=== PATIENT | male | born 1930 | race Caucasian/White ===

== ENCOUNTER 2016-05-22 22:28 | Inpatient (IN) ==
[2016-05-22 23:23] LABS: Basophils # (Auto) 0.1 K/mcL (0.0-0.3); Basophils % (Auto) 0.9 % (0.0-2.0); Eosinophils # (Auto) 0 K/mcL (0.0-0.7); Eosinophils % (Auto) 0.6 % (0.0-7.0); Granulocytes % (Auto) 77.3 % (38.0-78.0); Lymphocytes # (Auto) 0.5 K/mcL (1.5-4.8); Lymphocytes % (Auto) 8.4 % (15.5-49.0); Mean Cell Volume 71.8 fL (80.0-100.0); Mean Corpuscular HGB Conc 31.1 g/dL (31.0-36.0); Mean Corpuscular Hemoglobin 22.4 pg (26.0-34.0); Monocytes # (Auto) 0.8 K/mcL (0.1-0.9); Monocytes % (Auto) 12.8 % (1.0-9.0); Platelet Count 126 K/mcL (140-440); RBC 4.55 M/mcL (4.50-5.90); Red Cell Distribution Width 31.6 % (11.5-14.5)
[2016-05-22 23:30] LABS: ALT/SGPT 25 U/l (0-40); Albumin 3.7 gm/dL (3.2-5.2); Albumin/Globulin Ratio 1.3 (1.0-2.3); Alkaline Phosphatase 40 U/L (39-117); Blood Urea Nitrogen 18 mg/dl (8-23)
[2016-05-23] MEDS ORDERED: DEXTROSE 50% 50 ML VIAL IV ONE (01:14)
[2016-05-23] MEDS ORDERED: DEXTROSE 50% 50 ML SYRINGE IV ONE (01:17)
--- NOTE | 2016-05-23 07:16 | Emergency Department Note ---
Fall HPI - General Chief Complaint: Fall Stated Complaint: fall Time Seen by Provider: 05/22/16 22:52 Source: EMS Mode of arrival: EMS - History of Present Illness HPI Narrative: This patient lives at [facility] and has taking several falls today hitting his head and left hip. It appears the etiology of the falls as hypoglycemia. His blood sugars in the 30s when EMS arrived, he is currently getting antibiotics for cellulitis. MD Complaint: fall - Related Data Home Medications Medication Instructions Recorded Confirmed Carvedilol [Coreg] 12.5 mg PO BIDCC 04/15/16 05/20/16 Digoxin [Lanoxin] 125 mcg PO DAILY 04/15/16 05/20/16 Donepezil [Aricept] 10 mg PO HS 04/15/16 05/20/16 Insulin Glargine, Human [Lantus] 37 unit SQ HS 04/15/16 05/20/16 Insulin Lispro [HumaLOG] 7 unit SQ DAILY 04/15/16 05/20/16 Levothyroxine [Synthroid] 75 mcg PO DAILY 04/15/16 05/20/16 Niacin [Niacor] 500 mg PO HS 04/15/16 05/20/16 Omeprazole [Prilosec] 20 mg PO DAILY 04/15/16 05/20/16 Oxybutynin Chloride [Oxybutynin 10 mg PO DAILY 04/15/16 05/20/16 Chloride ER] Pravastatin [Pravachol] 80 mg PO HS 04/15/16 05/20/16 sitaGLIPtin [Januvia] 50 mg PO DAILY 04/15/16 05/20/16 Albuterol Sulfate [Ventolin] 2.5 mg NEB DAILY 05/14/16 05/20/16 Cholecalciferol (Vitamin D3) 2,000 unit PO DAILY 05/14/16 05/20/16 [Vitamin D] Clobetasol Propionate/Emoll 15 gm TP DAILY 05/14/16 05/20/16 [Clobetasol Emollient 0.05% Crm] Docusate Sodium [Colace] 100 mg PO BID 05/14/16 05/20/16 HYDROmorphone HCL [Dilaudid] 2 mg PO Q4-6HP PRN 05/14/16 05/20/16 Lisinopril [Zestril] 40 mg PO DAILY 05/14/16 05/20/16 Polyethylene Glycol 3350 17 gm PO QDP PRN 05/14/16 05/20/16 Previous Rx's Medication Instructions Recorded Clindamycin [Cleocin] 300 mg PO TID #60 capsule 04/15/16 Furosemide [Lasix] 40 mg PO BID #30 tablet 04/15/16 Allergies Allergy/AdvReac Type Severity Reaction Status Date / Time morphine AdvReac Unknown Unknown Verified 05/14/16 07:15 Review of Systems Constitutional: Denies: fever Eyes: Denies: eye pain ENT ED: Denies: ear pain Cardiovascular: Denies: chest pain Respiratory: Denies: cough Gastrointestinal: Denies: abdominal pain, nausea Genitourinary: Denies: urgency Musculoskeletal: Denies: back pain Integumentary: Denies: rash Neurological: Reports: headache Psychiatric: Denies: anxiety Endocrine: Denies: fatigue Fall PMH - Past Medical History Medical history: Reports: arthritis, atrial fibrillation, CHF, COPD, CVA, dementia, diabetes, GERD, hyperlipidemia, hypertension, thyroid disease Surgical history ED: Reports: cataract, orthopedic, other Physical Exam - General Limitations: no limitations General appearance: alert - Head Head exam: atraumatic - Eye Eye exam: Present: normal appearance - ENT ENT exam: normal exam - Neck Neck exam: Present: normal inspection - Chest Chest inspection: Present: normal inspection - Respiratory Respiratory exam: Present: normal lung sounds bilaterally - Cardiovascular Cardiovascular exam: Present: regular rate, normal rhythm, normal heart sounds - Abdominal Exam Abdominal exam: Present: soft, distention. Absent: tenderness, guarding - Neurological Exam Neurological exam: Present: alert - Psychiatric Psychiatric exam: Present: normal affect - Skin Skin exam: Present: warm, dry Course Vital Signs Temperature 97.6 F 05/22/16 22:30 Pulse Rate 63 05/22/16 22:30 Respiratory Rate 19 05/22/16 22:30 Blood Pressure 145/63 05/22/16 22:30 Pulse Oximetry (%) 99 05/22/16 22:30 Temperature 97.6 F 05/22/16 22:30 Pulse Rate 54 L 05/23/16 06:33 Respiratory Rate 17 05/22/16 22:46 Blood Pressure 139/52 05/23/16 06:33 Pulse Oximetry (%) 95 02/18/17 06:33 Fall - [facility] Narrative Medical decision making narrative: We have no neurosurgeon coverage available in the [facility] and were unable to find a bed for this patient in [place], [facility], or [place]. Previous experience is that neurosurgeons will rescan this small subdural to see if there is any growth in it. With that in mind we kept the patient in emergency room through the night and will rescan him this morning. He has been doing very well with no neurologic change in his blood sugar has remained over [address] on the [address]. Repeat CT scan today is unchanged and the radiologist as not even convinced that it is a subdural. Patient's blood sugar has been up and down through the night. He is on the unassisted side at [facility] and family like to give him on the assisted side. We'll admit him over the weekend in order to adjust his insulin and arrange for transfer to assisted. - Lab Data Lab results reviewed: Yes I reviewed the patient's lab results. Result diagrams: 05/22/16 22:38 05/22/16 22:38 Lab Results 05/22/16 05/22/16 05/22/16 Range/Units 22:38 22:38 22:53 WBC 6.3 (4.5-11.0) K/mcL RBC 4.55 (4.50-5.90) M/mcL Hgb 10.2 L (13.5-16.5) g/dL Hct 32.7 L (41.0-55.0) % MCV 71.8 L (80.0-100.0) fL MCH 22.4 L (26.0-34.0) pg MCHC 31.1 (31.0-36.0) g/dL RDW 31.6 H (11.5-14.5) % Plt Count 126 L (140-440) K/mcL MPV 9.9 (7.4-10.4) fL Gran % 77.3 (38.0-78.0) % Lymph % (Auto) 8.4 L (15.5-49.0) % [place] % (Auto) 12.8 H (1.0-9.0) % Eos % (Auto) 0.6 (0.0-7.0) % Baso % (Auto) 0.9 (0.0-2.0) % Gran # 4.9 (1.8-8.0) K/mcL Lymph # 0.5 L (1.5-4.8) K/mcL [place] # 0.8 (0.1-0.9) K/mcL Eos # 0 (0.0-0.7) K/mcL Baso # 0.1 (0.0-0.3) K/mcL POC PT 14.7 sec POC INR 1.2 (0.9-1.2) Sodium 134 (133-145) mmol/L Potassium 4.1 (3.3-5.1) mmol/L Chloride 92 L (96-108) mmol/L Carbon Dioxide 27 (22-30) mmol/L Anion Gap 15.0 (8-16) BUN 18 (8-23) mg/dl Creatinine 1.8 H (0.7-1.2) mg/dl GFR Calculation 33 Glucose 148 H (70-105) mg/dL Calcium 9.6 (8.6-10.4) mg/dl Total Bilirubin 0.5 (0.0-1.0) mg/dL AST 38 H (0-37) U/l ALT 25 (0-40) U/l Alkaline Phosphatase 40 (39-117) U/L Total Protein 6.5 (5.9-8.4) gm/dL Albumin 3.7 (3.2-5.2) gm/dL Globulin 2.8 (2.2-3.7) gm/dL Albumin/Globulin Ratio 1.3 (1.0-2.3) - Radiology Data Radiology results reviewed: Yes I reviewed the patient's radiology results. (x- ray of right hip was negative.CT showed a 2 mm small subdural in the right frontal temporal region) Disposition Clinical Impression: Hypoglycemia, Falls frequently Disposition: Xfer As Outpt/Obs ([facility]) Condition: Good Referrals: Pina Vizcarra MD [Primary Care Provider] - Time of Disposition: 08:59
--- NOTE | 2016-05-23 08:55 | Cat Scan Report ---
History: Follow-up subdural hematoma after recent fall and head injury. Findings: The brain was imaged without contrast at 2.5 mm intervals. There is a small band of thickened dura lateral to the right temporal lobe near the sylvian fissure. Measures up to 2 mm thickness. It is nearly isodense with the adjacent cortex. This has not changed from the prior study done on 05/22/16. It was not seen on 04/15/16. This does not have the appearance of an acute subdural hematoma and could be a subacute hematoma. No other intracranial hemorrhage is present. There are evolving infarcts in the white matter involving the right smith radiata, lateral to the anterior body the right lateral ventricle. There are also evolving lacunar infarct along the posterior lateral border of the right putamen and the adjacent external capsule. These have enlarged since 04/15/16. Patient has diffuse white matter ischemic changes in the frontal and parietal lobes bilaterally. There is also mild generalized cerebral atrophy. Ventricles are mildly dilated. This is unchanged. Bone windows show no skull fracture. Impression: Stable thin band of dural thickening lateral to the right temporal lobe and sylvian fissure which may be a subacute subdural hematoma. Measures 2 mm in thickness. Evolving infarcts involving the right smith radiata and right basal ganglia Dr. Gill was called with results Interpreted and Authenticated by: Edwar Castañeda 05/23/16
--- NOTE | 2016-05-23 08:57 | Cat Scan Report ---
History: Fell and hit head Findings: The brain was imaged without contrast at 2.5 mm intervals. There is a thin band of dural thickening lateral to the right temporal lobe extending to the level of the sylvian fissure. Measures up to 2 mm in thickness. The attenuation is similar to that of the adjacent overlying cortex. There is no underlying skull fracture. This is a new finding since 04/15/16. There is a periventricular white matter infarct involving the right smith radiata and there are lacunar infarcts in the right putamen and external capsule. These infarcts have enlarged since 04/15/16. There is a smaller old lacunar infarct along the lateral border of the left putamen. There is generalized cerebral atrophy. Patient has diffuse white matter ischemia or degeneration in the frontal and parietal lobes bilaterally. The ventricles are mildly dilated. This is somewhat out of proportion to the degree of underlying cerebral atrophy. Bone windows show no skull fracture. Impression: Small band of dural thickening lateral to the right temporal lobe which could be a subacute subdural hematoma. It measures 2 mm in thickness. Evolving infarcts in the right smith radiata and right basal ganglia Interpreted and Authenticated by: Edwar Castañeda 05/23/16
--- NOTE | 2016-05-23 09:00 | XRay Report ---
HISTORY: Reason for Exam:Fall, left hip pain. FINDINGS: There is no fracture or dislocation. Patient has arthritis in both hips. 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 Small spurs along the margins of the acetabular roofs and the greater trochanters. Large spurs forming along the lateral borders of both iliac crests. There are densely calcified plaques in the iliac and femoral arteries. There is a clip overlying the symphysis pubis. There has been no significant change since 04/13/11. IMPRESSION: No fracture Interpreted and Authenticated by: Edwar Castañeda 05/23/16
[2016-05-23] MEDS ORDERED: NALOXONE HCL 0.4 MG/ML VIAL IV PRN (13:19)
[2016-05-23] MEDS ORDERED: BISACODYL 5 MG TABLET PO PRN (13:19)
[2016-05-23] MEDS ORDERED: HYDROmorphone 2 MG TABLET PO PRN (13:19)
[2016-05-23] MEDS ORDERED: DEXTROSE 50% 50 ML VIAL IV PRN (13:19)
[2016-05-23] MEDS ORDERED: ONDANSETRON 4 MG/2 ML VIAL IV PRN (13:19)
[2016-05-23] MEDS: IPRATROPIUM/ALBUTEROL 3 ML AMPUL.NEB NEB SCH ×2 (14:04→19:10)
[2016-05-23] MEDS: DAPTOmycin 500 MG VIAL IV SCH (15:10)
[2016-05-23] MEDS: DIGOXIN 125 MCG TABLET PO SCH (15:17)
[2016-05-23] MEDS: ACETAMINOPHEN 325 MG TABLET PO PRN (15:17)
[2016-05-23] MEDS: CLINDAMYCIN 150 MG CAPSULE PO SCH ×2 (15:20→22:08)
[2016-05-23] MEDS ORDERED: 0.9 % SODIUM CHLORIDE 10 ML SYRINGE IV PRN (15:35)
--- NOTE | 2016-05-23 15:42 | Internal Med History&Physical ---
Medical - H&P: HPI Patient information: Note initiated : 05/23/16 at 3:38 pm Service Date, if different from initiated Date: [] Patient: Ryan Nunes 86 y/o M admitted on 05/23/16 for fall. Chief Complaint: [] History of present illness: Mr. Nunes is a 86 year old male who was brought in for increased frequency of falls. The patient has h/o DM, on insulin lantus and sitaglipitin. The patient was noted to have low blood glucose values on examination 36 as per verbal report. The patient was given d50- with improvement in his numbers. The patient has been in the ER overnight and his blood glucose values have remained stable. He is tolerating po well. The patient during his fall also hit his head and hip, Head CT showed possible sub dural hematoma, no neuro bed was available in the night and a repeat CT done after 8-10 hrs showed likely sub acute sub dural hematoma. The patient CT also showed multiple evolving CVA, the patient clinically did not have any new focal deficit. The patient has h/o afib, but not on any anticoagulation. MRI of the head along with mra head was obtained, offical read pending but no acute findings noted. The patient has a left leg wound, which is being treated by the wound care clinic, patient is on daptomycin and clindamycin He has a picc in place. clinically no e/o systemic infection at this time. he admits to have missed a couple of meals, but does not give a reason why. The patient is otherwise a poor historian. - Constitutional Constitutional: Present: fatigue, frequent falls. Absent: chills - EENT Eyes: Absent: blind spots, blurry vision Nose, mouth and throat: Absent: abnormal hearing, bleeding gums - Cardiovascular Cardiovascular: Absent: chest pain, pedal edema, rapid heart rate - Respiratory Respiratory: Absent: cough, dyspnea on exertion, wheezing - Gastrointestinal Gastrointestinal: Absent: abdominal pain, nausea, vomiting - Genitourinary Genitourinary: Absent: nocturia, urinary frequency, urinary hesitancy - Musculoskeletal Additional comments: hip pain - Neurological Neurological: Present: weakness. Absent: disequilibrium, dizziness, focal weakness, vertigo - Psychiatric Psychiatric: Absent: anxiety, confusion - Endocrine Endocrine: Absent: polydipsia, polyphagia, polyuria - Hematologic/Lymphatic Hematologic/Lymphatic: Absent: easy bleeding, easy bruising - Allergic/Immunologic Allergic/Immunologic: Absent: uticaria, wheezing Medical - H&P: PMH Medical history: Medical History Falls frequently (Acute) Hypoglycemia (Acute) Cellulitis and abscess of foot (Acute) Hydrocephalus (Acute) Iron deficiency anemia (Acute) Lymphedema (Acute) afib DM Dementia, alzhimers hld anemia copd/ emphysema Surgical history: cholecystectomy Family history: reviewed and not pertinent Social history: lives in facility/ independent side. ex smoker no recreational drugs no etoh reported Medical - H&P: Meds Home Medications Medication Instructions Recorded Confirmed Type Carvedilol [Coreg] 12.5 mg PO BIDCC 04/15/16 05/23/16 History Digoxin [Lanoxin] 125 mcg PO DAILY 04/15/16 05/23/16 History Donepezil [Aricept] 10 mg PO HS 04/15/16 05/23/16 History Insulin Glargine, Human [Lantus] 37 unit SQ HS 04/15/16 05/23/16 History Insulin Lispro [HumaLOG] 7 unit SQ DAILY 04/15/16 05/23/16 History Levothyroxine [Synthroid] 75 mcg PO DAILY 04/15/16 05/23/16 History Niacin [Niacor] 500 mg PO HS 04/15/16 05/23/16 History Omeprazole [Prilosec] 20 mg PO DAILY 04/15/16 05/23/16 History Oxybutynin Chloride [Oxybutynin 10 mg PO DAILY 04/15/16 05/23/16 History Chloride ER] Pravastatin [Pravachol] 80 mg PO HS 04/15/16 05/23/16 History sitaGLIPtin [Januvia] 50 mg PO DAILY 04/15/16 05/23/16 History Albuterol Sulfate [Ventolin] 2.5 mg NEB DAILY 05/14/16 05/23/16 History Cholecalciferol (Vitamin D3) 2,000 unit PO DAILY 05/14/16 05/23/16 History [Vitamin D] Clobetasol Propionate/Emoll 15 gm TP DAILY 05/14/16 05/23/16 History [Clobetasol Emollient 0.05% Crm] Docusate Sodium [Colace] 100 mg PO BID 05/14/16 05/23/16 History HYDROmorphone HCL [Dilaudid] 2 mg PO Q4-6HP PRN 05/14/16 05/23/16 History Polyethylene Glycol 3350 17 gm PO QDP PRN 05/14/16 05/23/16 History Allergies Allergy/AdvReac Type Severity Reaction Status Date / Time morphine AdvReac Unknown Unknown Verified 05/14/16 07:15 Medical - H&P: Exam - Constitutional Vitals: Temp Pulse Resp BP Pulse Ox 99.0 F 82 14 152/62 98 05/23/16 13:19 05/23/16 14:12 05/23/16 14:12 05/23/16 13:19 05/23/16 14:07 General appearance: average body habitus, cooperative - Head Head exam: Present: atraumatic, normal inspection - Eye Eye exam: Present: conjunctival injection, PERRL. Absent: periorbital tenderness, scleral icterus - ENT ENT exam: Present: mucous membranes dry - Neck Neck exam: Present: normal inspection - Respiratory Respiratory exam: Present: normal respiratory exam. Absent: accessory muscle use, respiratory distress, rhonchi, stridor, wheezes - Cardiovascular Cardiovascular exam: Present: irregular rhythm, +S1, +S2 - GI/Abdominal GI/Abdominal exam: Present: normal bowel sounds, soft. Absent: guarding, rebound, tenderness - Extremities Exam Extremities exam: Present: normal capillary refill, pedal edema, Foot pink and warm Additional comments: left leg in dressings. - Neurological Exam Neurological exam: Present: alert, CN II-XII intact. Absent: motor sensory deficit - Psychiatric Psychiatric exam: Absent: agitated, anxious - Skin Skin exam: Absent: rash, urticaria, warm Medical - H&P: Reslt - Labs CBC & Chem 7: 05/22/16 22:38 05/22/16 22:38 Medical - H&P: A/P (1) Diabetes mellitus Current visit: Yes Status: Acute (2) Hypertension Current visit: Yes Status: Acute (3) COPD (chronic obstructive pulmonary disease) Current visit: Yes Status: Acute (4) Atrial fibrillation Current visit: Yes Status: Acute (5) CVA (cerebral vascular accident) Current visit: Yes Status: Acute (6) Renal failure Current visit: Yes Status: Acute (7) Hypoglycemia Current visit: Yes Status: Acute - Narrative A/P Narrative: The main reason patient is here is hypoglycemia and increased frequency of falls , Etiology of hypoglycemia is not sure, patient reports that he may have missed a few meals, but he is a poor historian, will hold his home meds and only using sliding scale insulin for now to manage blood glucose levels. will get Chest X ray and UA to r/o any other infectious source. He is on antibiotics for his left leg cellulitis by the wound care clinic, will get wound care consult, continue antibiotics for now. DM monitor glucose, hold home meds HTN resume home meds CVA- evolving strokes, no obvious gross deficit noted. MRI pending, get carotid duplex and Echo, monitor on tele for 24 hrs. COPD- continue with duonebs q 6 hrs afib- Rate stable, on dig and bb, continue same, not on anticoagulation, ? monitor. Need for anticoagulation to be decided by PCP Subdural hematoma- CT head stable, MRI prelim neg, monitor on tele, neurochecks q 4 hrs for now. DVT scd for now Diet carb controlled OT/ PT consult, ST pugh. Medical - H&P: Qual - Stroke Symptom Onset Unknown: No - VTE Deep Vein Thrombosis/Pulmonary Embolism Present on Admission: No
[2016-05-23] MEDS: CARVEDILOL 12.5 MG TABLET PO SCH (17:46)
[2016-05-23] MEDS: INSULIN LISPRO 1 UNIT/0.01 ML UNIT SQ SCH ×2 (17:47→22:10)
[2016-05-23 17:50] LABS: Appearance,Urine CLEAR; Bacteria,Urine 0 /hpf (0); Bilirubin,Urine NEG (NEG); Color,Urine YELLOW; Glucose,Urine (UA) NEGATIVE (NEG); Leukocyte Esterase,Urine NEG /uL (NEG); Nitrate,Urine NEG (NEG); Protein,Urine NEG (NEG); Specific Gravity,Urine 1.013 (1.000-1.035); Sperm,Urine PRESENT /hpf (ABSENT); Urine Blood NEG mg/dL (<0.03); Urine Hyaline Cast 1 /lpf (0-2); Urine RBC 1 /hpf (0-1); Urine Squamous Epithelial Cell < 1 /hpf (0-4); Urine WBC 1 /hpf (0-4); Urobilinogen,Urine NEG (NEG)
[2016-05-23] MEDS ORDERED: FAMOTIDINE/PF 20 MG/2 ML VIAL IV SCH (21:00)
[2016-05-23] MEDS ORDERED: SIMVASTATIN 40 MG TABLET PO SCH (21:00)
[2016-05-23] MEDS ORDERED: DONEPEZIL 10 MG TABLET PO SCH (21:00)
[2016-05-23] MEDS: DOCUSATE SODIUM 100 MG CAPSULE PO SCH (22:08)
[2016-05-23] MEDS: FUROSEMIDE 40 MG TABLET PO SCH (22:15)
[2016-05-24] MEDS: IPRATROPIUM/ALBUTEROL 3 ML AMPUL.NEB NEB SCH ×4 (02:09→19:03)
[2016-05-24 07:04] LABS: Creatine Kinase 104 IU/L (24-195)
[2016-05-24 07:05] LABS: ALT/SGPT 20 U/l (0-40); Albumin 3.5 gm/dL (3.2-5.2); Albumin/Globulin Ratio 1.4 (1.0-2.3); Alkaline Phosphatase 37 U/L (39-117); Bilirubin,Direct < 0.2 mg/dL (0.0-0.3); Blood Urea Nitrogen 15 mg/dl (8-23); Gamma Glutamyl Transpeptidase 35 U/L (8-61); Phosphorous 3.4 mg/dL (2.7-4.5); Uric Acid 7.7 mg/dL (2.5-8.0)
[2016-05-24] MEDS: ACETAMINOPHEN 325 MG TABLET PO PRN ×2 (07:21→14:32)
[2016-05-24] MEDS: INSULIN LISPRO 1 UNIT/0.01 ML UNIT SQ SCH ×4 (07:24→20:36)
[2016-05-24] MEDS: DOCUSATE SODIUM 100 MG CAPSULE PO SCH ×2 (07:25→20:35)
[2016-05-24] MEDS: FUROSEMIDE 40 MG TABLET PO SCH (07:25)
[2016-05-24] MEDS ORDERED: LEVOTHYROXINE 75 MCG TABLET PO SCH (07:30)
[2016-05-24 07:58] LABS: Basophils # (Auto) 0 K/mcL (0.0-0.3); Basophils % (Auto) 0 % (0.0-2.0); Eosinophils # (Auto) 0.1 K/mcL (0.0-0.7); Eosinophils % (Auto) 1.4 % (0.0-7.0); Granulocytes % (Auto) 72.4 % (38.0-78.0); Lymphocytes # (Auto) 0.5 K/mcL (1.5-4.8); Mean Cell Volume 71.8 fL (80.0-100.0); Mean Corpuscular HGB Conc 31.3 g/dL (31.0-36.0); Mean Corpuscular Hemoglobin 22.5 pg (26.0-34.0); Monocytes # (Auto) 0.4 K/mcL (0.1-0.9); Monocytes % (Auto) 12.2 % (1.0-9.0); Platelet Count 93 K/mcL (140-440); RBC 4.37 M/mcL (4.50-5.90); Red Cell Distribution Width 31.7 % (11.5-14.5)
[2016-05-24] MEDS: CARVEDILOL 12.5 MG TABLET PO SCH ×2 (08:00→17:50)
[2016-05-24] MEDS: CLINDAMYCIN 150 MG CAPSULE PO SCH ×3 (08:00→20:35)
[2016-05-24] MEDS ORDERED: OXYBUTYNIN CHLORIDE 5 MG TAB.XL.24H PO SCH (09:00)
[2016-05-24] MEDS ORDERED: VITAMIN D3 1,000 UNIT TABLET PO SCH (09:00)
[2016-05-24] MEDS ORDERED: 0.9 % SODIUM CHLORIDE 1,000 ML IV SCH (10:30)
--- NOTE | 2016-05-24 10:33 | Internal Med Progress Note ---
Medical - PN: Subj Patient information: Note initiated : 05/24/16 at 10:29 am Service Date, if different from initiated Date: [] Patient: Ryan Nunes 86 y/o M admitted on 05/23/16 for fall. Chief Complaint: [] Interval history: The patient seen examined, no acute overnight events no events on telemtery Sitting comfortably eating his breakfast, no complaints. MRI reviewed no acute changes, no acute cva or even sub acute cva reported pt had recent echo, will cancel ordered given no TIA/ CVA d/c carotid duplex for now. Glucose levels still tenous, but not needing d50, not on any hypoglycemic agents now tolerating his meals well Pertinent ROS: Denies headache, dizziness Denies chest pain, palpitations Denies cough or shortness of breath Denies abdominal pain, nausea or vomiting. - Constitutional Vitals: Vital Signs Temp Pulse Resp BP Pulse Ox 99.3 F 69 18 138/59 99 05/24/16 08:00 05/24/16 08:00 05/24/16 08:00 05/24/16 04:00 05/24/16 08:00 Period Temp Pulse Resp BP Sys/Francis Pulse Ox Last 24 Hr 98.2 F-99.7 F 65-82 14-20 124-152/47-62 97-99 Intake and Output 05/23/16 05/24/16 05/24/16 21:59 05:59 13:59 Intake Total 840 / 840 Output Total 251 / 251 2976 / 2976 Balance 589 / 589 -2976 / -2976 Weight 197 lb 6.4 oz Intake & Output: Intake & Output 05/23/16 05/24/16 05/24/16 21:59 05:59 13:59 Intake Total 840 / 840 Output Total 251 / 251 2976 / 2976 Balance 589 / 589 -2976 / -2976 Weight 197 lb 6.4 oz Intake: Oral 840 / 840 Output: Void Amount 250 / 250 2975 / 2975 # of times incontinent of urine Other: Meal Dinner Percent of Meal Consumed 100% Feeding Ability Assist with Tray Set Up # Bowel Movements 0 Exam: Constitutional; Afebrile, cooperative, alert, not in distress. Eyes- No icterus, Pupils equal, reactive, No periorbital swelling Ears- Ext ear normal, hearing normal to conversation. Neck- Midline trachea, supple Respiratory system: Air Entry equal on both sides, No crackles or wheezing, no rhonchi. CVS- Rate normal, rhythm irregular, S1,S2 heard, no gallop, no rub. Abdomen- Soft nontender abdomen, no organomegaly, no tenderness, no guarding or rigidity, TOOL/DIE MAKER- AOOx3, moving all extremities, no focal deficit noted. Medical - PN: Obj Da - Labs CBC & Chem 7: 05/24/16 04:00 05/24/16 04:00 Labs: Abnormal Lab Results 05/24/16 05/24/16 05/23/16 04:00 04:00 16:43 WBC 3.6 L RBC 4.37 L Hgb 9.8 L Hct 31.4 L MCV 71.8 L MCH 22.5 L RDW 31.7 H Plt Count 93 L Lymph % (Auto) 14.0 L [place] % (Auto) 12.2 H Lymph # 0.5 L Creatinine 1.7 H Alkaline Phosphatase 37 L Urine Sperm Present A Meds: Medications Acetaminophen (Tylenol) 650 mg PO Q6HP PRN PRN Reason: PAIN/FEVER > 101 Last Admin: 05/24/16 07:21 Dose: 650 mg Albuterol/Ipratropium (Duoneb) 3 ml NEB Q6HRT [facility] Last Admin: 05/24/16 07:45 Dose: 3 ml Bisacodyl (Dulcolax) 10 mg PO DAILYP PRN PRN Reason: Constipation Carvedilol (Coreg) 12.5 mg PO BIDCC [facility] Last Admin: 05/23/16 17:46 Dose: 12.5 mg Clindamycin HCl (Cleocin) 300 mg PO TID [facility] Last Admin: 05/23/16 22:08 Dose: 300 mg Daptomycin (Cubicin) 500 mg IV Q24H [facility] Last Admin: 05/23/16 15:10 Dose: 500 mg Dextrose (Dextrose 50%) 0 ml IV UD PRN PRN Reason: Hypoglycemia Diagnostic Test (Pha) (Accu-Chek) 1 each FS ACHS [facility] Last Admin: 05/24/16 07:23 Dose: 1 each Digoxin (Lanoxin) 125 mcg PO DAILY@1400 [facility] Last Admin: 05/23/16 15:17 Dose: 125 mcg Docusate Sodium (Colace) 100 mg PO BID [facility] Last Admin: 05/24/16 07:25 Dose: 100 mg Donepezil HCl (Aricept) 10 mg PO HS [facility] Last Admin: 05/23/16 22:08 Dose: 10 mg Famotidine (Pepcid) 20 mg IV HS [facility] Last Admin: 05/23/16 22:10 Dose: 20 mg Heparin Sodium (Porcine) (Heparin Flush) 2 ml IV Q12 [facility] Last Admin: 05/24/16 07:21 Dose: 2 ml Hydromorphone HCl (Dilaudid) 2 mg PO Q4-6HP PRN PRN Reason: Pain Sodium Chloride (Sodium Chloride 0.9%) 1,000 mls @ 100 mls/hr IV .Q10H [facility] Stop: 05/25/16 06:29 Insulin Human Lispro (Humalog) 0 unit SQ ACHS [facility] PRN Reason: Protocol Last Admin: 05/24/16 07:24 Dose: Not Given Levothyroxine Sodium (Synthroid) 75 mcg PO QAMAC [facility] Last Admin: 05/24/16 07:22 Dose: 75 mcg Naloxone HCl (Narcan) 0.1 mg IV Q2MIN PRN PRN Reason: Opiate Reversal Ondansetron HCl (Zofran) 4 mg IV Q4HP PRN PRN Reason: Nausea And Vomiting Oxybutynin Chloride (Ditropan Xl) 10 mg PO DAILY [facility] Simvastatin (Zocor) 40 mg PO HS [facility] Last Admin: 05/23/16 22:09 Dose: 40 mg Sodium Chloride (Saline Flush) 10 ml IV UD PRN PRN Reason: FLUSH Tamsulosin HCl (Flomax) 0.4 mg PO [facility] Vitamin D (Vitamin D3) 2,000 unit PO DAILY [facility] Last Admin: 05/24/16 07:24 Dose: 2,000 unit Medical - PN: A/P - Time Spent With Patient Total time spent is greater than 50% in coordination of care (as documented) at patient's floor/unit and/or counseling patient: (1) Diabetes mellitus Status: Acute Current Visit: Yes (2) Hypertension Status: Acute Current Visit: Yes (3) COPD (chronic obstructive pulmonary disease) Status: Acute Current Visit: Yes (4) Atrial fibrillation Status: Acute Current Visit: Yes (5) CVA (cerebral vascular accident) Status: Acute Current Visit: Yes (6) Renal failure Status: Acute Current Visit: Yes (7) Hypoglycemia Status: Acute Current Visit: Yes - Narrative A/P Narrative: The patient glucose is stable, but has few low normal readings, off his DM meds tolerating PO well continue to monitor his glucose levels, keep home meds on hold Renal failure- creat somewhat better at 1.7, d/c diuretics, and give some IVF to monitor this further, baseline number not known. CVA/ TIA - MRI neg, no acute abnormality. continue to monitor afib- HR stable on digoxin and beta ricki continue same. Cellutlits/ - Await wound care evaluation, continue clindamycin and daptomycin as per wound care management from outpatient. DVT scd, not on hep due to recent sdh on CT scan. BPH/ some issues with urination today, ramirez placed by nursing with . 400 cc of urine, started on flomax. Will d/c ramirez in AM. Dispo- Likely in AM to assisted living at [facility]. Medical - PN: Qual - Stroke Symptom Onset Unknown: No - VTE Deep Vein Thrombosis/Pulmonary Embolism Present on Admission: No
[2016-05-24] MEDS: DAPTOmycin 500 MG VIAL IV SCH (13:17)
[2016-05-24] MEDS: DIGOXIN 125 MCG TABLET PO SCH (13:19)
--- NOTE | 2016-05-24 13:20 | General Surgery Consult Note ---
History of Present Illness Patient information: Note initiated : 05/24/16 at 1:14 pm Service Date, if different from initiated Date: [] Patient: Ryan Nunes 86 y/o M admitted on 05/23/16 for fall. Chief Complaint: [] Consult date: 05/24/16 Requesting physician: Rosa Elena Celis History of present illness: wound care consult. Patient is currently hospitalized for medical problems of repeated fall. Suspected subdural hematoma. Hypoglycemia, now corrected. This patient was seen in the wound care center. He underwent extirpation of the dystrophic fungal infected toenails. The associated skin and soft tissue infection surrounding the toes was being treated with intravenous daptomycin and oral Cleocin tablets. Currently, patient's metabolic problems have been treated. I first saw him in the intensive care unit the last evening and reassessed him this morning. Medications and Allergies Home Medications Medication Instructions Recorded Confirmed Type Carvedilol [Coreg] 12.5 mg PO BIDCC 04/15/16 05/23/16 History Digoxin [Lanoxin] 125 mcg PO DAILY 04/15/16 05/23/16 History Donepezil [Aricept] 10 mg PO HS 04/15/16 05/23/16 History Insulin Glargine, Human [Lantus] 37 unit SQ HS 04/15/16 05/23/16 History Insulin Lispro [HumaLOG] 7 unit SQ DAILY 04/15/16 05/23/16 History Levothyroxine [Synthroid] 75 mcg PO DAILY 04/15/16 05/23/16 History Niacin [Niacor] 500 mg PO HS 04/15/16 05/23/16 History Omeprazole [Prilosec] 20 mg PO DAILY 04/15/16 05/23/16 History Oxybutynin Chloride [Oxybutynin 10 mg PO DAILY 04/15/16 05/23/16 History Chloride ER] Pravastatin [Pravachol] 80 mg PO HS 04/15/16 05/23/16 History sitaGLIPtin [Januvia] 50 mg PO DAILY 04/15/16 05/23/16 History Albuterol Sulfate [Ventolin] 2.5 mg NEB DAILY 05/14/16 05/23/16 History Cholecalciferol (Vitamin D3) 2,000 unit PO DAILY 05/14/16 05/23/16 History [Vitamin D] Clobetasol Propionate/Emoll 15 gm TP DAILY 05/14/16 05/23/16 History [Clobetasol Emollient 0.05% Crm] Docusate Sodium [Colace] 100 mg PO BID 05/14/16 05/23/16 History HYDROmorphone HCL [Dilaudid] 2 mg PO Q4-6HP PRN 05/14/16 05/23/16 History Polyethylene Glycol 3350 17 gm PO QDP PRN 05/14/16 05/23/16 History Allergies Allergy/AdvReac Type Severity Reaction Status Date / Time morphine AdvReac Unknown Unknown Verified 05/14/16 07:15 Exam Temp Pulse Resp BP Pulse Ox 99.3 F 69 18 138/59 99 05/24/16 08:06 05/24/16 08:00 05/24/16 08:00 05/24/16 04:00 05/24/16 08:00 - General physical appearance well developed, well nourished, no distress, no pain - Eyes PERRL, normal ocular movement - ENT normal pinna, normal nares, normal mucosa, no congestion - Head Head exam IM: Present: atraumatic, normal inspection, normocephalic - Neck no masses, no bruits, trachea midline, no lymphadectomy, no venous distension - Cardiovascular Cardiovascular exam IM: Present: irregular rhythm - Respiratory normal expansion, normal respiratory effort, clear to auscultation - Abdomen Abdomen: Present: soft, non tender, bowel sounds - Integumentary Present: other (patient has intact dressing over the left foot. There is no staining. No evidence of calf vein tenderness.) - Neurologic Present: normal coordination, other (patient is confused with variable attention span. This is his Baseline. I do not see any focal neurologic deficits.) - Musculoskeletal Present: other (patient moves all 4 extremities. I did not see him stand up or ambulate today.) Results - Labs 05/25/16 03:50 05/25/16 03:50 Abnormal lab results 05/23/16 05/24/16 05/24/16 Range/Units 16:43 04:00 04:00 WBC 3.6 L (4.5-11.0) K/mcL RBC 4.37 L (4.50-5.90) M/mcL Hgb 9.8 L (13.5-16.5) g/dL Hct 31.4 L (41.0-55.0) % MCV 71.8 L (80.0-100.0) fL MCH 22.5 L (26.0-34.0) pg RDW 31.7 H (11.5-14.5) % Plt Count 93 L (140-440) K/mcL Lymph % (Auto) 14.0 L (15.5-49.0) % [place] % (Auto) 12.2 H (1.0-9.0) % Lymph # 0.5 L (1.5-4.8) K/mcL Creatinine 1.7 H (0.7-1.2) mg/dl Alkaline Phosphatase 37 L (39-117) U/L Urine Sperm Present A (ABSENT) /hpf Diabetes panel 05/24/16 Range/Units 04:00 Sodium 134 (133-145) mmol/L Potassium 3.9 (3.3-5.1) mmol/L Chloride 98 (96-108) mmol/L Carbon Dioxide 26 (22-30) mmol/L BUN 15 (8-23) mg/dl Creatinine 1.7 H (0.7-1.2) mg/dl Glucose 75 (70-105) mg/dL Calcium 9.5 (8.6-10.4) mg/dl AST 29 (0-37) U/l ALT 20 (0-40) U/l Alkaline Phosphatase 37 L (39-117) U/L Total Protein 6.0 (5.9-8.4) gm/dL Albumin 3.5 (3.2-5.2) gm/dL Triglycerides 68 (<150) mg/dl Calcium panel 05/24/16 Range/Units 04:00 Calcium 9.5 (8.6-10.4) mg/dl Phosphorus 3.4 (2.7-4.5) mg/dL Albumin 3.5 (3.2-5.2) gm/dL Pituitary panel 05/24/16 Range/Units 04:00 Sodium 134 (133-145) mmol/L Potassium 3.9 (3.3-5.1) mmol/L Chloride 98 (96-108) mmol/L Carbon Dioxide 26 (22-30) mmol/L BUN 15 (8-23) mg/dl Creatinine 1.7 H (0.7-1.2) mg/dl Glucose 75 (70-105) mg/dL Calcium 9.5 (8.6-10.4) mg/dl Adrenal panel 05/24/16 Range/Units 04:00 Sodium 134 (133-145) mmol/L Potassium 3.9 (3.3-5.1) mmol/L Chloride 98 (96-108) mmol/L Carbon Dioxide 26 (22-30) mmol/L BUN 15 (8-23) mg/dl Creatinine 1.7 H (0.7-1.2) mg/dl Glucose 75 (70-105) mg/dL Calcium 9.5 (8.6-10.4) mg/dl Total Bilirubin 0.6 (0.0-1.0) mg/dL AST 29 (0-37) U/l ALT 20 (0-40) U/l Alkaline Phosphatase 37 L (39-117) U/L Total Protein 6.0 (5.9-8.4) gm/dL Albumin 3.5 (3.2-5.2) gm/dL All other labs normal. 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 Resolving distal foot skin and soft tissue inflammation. Leave current dressing clean and dry. change dressing on Wednesday05/25/2016 Status: Acute Priority: Medium
[2016-05-24] MEDS ORDERED: ONDANSETRON 4 MG/2 ML VIAL IV PRN (14:40)
[2016-05-24] MEDS ORDERED: NALOXONE HCL 0.4 MG/ML VIAL IV PRN (14:40)
[2016-05-24] MEDS ORDERED: BISACODYL 5 MG TABLET PO PRN (14:40)
[2016-05-24] MEDS ORDERED: DEXTROSE 50% 50 ML VIAL IV PRN (14:40)
[2016-05-24] MEDS: 0.9 % SODIUM CHLORIDE 1,000 ML IV SCH (16:09)
[2016-05-24] MEDS: FAMOTIDINE/PF 20 MG/2 ML VIAL IV SCH (20:34)
[2016-05-24] MEDS: DONEPEZIL 10 MG TABLET PO SCH (20:35)
[2016-05-24] MEDS: TAMSULOSIN 0.4 MG CAPSULE PO SCH (20:35)
[2016-05-24] MEDS: SIMVASTATIN 40 MG TABLET PO SCH (20:35)
[2016-05-24] MEDS ORDERED: TAMSULOSIN 0.4 MG CAPSULE PO SCH (21:00)
[2016-05-24] MEDS: HYDROmorphone 2 MG TABLET PO PRN (22:39)
[2016-05-25] MEDS: 0.9 % SODIUM CHLORIDE 1,000 ML IV SCH (00:30)
[2016-05-25] MEDS: IPRATROPIUM/ALBUTEROL 3 ML AMPUL.NEB NEB SCH ×4 (03:35→19:11)
[2016-05-25 06:16] LABS: ALT/SGPT 20 U/l (0-40); Albumin 3.2 gm/dL (3.2-5.2); Albumin/Globulin Ratio 1.2 (1.0-2.3); Alkaline Phosphatase 37 U/L (39-117); Bilirubin,Direct < 0.2 mg/dL (0.0-0.3); Blood Urea Nitrogen 17 mg/dl (8-23); Gamma Glutamyl Transpeptidase 37 U/L (8-61); Phosphorous 3.2 mg/dL (2.7-4.5); Uric Acid 7.1 mg/dL (2.5-8.0)
[2016-05-25 06:57] LABS: Basophils # (Auto) 0 K/mcL (0.0-0.3); Basophils % (Auto) 0 % (0.0-2.0); Eosinophils # (Auto) 0 K/mcL (0.0-0.7); Eosinophils % (Auto) 0.9 % (0.0-7.0); Granulocytes % (Auto) 77.2 % (38.0-78.0); Lymphocytes # (Auto) 0.6 K/mcL (1.5-4.8); Lymphocytes % (Auto) 12.8 % (15.5-49.0); Mean Cell Volume 73.1 fL (80.0-100.0); Mean Corpuscular HGB Conc 32.4 g/dL (31.0-36.0); Mean Corpuscular Hemoglobin 23.7 pg (26.0-34.0); Monocytes # (Auto) 0.4 K/mcL (0.1-0.9); Monocytes % (Auto) 9.1 % (1.0-9.0); Platelet Count 88 K/mcL (140-440); RBC 4.29 M/mcL (4.50-5.90); Red Cell Distribution Width 31.3 % (11.5-14.5)
[2016-05-25] MEDS: LEVOTHYROXINE 75 MCG TABLET PO SCH (07:24)
[2016-05-25] MEDS: VITAMIN D3 1,000 UNIT TABLET PO SCH (07:57)
[2016-05-25] MEDS: OXYBUTYNIN CHLORIDE 5 MG TAB.XL.24H PO SCH (07:58)
[2016-05-25] MEDS: DOCUSATE SODIUM 100 MG CAPSULE PO SCH ×2 (07:59→22:47)
[2016-05-25] MEDS: CARVEDILOL 12.5 MG TABLET PO SCH ×2 (07:59→18:56)
[2016-05-25] MEDS: CLINDAMYCIN 150 MG CAPSULE PO SCH ×3 (07:59→22:47)
--- NOTE | 2016-05-25 10:54 | Ultrasound Report ---
CLINICAL INFORMATION: TIA COMPARISON: None. TECHNIQUE: Carotid arteries were imaged in sagittal and transverse planes using 5 mHz linear probe: Doppler, color, and 2D. FINDINGS: See worksheet by the technologist for velocities in PACS Please correlate with CTA CT Angiography or MRA MR Angiography if surgery is contemplated. IMPRESSION: 50% stenosis of the proximal left internal carotid artery on the basis of ICA/CCA ratio of 2.2. The left common and external carotid arteries are widely patent with fibrofatty calcific plaque. Relatively long (1.2 cm) heavily calcific plaque in the proximal right internal carotid artery which precludes accurate Doppler interrogation. There may be a significant stenosis within this heavily calcified shadowing plaque. The right common and external carotid arteries are widely patent. Antegrade flow present in both vertebral arteries Consider: Cervical CT carotid arteriogram to evaluate both proximal internal carotid arteries Interpreted and Authenticated by: Derick Mares 05/25/16
[2016-05-25] MEDS: INSULIN LISPRO 1 UNIT/0.01 ML UNIT SQ SCH ×4 (11:57→23:01)
[2016-05-25] MEDS: DIGOXIN 125 MCG TABLET PO SCH (14:13)
[2016-05-25] MEDS: DAPTOmycin 500 MG VIAL IV SCH (14:14)
[2016-05-25] MEDS: 0.9 % SODIUM CHLORIDE 10 ML SYRINGE IV PRN (14:14)
--- NOTE | 2016-05-25 16:21 | Internal Med Progress Note ---
Medical - PN: Subj Patient information: Note initiated : 05/25/16 at 4:19 pm Service Date, if different from initiated Date: [] Patient: Ryan Nunes 86 y/o M admitted on 05/23/16 for Hypoglycemia, Increased Frequency of Falls. Chief Complaint: [] Interval history: The patient seen examined no acute overnight events glucose readings reviewed, fasting normal, only post prandial is high. considered starting prandin, but its not available in the pharmacy. the patient mental status is stable, neurochecks stable. Renal function still abnl with c reat of 1.7, this is likely his baseline. He is on IV antibiotics for wound care. I reviewed his condition with the daughter in law, there were some concerns with regarding recent colonoscopy and hydrocephalu, pt does have mildly dilated ventricles on CT but this is not a concern in this visit. explained that these issues could be followed up as outpatient The patient is unable to take care of him self given his comorbidites and will need placement. Pertinent ROS: Denies headache, dizziness Denies chest pain, palpitations Denies cough or shortness of breath Denies abdominal pain, nausea or vomiting. - Constitutional Vitals: Vital Signs Temp Pulse Resp BP Pulse Ox 98.4 F 85 18 120/61 97 05/25/16 11:39 05/25/16 13:25 05/25/16 13:25 05/25/16 11:39 05/25/16 11:39 Period Temp Pulse Resp BP Sys/Francis Pulse Ox Last 24 Hr 97.7 F-98.4 F 70-86 14-20 102-142/43-72 94-98 Intake and Output 05/25/16 05/25/16 05/25/16 05:59 13:59 21:59 Intake Total 200 / 200 Output Total 1180 / 1180 600 / 600 Balance -980 / -980 -600 / -600 Intake & Output: Intake & Output 05/25/16 05/25/16 05/25/16 05:59 13:59 21:59 Intake Total 200 / 200 Output Total 1180 / 1180 600 / 600 Balance -980 / -980 -600 / -600 Intake: Oral 200 / 200 Output: Urine Catheter Amount 1130 / 1130 600 / 600 Void Amount 50 / 50 Other: # Bowel Movements 1 Exam: Constitutional; Afebrile, cooperative, alert, not in distress. Eyes- No icterus, Pupils equal, reactive, No periorbital swelling Ears- Ext ear normal, hearing normal to conversation. Neck- Midline trachea, supple Respiratory system: Air Entry equal on both sides, No crackles or wheezing, no rhonchi. CVS- Rate normal, rhythm irregular S1,S2 heard, no gallop, no rub. Abdomen- Soft nontender abdomen, no organomegaly, no tenderness, no guarding or rigidity, COPPER PLATE LITHOGRAPHER- AOOx2, moving all extremities, no focal deficit noted. Medical - PN: Obj Da - Labs CBC & Chem 7: 05/25/16 03:50 05/25/16 03:50 Labs: Abnormal Lab Results 05/25/16 05/25/16 05/24/16 03:50 03:50 04:00 WBC 3.6 L RBC 4.29 L 4.37 L Hgb 10.2 L 9.8 L Hct 31.3 L 31.4 L MCV 73.1 L 71.8 L MCH 23.7 L 22.5 L RDW 31.3 H 31.7 H Plt Count 88 L 93 L Lymph % (Auto) 12.8 L 14.0 L [place] % (Auto) 9.1 H 12.2 H Lymph # 0.6 L 0.5 L Creatinine 1.7 H Alkaline Phosphatase 37 L Lactate Dehydrogenase 324 H Urine Sperm 05/24/16 05/23/16 04:00 16:43 WBC RBC Hgb Hct MCV MCH RDW Plt Count Lymph % (Auto) [place] % (Auto) Lymph # Creatinine 1.7 H Alkaline Phosphatase 37 L Lactate Dehydrogenase Urine Sperm Present A Meds: Medications Acetaminophen (Tylenol) 650 mg PO Q6HP PRN PRN Reason: PAIN/FEVER > 101 Albuterol/Ipratropium (Duoneb) 3 ml NEB Q6HRT [facility] Last Admin: 05/25/16 13:22 Dose: 3 ml Bisacodyl (Dulcolax) 10 mg PO DAILYP PRN PRN Reason: Constipation Carvedilol (Coreg) 12.5 mg PO BIDCC [facility] Last Admin: 05/25/16 07:59 Dose: 12.5 mg Clindamycin HCl (Cleocin) 300 mg PO TID [facility] Last Admin: 05/25/16 14:14 Dose: 300 mg Daptomycin (Cubicin) 500 mg IV Q24H [facility] Last Admin: 05/25/16 14:14 Dose: 500 mg Dextrose (Dextrose 50%) 0 ml IV UD PRN PRN Reason: Hypoglycemia Diagnostic Test (Pha) (Accu-Chek) 1 each FS ACHS [facility] Last Admin: 05/25/16 12:11 Dose: 1 each Digoxin (Lanoxin) 125 mcg PO DAILY@1400 [facility] Last Admin: 05/25/16 14:13 Dose: 125 mcg Docusate Sodium (Colace) 100 mg PO BID [facility] Last Admin: 05/25/16 07:59 Dose: 100 mg Donepezil HCl (Aricept) 10 mg PO HS [facility] Last Admin: 05/24/16 20:35 Dose: 10 mg Famotidine (Pepcid) 20 mg IV HS [facility] Last Admin: 05/24/16 20:34 Dose: 20 mg Heparin Sodium (Porcine) (Heparin Flush) 2 ml IV Q12 [facility] Last Admin: 05/25/16 12:11 Dose: Not Given Hydromorphone HCl (Dilaudid) 2 mg PO Q4-6HP PRN PRN Reason: Pain Last Admin: 05/24/16 22:39 Dose: 2 mg Insulin Human Lispro (Humalog) 0 unit SQ [facility] PRN Reason: Protocol Last Admin: 05/25/16 14:09 Dose: 3 unit Levothyroxine Sodium (Synthroid) 75 mcg PO QAMAC [facility] Last Admin: 05/25/16 07:24 Dose: 75 mcg Naloxone HCl (Narcan) 0.1 mg IV Q2MIN PRN PRN Reason: Opiate Reversal Ondansetron HCl (Zofran) 4 mg IV Q4HP PRN PRN Reason: Nausea And Vomiting Oxybutynin Chloride (Ditropan Xl) 10 mg PO DAILY [facility] Last Admin: 05/25/16 07:58 Dose: 10 mg Simvastatin (Zocor) 40 mg PO HS [facility] Last Admin: 05/24/16 20:35 Dose: 40 mg Sodium Chloride (Saline Flush) 10 ml IV UD PRN PRN Reason: FLUSH Last Admin: 05/25/16 14:14 Dose: 10 ml Tamsulosin HCl (Flomax) 0.4 mg PO HS [facility] Last Admin: 05/24/16 20:35 Dose: 0.4 mg Vitamin D (Vitamin D3) 2,000 unit PO DAILY [facility] Last Admin: 05/25/16 07:57 Dose: 2,000 unit Medical - PN: A/P - Time Spent With Patient Total time spent is greater than 50% in coordination of care (as documented) at patient's floor/unit and/or counseling patient: (1) Diabetes mellitus Status: Acute Current Visit: Yes (2) Hypertension Status: Acute Current Visit: Yes (3) COPD (chronic obstructive pulmonary disease) Status: Acute Current Visit: Yes (4) Atrial fibrillation Status: Acute Current Visit: Yes (5) CVA (cerebral vascular accident) Status: Acute Current Visit: Yes (6) Renal failure Status: Acute Current Visit: Yes (7) Hypoglycemia Status: Acute Current Visit: Yes (8) Carotid stenosis, right Status: Acute Current Visit: Yes - Narrative A/P Narrative: Glucose levels stable, continue to monitor d/c to snf in AM on prandin 0.5mg AC no need for insulin continue IV fluids for renal failure. carotid dopplers reviewed, may have significant stenosis in right ICA, follow up as outpatient with pcp / possibly Dr quinn. IV antibiotics for wound SDH Stable clnically Anticipate D/c in AM to SNF Medical - PN: Qual - Stroke Symptom Onset Unknown: No - VTE Deep Vein Thrombosis/Pulmonary Embolism Present on Admission: No
[2016-05-25] MEDS ORDERED: REPAGLINIDE 0.5 MG TABLET PO SCH (17:30)
--- NOTE | 2016-05-25 17:33 | General Surgery Progress Note ---
Subjective Patient reports: other (Wound Care dressing of leftiewed with Suki RN and an Nighat wound care nurse RN) Narrative: Note initiated : 05/25/16 at 5:27 pm Service Date, if different from initiated Date: [] Patient: Ryan Nunes 86 y/o M admitted on 05/23/16 for Hypoglycemia, Increased Frequency of Falls. Chief Complaint: [] Objective Temp Pulse Resp BP Pulse Ox 98.1 F 70 18 170/75 98 05/25/16 16:00 05/25/16 16:00 05/25/16 16:00 05/25/16 16:00 05/25/16 16:00 Afebrile vital signs are stable. I reviewed the patient's clinical progress with Dr. Celis, hospitalist physician and patient's caregiver was present at the time of examination. Patient's left foot dressings were taken down. Resolving soft tissue edema and cellulitis. Extirpated nail bed sites are clean. The black discoloration and eschar at the tips of toes demarcate gradually. To continue present wound care management. This patient is not capable of taking care of himself. I agree with placement in a rehabilitation facility. If discharged from the hospital, he shouw up with the wound care clinic in 1 week. - Additional Data Intake & Output - Last 24 hours: Intake & Output 05/23/16 05/24/16 05/25/16 05/26/16 05:59 05:59 05:59 05:59 Intake Total 840 / 840 1420 / 1420 200 / 200 Output Total 3627 / 3627 3010 / 3010 850 / 850 Balance -2787 / -2787 -1590 / -1590 -650 / -650 Weight 197 lb 6.4 oz 192 lb 6.4 oz - Labs 05/25/16 03:50 05/25/16 03:50 Diabetes panel 05/25/16 Range/Units 03:50 Sodium 135 (133-145) mmol/L Potassium 4.6 (3.3-5.1) mmol/L Chloride 98 (96-108) mmol/L Carbon Dioxide 23 (22-30) mmol/L BUN 17 (8-23) mg/dl Creatinine 1.7 H (0.7-1.2) mg/dl Glucose 94 (70-105) mg/dL Calcium 9.4 (8.6-10.4) mg/dl AST 35 (0-37) U/l ALT 20 (0-40) U/l Alkaline Phosphatase 37 L (39-117) U/L Total Protein 5.9 (5.9-8.4) gm/dL Albumin 3.2 (3.2-5.2) gm/dL Triglycerides 79 (<150) mg/dl Calcium panel 05/25/16 Range/Units 03:50 Calcium 9.4 (8.6-10.4) mg/dl Phosphorus 3.2 (2.7-4.5) mg/dL Albumin 3.2 (3.2-5.2) gm/dL Pituitary panel 05/25/16 Range/Units 03:50 Sodium 135 (133-145) mmol/L Potassium 4.6 (3.3-5.1) mmol/L Chloride 98 (96-108) mmol/L Carbon Dioxide 23 (22-30) mmol/L BUN 17 (8-23) mg/dl Creatinine 1.7 H (0.7-1.2) mg/dl Glucose 94 (70-105) mg/dL Calcium 9.4 (8.6-10.4) mg/dl Adrenal panel 05/25/16 Range/Units 03:50 Sodium 135 (133-145) mmol/L Potassium 4.6 (3.3-5.1) mmol/L Chloride 98 (96-108) mmol/L Carbon Dioxide 23 (22-30) mmol/L BUN 17 (8-23) mg/dl Creatinine 1.7 H (0.7-1.2) mg/dl Glucose 94 (70-105) mg/dL Calcium 9.4 (8.6-10.4) mg/dl Total Bilirubin 0.7 (0.0-1.0) mg/dL AST 35 (0-37) U/l ALT 20 (0-40) U/l Alkaline Phosphatase 37 L (39-117) U/L Total Protein 5.9 (5.9-8.4) gm/dL Albumin 3.2 (3.2-5.2) gm/dL Medical - PN: A/P - Time Spent With Patient Total time spent is greater than 50% in coordination of care (as documented) at patient's floor/unit and/or counseling patient: Satisfactory progress on the wound care point of view.. Continue present management. 15 - 24 minutes (1) Open wound of left foot Status: Acute Current Visit: Yes
[2016-05-25] MEDS: DONEPEZIL 10 MG TABLET PO SCH (22:46)
[2016-05-25] MEDS: TAMSULOSIN 0.4 MG CAPSULE PO SCH (22:47)
[2016-05-25] MEDS: SIMVASTATIN 40 MG TABLET PO SCH (22:47)
[2016-05-25] MEDS: FAMOTIDINE/PF 20 MG/2 ML VIAL IV SCH (22:47)
[2016-05-25] MEDS: HYDROmorphone 2 MG TABLET PO PRN (22:48)
[2016-05-26] MEDS: IPRATROPIUM/ALBUTEROL 3 ML AMPUL.NEB NEB SCH ×4 (00:51→19:41)
[2016-05-26] MEDS: INSULIN LISPRO 1 UNIT/0.01 ML UNIT SQ SCH ×4 (06:47→22:22)
[2016-05-26] MEDS: LEVOTHYROXINE 75 MCG TABLET PO SCH (07:36)
--- NOTE | 2016-05-26 07:46 | General Surgery Progress Note ---
Subjective Patient reports: no new complaints, other (Patient seen with Lida FLOYD. Wound care reviewed with Nhi FLOYD IP wound care nurse.) Narrative: Note initiated : 05/26/16 at 7:44 am Service Date, if different from initiated Date: [] Patient: Ryan Nunes 86 y/o M admitted on 05/23/16 for Hypoglycemia, Increased Frequency of Falls. Chief Complaint: [] Objective Temp Pulse Resp BP Pulse Ox 98.2 F 66 14 158/67 96 05/26/16 04:00 05/26/16 04:00 05/26/16 04:00 05/26/16 04:00 05/26/16 04:00 AVSS. No over nite events. Awaits transfer to SNF today. ARSEN No interval changes. L/E Left foot : resolving inflammatory changes. Demarcating clean blace eschar at toe nail beds. - Additional Data Intake & Output - Last 24 hours: Intake & Output 05/24/16 05/25/16 05/26/16 05/27/16 05:59 05:59 05:59 05:59 Intake Total 840 / 840 1420 / 1420 375 / 375 Output Total 3627 / 3627 3010 / 3010 1675 / 1675 Balance -2787 / -2787 -1590 / -1590 -1300 / -1300 Weight 197 lb 6.4 oz 192 lb 6.4 oz 194 lb 6.4 oz - Labs 05/25/16 03:50 05/25/16 03:50 Medical - PN: A/P - Time Spent With Patient Total time spent is greater than 50% in coordination of care (as documented) at patient's floor/unit and/or counseling patient: Stable. OK for d/c or transfer. Continue ongoing wound care. If d/c today, F/U at wound center in ONE week. less than 15 minutes (1) Open wound of left foot Status: Acute Current Visit: Yes
[2016-05-26] MEDS: DOCUSATE SODIUM 100 MG CAPSULE PO SCH ×2 (08:22→20:43)
[2016-05-26] MEDS: CARVEDILOL 12.5 MG TABLET PO SCH ×2 (08:22→17:17)
[2016-05-26] MEDS: OXYBUTYNIN CHLORIDE 5 MG TAB.XL.24H PO SCH (08:22)
[2016-05-26] MEDS: CLINDAMYCIN 150 MG CAPSULE PO SCH ×3 (08:22→20:42)
[2016-05-26] MEDS: VITAMIN D3 1,000 UNIT TABLET PO SCH (08:23)
[2016-05-26] MEDS: HYDROmorphone 2 MG TABLET PO PRN ×2 (11:24→20:45)
--- NOTE | 2016-05-26 13:53 | Internal Med Progress Note ---
Medical - PN: Subj Patient information: Note initiated : 05/26/16 at 1:48 pm Service Date, if different from initiated Date: [] Patient: Ryan Nunes 86 y/o M admitted on 05/23/16 for Hypoglycemia, Increased Frequency of Falls. Chief Complaint: [] Interval history: The patient seen examined no acute events overnight the patient glucose good, no hypoglycemic episodes continue wound care as per wound care management, IV antibiotics as per wound care Pertinent ROS: Denies headache, dizziness Denies chest pain, palpitations Denies cough or shortness of breath Denies abdominal pain, nausea or vomiting. - Constitutional Vitals: Vital Signs Temp Pulse Resp BP Pulse Ox 98.4 F 80 13 145/64 97 05/26/16 11:26 05/26/16 11:26 05/26/16 11:26 05/26/16 11:26 05/26/16 11:26 Period Temp Pulse Resp BP Sys/Francis Pulse Ox Last 24 Hr 98.1 F-98.4 F 60-80 12-18 145-170/53-79 94-98 Intake and Output 05/25/16 05/26/16 05/26/16 21:59 05:59 13:59 Intake Total 200 / 200 175 / 175 Output Total 250 / 250 825 / 825 650 / 650 Balance -50 / -50 -650 / -650 -650 / -650 Weight 194 lb 6.4 oz 194 lb 6.4 oz Patient Weight 05/27/16 05:59 Weight 194 lb 6.4 oz Intake & Output: Intake & Output 05/25/16 05/26/16 05/26/16 21:59 05:59 13:59 Intake Total 200 / 200 175 / 175 Output Total 250 / 250 825 / 825 650 / 650 Balance -50 / -50 -650 / -650 -650 / -650 Weight 194 lb 6.4 oz 194 lb 6.4 oz Intake: Oral 200 / 200 175 / 175 Output: Urine Catheter Amount 250 / 250 825 / 825 650 / 650 Other: # Bowel Movements 1 Exam: Constitutional; Afebrile, cooperative, alert, not in distress. Eyes- No icterus, No periorbital swelling Ears- Ext ear normal, hearing normal to conversation. Neck- Midline trachea, supple Respiratory system: Air Entry equal on both sides, No crackles or wheezing, no rhonchi. CVS- Rate normal rhythm irregular, S1,S2 heard, no gallop, no rub. Abdomen- Soft nontender abdomen, no organomegaly, no tenderness, no guarding or rigidity, DOCTOR'S ASSISTANT- AOOx2, moving all extremities, no focal deficit noted. Medical - PN: Obj Da - Labs CBC & Chem 7: 05/25/16 03:50 05/25/16 03:50 Labs: Abnormal Lab Results 05/25/16 05/25/16 05/24/16 03:50 03:50 04:00 WBC 3.6 L RBC 4.29 L 4.37 L Hgb 10.2 L 9.8 L Hct 31.3 L 31.4 L MCV 73.1 L 71.8 L MCH 23.7 L 22.5 L RDW 31.3 H 31.7 H Plt Count 88 L 93 L Lymph % (Auto) 12.8 L 14.0 L [place] % (Auto) 9.1 H 12.2 H Lymph # 0.6 L 0.5 L Creatinine 1.7 H Alkaline Phosphatase 37 L Lactate Dehydrogenase 324 H Urine Sperm 05/24/16 05/23/16 04:00 16:43 WBC RBC Hgb Hct MCV MCH RDW Plt Count Lymph % (Auto) [place] % (Auto) Lymph # Creatinine 1.7 H Alkaline Phosphatase 37 L Lactate Dehydrogenase Urine Sperm Present A Meds: Medications Acetaminophen (Tylenol) 650 mg PO Q6HP PRN PRN Reason: PAIN/FEVER > 101 Albuterol/Ipratropium (Duoneb) 3 ml NEB Q6HRT [facility] Last Admin: 05/26/16 13:47 Dose: 3 ml Bisacodyl (Dulcolax) 10 mg PO DAILYP PRN PRN Reason: Constipation Carvedilol (Coreg) 12.5 mg PO BIDCC [facility] Last Admin: 05/26/16 08:22 Dose: 12.5 mg Clindamycin HCl (Cleocin) 300 mg PO TID [facility] Last Admin: 05/26/16 08:22 Dose: 300 mg Daptomycin (Cubicin) 500 mg IV Q24H [facility] Last Admin: 05/25/16 14:14 Dose: 500 mg Dextrose (Dextrose 50%) 0 ml IV UD PRN PRN Reason: Hypoglycemia Diagnostic Test (Pha) (Accu-Chek) 1 each FS ACHS [facility] Last Admin: 05/26/16 11:24 Dose: 1 each Digoxin (Lanoxin) 125 mcg PO DAILY@1400 [facility] Last Admin: 05/25/16 14:13 Dose: 125 mcg Docusate Sodium (Colace) 100 mg PO BID [facility] Last Admin: 05/26/16 08:22 Dose: 100 mg Donepezil HCl (Aricept) 10 mg PO HS [facility] Last Admin: 05/25/16 22:46 Dose: 10 mg Famotidine (Pepcid) 20 mg IV HS [facility] Last Admin: 05/25/16 22:47 Dose: 20 mg Heparin Sodium (Porcine) (Heparin Flush) 2 ml IV Q12 [facility] Last Admin: 05/26/16 08:23 Dose: 2 ml Hydromorphone HCl (Dilaudid) 2 mg PO Q4-6HP PRN PRN Reason: Pain Last Admin: 05/26/16 11:24 Dose: 2 mg Insulin Human Lispro (Humalog) 0 unit SQ [facility] PRN Reason: Protocol Last Admin: 05/26/16 11:27 Dose: 3 unit Levothyroxine Sodium (Synthroid) 75 mcg PO QAMAC [facility] Last Admin: 05/26/16 07:36 Dose: 75 mcg Naloxone HCl (Narcan) 0.1 mg IV Q2MIN PRN PRN Reason: Opiate Reversal Ondansetron HCl (Zofran) 4 mg IV Q4HP PRN PRN Reason: Nausea And Vomiting Oxybutynin Chloride (Ditropan Xl) 10 mg PO DAILY [facility] Last Admin: 05/26/16 08:22 Dose: 10 mg Simvastatin (Zocor) 40 mg PO HS [facility] Last Admin: 05/25/16 22:47 Dose: 40 mg Sodium Chloride (Saline Flush) 10 ml IV UD PRN PRN Reason: FLUSH Last Admin: 05/25/16 14:14 Dose: 10 ml Tamsulosin HCl (Flomax) 0.4 mg PO [facility] Last Admin: 05/25/16 22:47 Dose: 0.4 mg Vitamin D (Vitamin D3) 2,000 unit PO DAILY [facility] Last Admin: 05/26/16 08:23 Dose: 2,000 unit Medical - PN: A/P - Time Spent With Patient Total time spent is greater than 50% in coordination of care (as documented) at patient's floor/unit and/or counseling patient: (1) Diabetes mellitus Status: Acute Current Visit: Yes (2) Hypertension Status: Acute Current Visit: Yes (3) COPD (chronic obstructive pulmonary disease) Status: Acute Current Visit: Yes (4) Atrial fibrillation Status: Acute Current Visit: Yes (5) Renal failure Status: Acute Current Visit: Yes (6) Hypoglycemia Status: Acute Current Visit: Yes (7) Carotid stenosis, right Status: Acute Current Visit: Yes - Narrative A/P Narrative: Patient continues to do well Glucose stable, hold Oral DM medications. has post prandial hyperglycemia, will need low dose prandin 0.5mg tid AC meals Continue IV daptomycin, clindamycin as per wound care clinic. DVT hep sq Medical - PN: Qual - Stroke Symptom Onset Unknown: No - VTE Deep Vein Thrombosis/Pulmonary Embolism Present on Admission: No
[2016-05-26] MEDS: DIGOXIN 125 MCG TABLET PO SCH (15:12)
[2016-05-26] MEDS: 0.9 % SODIUM CHLORIDE 10 ML SYRINGE IV PRN (15:12)
[2016-05-26] MEDS: DAPTOmycin 500 MG VIAL IV SCH (15:12)
[2016-05-26] MEDS: SIMVASTATIN 40 MG TABLET PO SCH (20:43)
[2016-05-26] MEDS: DONEPEZIL 10 MG TABLET PO SCH (20:43)
[2016-05-26] MEDS: FAMOTIDINE/PF 20 MG/2 ML VIAL IV SCH (20:43)
[2016-05-26] MEDS: TAMSULOSIN 0.4 MG CAPSULE PO SCH (20:43)
[2016-05-26] MEDS ORDERED: MAGNESIUM HYDROXIDE 30 ML ORAL.SUSP PO PRN (21:11)
[2016-05-26] MEDS ORDERED: BISACODYL 10 MG SUPP.RECT PR PRN (21:11)
[2016-05-27] MEDS: IPRATROPIUM/ALBUTEROL 3 ML AMPUL.NEB NEB SCH ×4 (02:20→19:39)
[2016-05-27] MEDS: LEVOTHYROXINE 75 MCG TABLET PO SCH (07:15)
[2016-05-27] MEDS: CARVEDILOL 12.5 MG TABLET PO SCH ×2 (07:16→16:48)
[2016-05-27] MEDS: INSULIN LISPRO 1 UNIT/0.01 ML UNIT SQ SCH ×4 (07:18→20:43)
[2016-05-27] MEDS: HYDROmorphone 2 MG TABLET PO PRN ×2 (07:23→20:31)
[2016-05-27] MEDS: ACETAMINOPHEN 325 MG TABLET PO PRN (07:24)
[2016-05-27] MEDS: OXYBUTYNIN CHLORIDE 5 MG TAB.XL.24H PO SCH (08:45)
[2016-05-27] MEDS: DOCUSATE SODIUM 100 MG CAPSULE PO SCH ×2 (08:45→20:30)
[2016-05-27] MEDS: VITAMIN D3 1,000 UNIT TABLET PO SCH (08:46)
[2016-05-27] MEDS: CLINDAMYCIN 150 MG CAPSULE PO SCH ×3 (08:46→20:30)
[2016-05-27] MEDS: DAPTOmycin 500 MG VIAL IV SCH (14:19)
[2016-05-27] MEDS: DIGOXIN 125 MCG TABLET PO SCH (14:19)
--- NOTE | 2016-05-27 14:21 | Internal Med Progress Note ---
Medical - PN: Subj Patient information: Note initiated : 05/27/16 at 2:17 pm Service Date, if different from initiated Date: [] Patient: Ryan Nunes 86 y/o M admitted on 05/23/16 for Hypoglycemia, Increased Frequency of Falls. Chief Complaint: [] Interval history: 05/23-Mr. Nunes is a 86 year old male who was brought in for increased frequency of falls. The patient has h/o DM, on insulin lantus and sitaglipitin. The patient was noted to have low blood glucose values on examination 36 as per verbal report. The patient was given d50- with improvement in his numbers. The patient has been in the ER overnight and his blood glucose values have remained stable. He is tolerating po well. The patient during his fall also hit his head and hip, Head CT showed possible sub dural hematoma, no neuro bed was available in the night and a repeat CT done after 8-10 hrs showed likely sub acute sub dural hematoma. The patient CT also showed multiple evolving CVA, the patient clinically did not have any new focal deficit. The patient has h/o afib, but not on any anticoagulation. MRI of the head along with mra head was obtained, offical read pending but no acute findings noted. The patient has a left leg wound, which is being treated by the wound care clinic, patient is on daptomycin and clindamycin He has a picc in place. clinically no e/o systemic infection at this time. he admits to have missed a couple of meals, but does not give a reason why. The patient is otherwise a poor historian. 05/27- ongoing wound care by health care law specialist. patient clinically improving. improved blood sugar control. On physical therapy. remains high risk fall on fall precautions. On antibiotic coverage. clinically improving overall. Start Prandin 0.5 mg 3 times a day with meals. creatinine 1.7 at baseline. - Constitutional Vitals: Vital Signs Temp Pulse Resp BP Pulse Ox 97.3 F L 63 14 165/73 97 05/27/16 12:00 05/27/16 13:51 05/27/16 13:51 05/27/16 12:00 05/27/16 13:50 Period Temp Pulse Resp BP Sys/Francis Pulse Ox Last 24 Hr 97.3 F-98.8 F 54-84 12-16 126-174/50-73 94-99 Intake and Output 05/27/16 05/27/16 05/27/16 05:59 13:59 21:59 Intake Total 340 / 340 640 / 640 Output Total 600 / 600 Balance -260 / -260 640 / 640 Intake & Output: Intake & Output 05/27/16 05/27/16 05/27/16 05:59 13:59 21:59 Intake Total 340 / 340 640 / 640 Output Total 600 / 600 Balance -260 / -260 640 / 640 Intake: Oral 340 / 340 640 / 640 Output: Urine Catheter Amount 600 / 600 Other: Meal vegetables Breakfast Percent of Meal Consumed 100% # Bowel Movements 1 Medical - PN: Obj Da - Labs CBC & Chem 7: 05/25/16 03:50 05/25/16 03:50 Labs: Abnormal Lab Results 05/25/16 05/25/16 03:50 03:50 RBC 4.29 L Hgb 10.2 L Hct 31.3 L MCV 73.1 L MCH 23.7 L RDW 31.3 H Plt Count 88 L Lymph % (Auto) 12.8 L Milam % (Auto) 9.1 H Lymph # 0.6 L Creatinine 1.7 H Alkaline Phosphatase 37 L Lactate Dehydrogenase 324 H Meds: Medications Acetaminophen (Tylenol) 650 mg PO Q6HP PRN PRN Reason: PAIN/FEVER > 101 Last Admin: 05/27/16 07:24 Dose: 650 mg Albuterol/Ipratropium (Duoneb) 3 ml NEB Q6HRT [facility] Last Admin: 05/27/16 13:46 Dose: 3 ml Bisacodyl (Dulcolax) 10 mg PO DAILYP PRN PRN Reason: Constipation Last Admin: 05/26/16 21:52 Dose: 10 mg Bisacodyl (Dulcolax) 10 mg TX Q2-3DAYS PRN PRN Reason: Constipation Carvedilol (Coreg) 12.5 mg PO BIDCC [facility] Last Admin: 05/27/16 07:16 Dose: 12.5 mg Clindamycin HCl (Cleocin) 300 mg PO TID [facility] Last Admin: 05/27/16 08:46 Dose: 300 mg Daptomycin (Cubicin) 500 mg IV Q24H [facility] Last Admin: 05/26/16 15:12 Dose: 500 mg Dextrose (Dextrose 50%) 0 ml IV UD PRN PRN Reason: Hypoglycemia Diagnostic Test (Pha) (Accu-Chek) 1 each FS ACHS [facility] Last Admin: 05/27/16 11:05 Dose: 1 each Digoxin (Lanoxin) 125 mcg PO DAILY@1400 [facility] Last Admin: 05/26/16 15:12 Dose: 125 mcg Docusate Sodium (Colace) 100 mg PO BID [facility] Last Admin: 05/27/16 08:45 Dose: 100 mg Donepezil HCl (Aricept) 10 mg PO HS [facility] Last Admin: 05/26/16 20:43 Dose: 10 mg Famotidine (Pepcid) 20 mg IV HS [facility] Last Admin: 05/26/16 20:43 Dose: 20 mg Heparin Sodium (Porcine) (Heparin Flush) 2 ml IV Q12 [facility] Last Admin: 05/27/16 08:45 Dose: 2 ml Hydromorphone HCl (Dilaudid) 2 mg PO Q4-6HP PRN PRN Reason: Pain Last Admin: 05/27/16 07:23 Dose: 2 mg Insulin Human Lispro (Humalog) 0 unit SQ [facility] PRN Reason: Protocol Last Admin: 05/27/16 11:08 Dose: Not Given Levothyroxine Sodium (Synthroid) 75 mcg PO QAMAC [facility] Last Admin: 05/27/16 07:15 Dose: 75 mcg Magnesium Hydroxide (Milk Of Magnesia) 30 ml PO DAILYP PRN PRN Reason: Constipation Last Admin: 05/26/16 21:52 Dose: 30 ml Naloxone HCl (Narcan) 0.1 mg IV Q2MIN PRN PRN Reason: Opiate Reversal Ondansetron HCl (Zofran) 4 mg IV Q4HP PRN PRN Reason: Nausea And Vomiting Oxybutynin Chloride (Ditropan Xl) 10 mg PO DAILY [facility] Last Admin: 05/27/16 08:45 Dose: 10 mg Simvastatin (Zocor) 40 mg PO [facility] Last Admin: 05/26/16 20:43 Dose: 40 mg Sodium Chloride (Saline Flush) 10 ml IV UD PRN PRN Reason: FLUSH Last Admin: 05/26/16 15:12 Dose: 10 ml Tamsulosin HCl (Flomax) 0.4 mg PO [facility] Last Admin: 05/26/16 20:43 Dose: 0.4 mg Vitamin D (Vitamin D3) 2,000 unit PO DAILY [facility] Last Admin: 05/27/16 08:46 Dose: 2,000 unit Medical - PN: A/P - Time Spent With Patient Total time spent is greater than 50% in coordination of care (as documented) at patient's floor/unit and/or counseling patient: 15 - 24 minutes (1) Open wound of left foot Status: Acute Assessment and plan: * left foot cellulitis clinically improving on antibiotic coverage. Managed per wound care physician Dr. Barnett. issues managed by hospitalist service * Recurrent falls-aggressive physical therapy * DM type II with labile control. Basal insulin discontinued and started on Prandin. * A. fib on digoxin/Coreg * Hypothyroidism thyroxine * GERD on PPI * Dementia and donepezil * hyperlipidemia on statin * BPH on tamsulosin Plan * possible discharge swing bed status in 24 hours Current Visit: Yes Medical - PN: Qual - Stroke Symptom Onset Unknown: No - VTE Deep Vein Thrombosis/Pulmonary Embolism Present on Admission: No
[2016-05-27] MEDS: REPAGLINIDE 1 MG TABLET PO SCH (16:48)
[2016-05-27] MEDS: TAMSULOSIN 0.4 MG CAPSULE PO SCH (20:30)
[2016-05-27] MEDS: DONEPEZIL 10 MG TABLET PO SCH (20:30)
[2016-05-27] MEDS: SIMVASTATIN 40 MG TABLET PO SCH (20:30)
[2016-05-27] MEDS: 0.9 % SODIUM CHLORIDE 10 ML SYRINGE IV PRN (20:32)
[2016-05-27] MEDS: FAMOTIDINE/PF 20 MG/2 ML VIAL IV SCH (20:32)
[2016-05-28] MEDS: IPRATROPIUM/ALBUTEROL 3 ML AMPUL.NEB NEB SCH ×2 (00:21→07:37)
[2016-05-28] MEDS: ACETAMINOPHEN 325 MG TABLET PO PRN (00:25)
[2016-05-28] MEDS: LEVOTHYROXINE 75 MCG TABLET PO SCH (07:25)
[2016-05-28] MEDS: REPAGLINIDE 1 MG TABLET PO SCH (07:25)
[2016-05-28] MEDS: INSULIN LISPRO 1 UNIT/0.01 ML UNIT SQ SCH (07:31)
[2016-05-28] MEDS: CLINDAMYCIN 150 MG CAPSULE PO SCH (08:35)
[2016-05-28] MEDS: OXYBUTYNIN CHLORIDE 5 MG TAB.XL.24H PO SCH (08:35)
[2016-05-28] MEDS: VITAMIN D3 1,000 UNIT TABLET PO SCH (08:35)
[2016-05-28] MEDS: DOCUSATE SODIUM 100 MG CAPSULE PO SCH (08:36)
[2016-05-28] MEDS: CARVEDILOL 12.5 MG TABLET PO SCH (08:36)
[2016-05-28] MEDS: HYDROmorphone 2 MG TABLET PO PRN (08:37)
--- NOTE | 2016-05-28 10:47 | Discharge Summary ---
Medical - DS: Prov Patient information: Note initiated : 05/28/16 at 10:45 am Service Date, if different from initiated Date: [] Patient: Ryan Nunes 86 y/o M admitted on 05/23/16 for Hypoglycemia, Increased Frequency of Falls. Chief Complaint: [] Date of admission: 05/23/16 12:35 Discharge date: 05/28/16 Primary care physician: [f_Reg Prim Care Provider] Consults: 05/24/16 12:19 Consult to Physician [CONS] Routine Comment: Consulting Provider: Rohan Barnett Reason For Exam: Physician to Consult 05/25/16 08:28 Consult to Physician [CONS] Routine Comment: Consulting Provider: [facility] Reason For Exam: Physician to Consult Medical - DS: Meds - Discharge Medications Active and Home Medications: Home Medications Carvedilol [Coreg] 12.5 mg PO BIDCC 04/15/16 [History Confirmed 05/23/16 Last Taken 05/19/16 08:00] Clindamycin [Cleocin] 300 mg PO TID #60 capsule 04/15/16 [Rx Confirmed 05/23/16 Last Taken 05/19/16 08:00] Digoxin [Lanoxin] 125 mcg PO DAILY 04/15/16 [History Confirmed 05/23/16 Last Taken 05/19/16 08:00] Donepezil [Aricept] 10 mg PO HS 04/15/16 [History Confirmed 05/23/16 Last Taken 05/18/16 21:00] Furosemide [Lasix] 40 mg PO BID #30 tablet 04/15/16 [Rx Confirmed 05/23/16 Last Taken 05/19/16 08:00] Levothyroxine [Synthroid] 75 mcg PO DAILY 04/15/16 [History Confirmed 05/23/16 Last Taken 05/19/16 07:00] Niacin [Niacor] 500 mg PO HS 04/15/16 [History Confirmed 05/23/16 Last Taken 21:00] Omeprazole [Prilosec] 20 mg PO DAILY 04/15/16 [History Confirmed 05/23/16 Last Taken 05/19/16 08:00] Oxybutynin Chloride [Oxybutynin Chloride ER] 10 mg PO DAILY 04/15/16 [History Confirmed 05/23/16 Last Taken 05/19/16 08:00] Pravastatin [Pravachol] 80 mg PO HS 04/15/16 [History Confirmed 05/23/16 Last Taken 05/18/16 21:00] sitaGLIPtin [Januvia] 50 mg PO DAILY 04/15/16 [History Confirmed 05/23/16 Last Taken 05/19/16 08:00] Albuterol Sulfate [Ventolin] 2.5 mg NEB DAILY 05/14/16 [History Confirmed Last Taken Unknown] Cholecalciferol (Vitamin D3) [Vitamin D3] 2,000 unit PO DAILY 05/14/16 [History Confirmed 05/23/16 Last Taken 05/19/16 08:00] Clobetasol Propionate/Emoll [Clobetasol Emollient 0.05% Crm] 15 gm TP DAILY 12/20 [History Confirmed 05/23/16 Last Taken 05/18/16 21:00] Docusate Sodium [Colace] 100 mg PO BID 05/14/16 [History Confirmed 05/23/16 Last Taken 05/19/16 08:00] HYDROmorphone HCL [Dilaudid] 2 mg PO Q4-6HP PRN 05/14/16 [History Confirmed Last Taken 05/17/16 08:00] Polyethylene Glycol 3350 17 gm PO QDP PRN 05/14/16 [History Confirmed 05/23/16 Last Taken 05/18/16 08:00] DAPTOmycin [Cubicin] 500 mg IV Q24H #0 vial 05/28/16 [Rx Last Taken Unknown] Repaglinide [Prandin] 0.5 mg PO TIDAC tablet 05/28/16 [Rx Last Taken Unknown] Tamsulosin [Flomax] 0.4 mg PO HS capsule 05/28/16 [Rx Last Taken Unknown] Medical - DS: Hosp Hospital course: DISCHARGE DIAGNOSIS * left foot cellulitis clinically improving on antibiotic coverage along with aggressive wound management per Dr. Barnett Issues managed by hospitalist service * Recurrent falls-managed with aggressive physical therapy * DM type II with labile control. Basal insulin discontinued and started on Prandin. * A. fib on digoxin/Coreg * Hypothyroidism thyroxine * GERD on PPI * Dementia and donepezil * hyperlipidemia on statin * BPH on tamsulosin BRIEF HOSPITAL COURSE 05/23-Mr. Nunes is a 86 year old male who was brought in for increased frequency of falls. The patient has h/o DM, on insulin lantus and sitaglipitin. The patient was noted to have low blood glucose values on examination 36 as per verbal report. The patient was given d50- with improvement in his numbers. The patient has been in the ER overnight and his blood glucose values have remained stable. He is tolerating po well. The patient during his fall also hit his head and hip, Head CT showed possible sub dural hematoma, no neuro bed was available in the night and a repeat CT done after 8-10 hrs showed likely sub acute sub dural hematoma. The patient CT also showed multiple evolving CVA, the patient clinically did not have any new focal deficit. The patient has h/o afib, but not on any anticoagulation. MRI of the head along with mra head was obtained, offical read pending but no acute findings noted. The patient has a left leg wound, which is being treated by the wound care clinic, patient is on daptomycin and clindamycin He has a picc in place. clinically no e/o systemic infection at this time. he admits to have missed a couple of meals, but does not give a reason why. The patient is otherwise a poor historian. 05/27- ongoing wound care by instrument repair specialist. patient clinically improving. improved blood sugar control. On physical therapy. remains high risk fall on fall precautions. On antibiotic coverage. clinically improving overall. Start Prandin 0.5 mg 3 times a day with meals. creatinine 1.7 at baseline. 05/28- patient greatly improving with continued wound care. On clindamycin/ daptomycin as per wound care physician. Transferring to swing bed status for continued wound care and IV antibiotics. No overnight fever chills nausea vomiting. Discharge diagnosis: Foot cellulitis - Time Spent with Patient Total time spent providing and/or coordinating discharge services: Medical - DS: Exam - Constitutional Vitals: Vital Signs Temp Pulse Pulse Resp BP Pulse Ox 05/28/16 08:54 10 L 97 05/28/16 07:59 57 L 98 05/28/16 07:56 60 16 05/28/16 07:40 97.2 F L 62 10 L 176/59 97 05/28/16 02:45 98.3 F 69 16 175/66 96 05/27/16 23:24 98.5 F 81 16 171/67 97 05/27/16 20:00 98.4 F 62 16 170/59 98 05/27/16 19:45 16 96 05/27/16 19:42 64 20 97 05/27/16 16:00 97.4 F L 71 12 111/57 94 05/27/16 13:51 63 14 05/27/16 13:50 76 16 97 05/27/16 12:00 97.3 F L 60 12 165/73 97 Intake and Output 05/27/16 05/28/16 05/28/16 21:59 05:59 13:59 Intake Total 240 / 240 200 / 200 180 / 180 Output Total 525 / 525 Balance 240 / 240 -325 / -325 180 / 180 Intake: Oral 240 / 240 200 / 200 180 / 180 Output: Urine Catheter Amount 525 / 525 Other: Meal Lunch Breakfast Percent of Meal Consumed 75% 100% Feeding Ability Independent # Bowel Movements 0 0 Weight 193 lb 9.6 oz Medical - DS: A/P - Patient/Caregiver Discharge Instructions Activity: increase activity as tolerated Diet: Consistent Carbohydrate Additional Instructions: transfer to swing bed status - Problem Maintenance (1) Open wound of left foot Status: Acute - Follow up Plan Follow up with: Pina Vizcarra MD [Primary Care Provider] - Disposition: [facility] Swing Bed Prognosis: Undetermined Rehab Potential: Undetermined I certify that the patient requires SNF services: Yes Overall status at discharge: patient is progressing back to baseline Medical - DS: Qual - VTE Deep Vein Thrombosis/Pulmonary Embolism Present on Admission: No
== END 2016-05-28 10:35 | disposition other institution (70) | DRG 638 ==
LOC: ED 22:28 → ICU 22:28 → OBSVTOIN 05-23 12:35 → ICU 05-23 12:35 → MEDSUR 05-25 14:50
PROVIDERS: ADMIT Internal Medicine; ATTEND Internal Medicine

== ENCOUNTER 2016-05-28 10:32 | Inpatient (IN) ==
[2016-05-28] MEDS ORDERED: POLYETHYLENE GLYCOL 3350 17 GM PACKET PO PRN (13:39)
[2016-05-28] MEDS: CLINDAMYCIN 150 MG CAPSULE PO SCH ×2 (14:15→22:30)
[2016-05-28] MEDS: DAPTOmycin 500 MG VIAL IV SCH (15:13)
[2016-05-28] MEDS: REPAGLINIDE 0.5 MG TABLET PO SCH (17:15)
[2016-05-28] MEDS: CARVEDILOL 12.5 MG TABLET PO SCH (17:47)
[2016-05-28] MEDS: DONEPEZIL 10 MG TABLET PO SCH (22:31)
[2016-05-28] MEDS: FUROSEMIDE 40 MG TABLET PO SCH (22:31)
[2016-05-28] MEDS: TAMSULOSIN 0.4 MG CAPSULE PO SCH (22:31)
[2016-05-28] MEDS: NIACIN 250 MG CAP.SR.12H PO SCH (22:33)
[2016-05-28] MEDS: INSULIN GLARGINE, HUMAN 1 UNIT/0.01 ML SQ SCH (22:33)
[2016-05-28] MEDS: INSULIN LISPRO 1 UNIT/0.01 ML UNIT SQ SCH (22:33)
[2016-05-29] MEDS: INSULIN LISPRO 1 UNIT/0.01 ML UNIT SQ SCH ×5 (08:45→20:26)
[2016-05-29] MEDS: PANTOPRAZOLE 40 MG TABLET PO SCH (08:56)
[2016-05-29] MEDS: LEVOTHYROXINE 75 MCG TABLET PO SCH (08:56)
[2016-05-29] MEDS: OXYBUTYNIN CHLORIDE 5 MG TAB.XL.24H PO SCH (08:56)
[2016-05-29] MEDS: CLINDAMYCIN 150 MG CAPSULE PO SCH ×3 (08:56→20:34)
[2016-05-29] MEDS: CARVEDILOL 12.5 MG TABLET PO SCH ×2 (08:56→18:45)
[2016-05-29] MEDS: FUROSEMIDE 40 MG TABLET PO SCH ×2 (08:57→20:34)
[2016-05-29] MEDS: sitaGLIPtin 50 MG TABLET PO SCH (08:57)
[2016-05-29] MEDS: DIGOXIN 125 MCG TABLET PO SCH (08:57)
[2016-05-29] MEDS: REPAGLINIDE 0.5 MG TABLET PO SCH ×3 (09:00→18:44)
[2016-05-29] MEDS: VERAPAMIL 180 MG TAB.XL.24H PO SCH (09:00)
[2016-05-29] MEDS ORDERED: ENOXAPARIN 40 MG/0.4 ML SYRINGE SQ SCH (09:00)
[2016-05-29] MEDS: CLOBETASOL EMOLLIENT 0.05% TOPICAL SCH (09:15)
[2016-05-29] MEDS: ALBUTEROL SULFATE 2.5 MG/3 ML NEBULIZER NEB SCH (09:26)
[2016-05-29] MEDS: TIOTROPIUM BROMIDE 18 MCG INHALANT INH SCH (09:26)
--- NOTE | 2016-05-29 12:15 | Internal Med History&Physical ---
Medical - H&P: [facility] Patient information: Note initiated : 05/29/16 at 12:15 pm Service Date, if different from initiated Date: [] Patient: Ryan Nunes 86 y/o M admitted on 05/28/16 for Cellulitis. Chief Complaint: [] Chief complaint: admission to swing bed status for continued IV antibiotics History of present illness: Mr. Nunes is a 86 year old male is being admitted to swing bed status for continued antibiotics. patient has had multiple falls due to hypoglycemia and developed subdural hematoma. Patient was monitored in hospital while he underwent aggressive wound care involving his left leg. Patient is on daptomycin/clindamycin. His blood sugars have been stable after basal insulin was discontinued and started on Prandin. For the time of transfer to swing bed status patient is stable. Afebrile. patient has been intermittently confusedbut appears nondistressed. patient has been receiving physical therapy. Limited review of systems performed. Negative except for ones discussed above ROS unobtainable: due to mental status (Limited review of systems performed) Medical - H&P: [facility] Medical history: Falls frequently (Acute) Hypoglycemia (Acute) Cellulitis and abscess of foot (Acute) Hydrocephalus (Acute) Iron deficiency anemia (Acute) Lymphedema (Acute) afib DM Dementia, alzhimers hld anemia copd/ emphysema Family history: reviewed and not pertinent Social history: lives in facility/ independent side. ex smoker no recreational drugs no etoh reported Functional capacity: bed bound Have you smoked in the last 12 months: No Drug use: none Alcohol use: none Medical - H&P: Meds Home Medications Medication Instructions Recorded Confirmed Type Carvedilol [Coreg] 12.5 mg PO BIDCC 04/15/16 05/28/16 History Clindamycin [Cleocin] 300 mg PO TID #60 capsule 04/15/16 05/28/16 Rx Digoxin [Lanoxin] 125 mcg PO DAILY 04/15/16 05/28/16 History Donepezil [Aricept] 10 mg PO HS 04/15/16 05/28/16 History Furosemide [Lasix] 40 mg PO BID #30 tablet 04/15/16 05/28/16 Rx Levothyroxine [Synthroid] 75 mcg PO DAILY 04/15/16 05/28/16 History Niacin [Niacor] 500 mg PO HS 04/15/16 05/28/16 History Omeprazole [Prilosec] 20 mg PO DAILY 04/15/16 05/28/16 History Oxybutynin Chloride [Oxybutynin 10 mg PO DAILY 04/15/16 05/28/16 History Chloride ER] sitaGLIPtin [Januvia] 50 mg PO DAILY 04/15/16 05/28/16 History Albuterol Sulfate [Ventolin] 2.5 mg NEB DAILY 05/14/16 05/28/16 History Cholecalciferol (Vitamin D3) 2,000 unit PO DAILY 05/14/16 05/28/16 History [Vitamin D3] Clobetasol Propionate/Emoll 15 gm TP DAILY 05/14/16 05/28/16 History [Clobetasol Emollient 0.05% Crm] Docusate Sodium [Colace] 100 mg PO Q48@0900 05/14/16 05/28/16 History HYDROmorphone HCL [Dilaudid] 2 mg PO Q4-6HP PRN 05/14/16 05/28/16 History Polyethylene Glycol 3350 17 gm PO QDP PRN 05/14/16 05/28/16 History DAPTOmycin [Cubicin] 500 mg IV Q24H #0 vial 05/28/16 05/28/16 Rx Insulin Glargine, Human [Lantus] 35 unit SQ HS 05/28/16 05/28/16 History Repaglinide [Prandin] 0.5 mg PO TIDAC tablet 05/28/16 05/28/16 Rx Tamsulosin [Flomax] 0.4 mg PO HS capsule 05/28/16 05/28/16 Rx Tiotropium Roundup [Spiriva] 18 mcg INH DAILY 05/28/16 05/28/16 History Verapamil HCl [Verapamil ER] 180 mg PO DAILY 05/28/16 05/28/16 History Warfarin [Coumadin] 2 mg PO DAILY 05/28/16 05/28/16 History Allergies Allergy/AdvReac Type Severity Reaction Status Date / Time morphine AdvReac Unknown Unknown Verified 05/14/16 07:15 Medical - H&P: Exam - Constitutional Vitals: Temp Pulse Resp BP Pulse Ox 98.0 F 72 12 133/67 97 05/29/16 07:07 05/29/16 08:00 05/29/16 08:00 05/29/16 07:07 05/29/16 07:07 General appearance: average body habitus Exam: ntimately confused nondistressed Pupils symmetric no eardischarge No lymphadenopathy S1 and S2 regular rhythm eSM grade 1 Abdomen soft Lower extremity wounds covered in dressing Confused but no agitation Nonfocal moving all 4 extremities Medical - H&P: A/P (1) Open wound of left foot Current visit: No Status: Acute * Left foot cellulitis . on antibiotics. Wound management per Dr. Barnett Issues managed by hospitalist service * Recurrent falls- ongoing physical therapy * DM type II- off basal insulin,continue Prandin. * A. fib on digoxin/Coreg * Hypothyroidism thyroxine * GERD on PPI * Dementia and donepezil * hyperlipidemia on statin * BPH on tamsulosin plan * Continue swing bed status * Antibiotic coverage * Wound management per Dr. Barnett * Pre-existing medical condition management as above Medical - H&P: Qual - VTE Deep Vein Thrombosis/Pulmonary Embolism Present on Admission: No
[2016-05-29] MEDS: DAPTOmycin 500 MG VIAL IV SCH (14:13)
[2016-05-29] MEDS: INSULIN GLARGINE, HUMAN 1 UNIT/0.01 ML SQ SCH (20:26)
[2016-05-29] MEDS: NIACIN 250 MG CAP.SR.12H PO SCH (20:34)
[2016-05-29] MEDS: DONEPEZIL 10 MG TABLET PO SCH (20:34)
[2016-05-29] MEDS: TAMSULOSIN 0.4 MG CAPSULE PO SCH (20:34)
[2016-05-30] MEDS: INSULIN LISPRO 1 UNIT/0.01 ML UNIT SQ SCH ×4 (07:44→21:15)
[2016-05-30] MEDS: PANTOPRAZOLE 40 MG TABLET PO SCH (07:48)
[2016-05-30] MEDS: LEVOTHYROXINE 75 MCG TABLET PO SCH (07:48)
[2016-05-30] MEDS: REPAGLINIDE 0.5 MG TABLET PO SCH ×3 (07:49→17:39)
[2016-05-30] MEDS: VERAPAMIL 180 MG TAB.XL.24H PO SCH (07:49)
[2016-05-30] MEDS: CARVEDILOL 12.5 MG TABLET PO SCH ×2 (07:58→17:39)
[2016-05-30] MEDS: OXYBUTYNIN CHLORIDE 5 MG TAB.XL.24H PO SCH (09:49)
[2016-05-30] MEDS: CLINDAMYCIN 150 MG CAPSULE PO SCH ×3 (09:51→20:54)
[2016-05-30] MEDS: DOCUSATE SODIUM 100 MG CAPSULE PO SCH (09:51)
[2016-05-30] MEDS: sitaGLIPtin 50 MG TABLET PO SCH (09:51)
[2016-05-30] MEDS: DIGOXIN 125 MCG TABLET PO SCH (09:51)
[2016-05-30] MEDS: FUROSEMIDE 40 MG TABLET PO SCH ×2 (09:51→20:54)
[2016-05-30] MEDS: ALBUTEROL SULFATE 2.5 MG/3 ML NEBULIZER NEB SCH (12:04)
[2016-05-30] MEDS: CLOBETASOL EMOLLIENT 0.05% TOPICAL SCH (12:04)
[2016-05-30] MEDS: TIOTROPIUM BROMIDE 18 MCG INHALANT INH SCH (12:04)
[2016-05-30] MEDS: DAPTOmycin 500 MG VIAL IV SCH (14:33)
[2016-05-30] MEDS: TAMSULOSIN 0.4 MG CAPSULE PO SCH (20:54)
[2016-05-30] MEDS: DONEPEZIL 10 MG TABLET PO SCH (20:54)
[2016-05-30] MEDS: NIACIN 250 MG CAP.SR.12H PO SCH (20:55)
[2016-05-30] MEDS: INSULIN GLARGINE, HUMAN 1 UNIT/0.01 ML SQ SCH (21:16)
[2016-05-31 06:18] LABS: Mean Cell Volume 74.3 fL (80.0-100.0); Mean Corpuscular Hemoglobin 23.1 pg (26.0-34.0); Platelet Count 129 K/mcL (140-440); RBC 4.46 M/mcL (4.50-5.90); Red Cell Distribution Width 32.3 % (11.5-14.5)
[2016-05-31 06:37] LABS: ALT/SGPT 30 U/l (0-40); Albumin 3.5 gm/dL (3.2-5.2); Albumin/Globulin Ratio 1.3 (1.0-2.3); Alkaline Phosphatase 48 U/L (39-117); Bilirubin,Direct < 0.2 mg/dL (0.0-0.3); Blood Urea Nitrogen 26 mg/dl (8-23); Gamma Glutamyl Transpeptidase 54 U/L (8-61); Magnesium 2.3 mg/dL (1.6-2.5); Phosphorous 4.7 mg/dL (2.7-4.5); Uric Acid 8.3 mg/dL (2.5-8.0)
[2016-05-31 07:45] LABS: Acanthocytes FEW (NONE SEEN); Anisocytosis 3+ (NONE SEEN); Basophils % (Manual) 1 % (0-2); Eosinophils % (Manual) 1 % (0-7); Hypochromasia 1+ (NONE SEEN); Lymphocytes % 33 % (15-49); Monocytes % (Manual) 15 % (1-9); Ovalocytes FEW (NONE SEEN); Platelet Estimate DECREASED (NORMAL); RBC Morphology ABNORMAL (NORMAL); Segmented Neutrophils % 50 % (38-78); Target Cells OCC (NONE SEEN)
[2016-05-31] MEDS: PANTOPRAZOLE 40 MG TABLET PO SCH (07:45)
[2016-05-31] MEDS: CARVEDILOL 12.5 MG TABLET PO SCH ×2 (07:45→17:39)
[2016-05-31] MEDS: LEVOTHYROXINE 75 MCG TABLET PO SCH (07:45)
[2016-05-31] MEDS: REPAGLINIDE 0.5 MG TABLET PO SCH ×3 (07:47→17:39)
[2016-05-31] MEDS: INSULIN LISPRO 1 UNIT/0.01 ML UNIT SQ SCH ×4 (07:47→20:25)
[2016-05-31] MEDS: DIGOXIN 125 MCG TABLET PO SCH (09:35)
[2016-05-31] MEDS: sitaGLIPtin 50 MG TABLET PO SCH (09:35)
[2016-05-31] MEDS: OXYBUTYNIN CHLORIDE 5 MG TAB.XL.24H PO SCH (09:36)
[2016-05-31] MEDS: FUROSEMIDE 40 MG TABLET PO SCH ×2 (09:36→20:35)
[2016-05-31] MEDS: CLINDAMYCIN 150 MG CAPSULE PO SCH ×3 (09:36→20:35)
[2016-05-31] MEDS: DOCUSATE SODIUM 100 MG CAPSULE PO SCH (09:36)
[2016-05-31] MEDS: VERAPAMIL 180 MG TAB.XL.24H PO SCH (09:37)
[2016-05-31] MEDS: CLOBETASOL EMOLLIENT 0.05% TOPICAL SCH (09:38)
[2016-05-31] MEDS: TIOTROPIUM BROMIDE 18 MCG INHALANT INH SCH (09:38)
[2016-05-31] MEDS: ALBUTEROL SULFATE 2.5 MG/3 ML NEBULIZER NEB SCH (09:38)
--- NOTE | 2016-05-31 10:46 | Internal Med Progress Note ---
Medical - PN: Subj Patient information: Note initiated : 05/31/16 at 10:44 am Service Date, if different from initiated Date: [] Patient: Ryan Nunes a 86 y/o M admitted on 05/28/16 for Cellulitis. Chief Complaint: [] Interval history: 05/29-Mr. Nunes is a 86 year old male is being admitted to swing bed status for continued antibiotics. patient has had multiple falls due to hypoglycemia and developed subdural hematoma. Patient was monitored in hospital while he underwent aggressive wound care involving his left leg. Patient is on daptomycin/clindamycin. His blood sugars have been stable after basal insulin was discontinued and started on Prandin. For the time of transfer to swing bed status patient is stable. Afebrile. patient has been intermittently confusedbut appears nondistressed. patient has been receiving physical therapy. 05/31- Patient alert and responsive. Tolerating physical therapy. Ongoing wound care and antibiotics. Left toes gangrenous with line of demarcation. wound care recommends continuingh Abx and wound dressings. Foleys catheter in place. tolerating diet. No concerns expressed by nursing staff. No overnight fever chills nausea vomiting. left lower extremity wound dressing - Constitutional Vitals: Vital Signs Temp Pulse Resp BP Pulse Ox 97.6 F 63 16 127/64 98 05/31/16 06:29 05/31/16 06:29 05/31/16 07:07 05/31/16 06:29 05/31/16 07:07 Period Temp Pulse Resp BP Sys/Francis Pulse Ox Last 24 Hr 94.5 F-97.8 F 54-65 16-16 102-127/43-64 97-99 Intake and Output 05/30/16 05/31/16 05/31/16 21:59 05:59 13:59 Intake Total 580 / 580 150 / 150 480 / 480 Output Total 350 / 350 800 / 800 200 / 200 Balance 230 / 230 -650 / -650 280 / 280 Intake & Output: Intake & Output 05/30/16 05/31/16 05/31/16 21:59 05:59 13:59 Intake Total 580 / 580 150 / 150 480 / 480 Output Total 350 / 350 800 / 800 200 / 200 Balance 230 / 230 -650 / -650 280 / 280 Intake: Oral 580 / 580 150 / 150 480 / 480 Output: Urine Catheter Amount 350 / 350 800 / 800 200 / 200 Other: Meal Dinner Breakfast Percent of Meal Consumed 100% 75% Feeding Ability Independent Independent General appearance: no acute distress Exam: intimately confused nonlabored breathing Bruising upper extremity Left lower extremity dressing in place Foleys draining clear urine Medical - PN: Obj Da - Labs CBC & Chem 7: 05/31/16 05:09 05/31/16 05:09 Labs: Abnormal Lab Results 05/31/16 05/31/16 05:09 05:09 RBC 4.46 L Hgb 10.3 L Hct 33.2 L MCV 74.3 L MCH 23.1 L RDW 32.3 H Plt Count 129 L Monocytes % (Manual) 15 H Platelet Estimate Decreased A Hypochromasia 1+ A Anisocytosis 3+ A Microcytosis 2+ A Target Cells Occ A Ovalocytes Few A Acanthocytes (Spur) Few A RBC Fragments Few A Chloride 93 L BUN 26 H Creatinine 1.7 H Glucose 64 L Uric Acid 8.3 H Phosphorus 4.7 H Meds: Medications Albuterol Sulfate (Ventolin) 2.5 mg NEB DAILY [facility] Last Admin: 05/31/16 09:38 Dose: Not Given Carvedilol (Coreg) 12.5 mg PO BIDCC [facility] Last Admin: 05/31/16 07:45 Dose: 12.5 mg Clindamycin HCl (Cleocin) 300 mg PO TID [facility] Last Admin: 05/31/16 09:36 Dose: 300 mg Daptomycin (Cubicin) 500 mg IV Q24H [facility] Last Admin: 05/30/16 14:33 Dose: 500 mg Diagnostic Test (Pha) (Accu-Chek) 1 each FS ACHS [facility] Last Admin: 05/31/16 07:47 Dose: 1 each Digoxin (Lanoxin) 125 mcg PO DAILY [facility] Last Admin: 05/31/16 09:35 Dose: 125 mcg Docusate Sodium (Colace) 100 mg PO Q48@0900 [facility] Last Admin: 05/31/16 09:36 Dose: 100 mg Donepezil HCl (Aricept) 10 mg PO [facility] Last Admin: 05/30/16 20:54 Dose: 10 mg Furosemide (Lasix) 40 mg PO BID [facility] Last Admin: 05/31/16 09:36 Dose: 40 mg Insulin Glargine (Lantus) 35 unit SQ [facility] Last Admin: 05/30/16 21:16 Dose: 35 unit Insulin Human Lispro (Humalog) 1 unit SQ [facility] PRN Reason: Protocol Last Admin: 05/31/16 07:47 Dose: Not Given Levothyroxine Sodium (Synthroid) 75 mcg PO QAMAC [facility] Last Admin: 05/31/16 07:45 Dose: 75 mcg Niacin (Niacin) 500 mg PO [facility] Last Admin: 05/30/16 20:55 Dose: 500 mg Oxybutynin Chloride (Ditropan Xl) 10 mg PO DAILY [facility] Last Admin: 05/31/16 09:36 Dose: 10 mg [facility]op[facility]) [facility] Last Admin: 05/31/16 07:45 Dose: 40 mg Clobetasol Emollient (0.05% Cream) 1 dose TOPICAL DAILY [facility] Last Admin: 05/31/16 09:38 Dose: Not Given Polyethylene Glycol (Miralax) 17 gm PO DAILYP PRN PRN Reason: Constipation Repaglinide (Prandin) 0.5 mg PO TIDAC [facility] Last Admin: 05/31/16 07:47 Dose: 0.5 mg Sitagliptin Phosphate (Januvia) 50 mg PO DAILY [facility] Last Admin: 05/31/16 09:35 Dose: 50 mg Tamsulosin HCl (Flomax) 0.4 mg PO [facility] Last Admin: 05/30/16 20:54 Dose: 0.4 mg Tiotropium [place] (Spiriva) 18 mcg INH DAILY [facility] Last Admin: 05/31/16 09:38 Dose: Not Given Verapamil HCl (Calan Sr) 180 mg PO DAILY [facility] Last Admin: 05/31/16 09:37 Dose: 180 mg Medical - PN: A/P - Time Spent With Patient Total time spent is greater than 50% in coordination of care (as documented) at patient's floor/unit and/or counseling patient: 15 - 24 minutes (1) Open wound of left foot Status: Acute Assessment and plan: * Left foot cellulitis. On daptomycin/clindamycin per wound care. Wound management ongoing per Dr. Barnett Issues managed by hospitalist service * Hypochromic Microcytic anemia with anisopiokilocytosis- MCV 74. Start IV iron infusion * Toe gangrene/PVD- wound care managing. * Recurrent falls- on fall watch. Physical therapy * DM type II- off basal insulin,continue Prandin. * A. fib on digoxin/Coreg. Rate controlled * history of chronic kidney disease- creatinine at baseline around 1.8 * Dementia continue donepezil * hyperlipidemia on statin * Hypothyroidism - thyroxine * GERD on PPI * BPH continue tamsulosin plan * IV iron * Wound management per Dr. Barnett * Pre-existing medical condition management as above Current Visit: No Medical - PN: Qual - VTE Deep Vein Thrombosis/Pulmonary Embolism Present on Admission: No
[2016-05-31] MEDS ORDERED: IRON SUCROSE COMPLEX 400 MG in 0.9 % SODIUM CHLORIDE 250 ML IV SCH (11:30)
[2016-05-31] MEDS: DAPTOmycin 500 MG VIAL IV SCH (14:14)
[2016-05-31] MEDS: DONEPEZIL 10 MG TABLET PO SCH (20:35)
[2016-05-31] MEDS: INSULIN GLARGINE, HUMAN 1 UNIT/0.01 ML SQ SCH (20:36)
[2016-05-31] MEDS: TAMSULOSIN 0.4 MG CAPSULE PO SCH (20:36)
[2016-05-31] MEDS: NIACIN 250 MG CAP.SR.12H PO SCH (20:55)
[2016-06-01] MEDS: INSULIN LISPRO 1 UNIT/0.01 ML UNIT SQ SCH ×4 (07:55→20:07)
[2016-06-01] MEDS: REPAGLINIDE 0.5 MG TABLET PO SCH ×3 (07:55→17:55)
[2016-06-01] MEDS: PANTOPRAZOLE 40 MG TABLET PO SCH (07:56)
[2016-06-01] MEDS: LEVOTHYROXINE 75 MCG TABLET PO SCH (07:56)
[2016-06-01] MEDS: DOCUSATE SODIUM 100 MG CAPSULE PO SCH (08:22)
[2016-06-01] MEDS: CARVEDILOL 12.5 MG TABLET PO SCH ×2 (08:22→17:56)
[2016-06-01] MEDS: CLINDAMYCIN 150 MG CAPSULE PO SCH ×3 (08:22→20:06)
[2016-06-01] MEDS: FUROSEMIDE 40 MG TABLET PO SCH ×2 (08:22→20:06)
[2016-06-01] MEDS: VERAPAMIL 180 MG TAB.XL.24H PO SCH (08:22)
[2016-06-01] MEDS: DIGOXIN 125 MCG TABLET PO SCH (08:23)
[2016-06-01] MEDS: sitaGLIPtin 50 MG TABLET PO SCH (08:23)
[2016-06-01] MEDS: OXYBUTYNIN CHLORIDE 5 MG TAB.XL.24H PO SCH (08:23)
[2016-06-01] MEDS: CLOBETASOL EMOLLIENT 0.05% TOPICAL SCH (08:24)
[2016-06-01] MEDS: TIOTROPIUM BROMIDE 18 MCG INHALANT INH SCH (08:25)
[2016-06-01] MEDS: ALBUTEROL SULFATE 2.5 MG/3 ML NEBULIZER NEB SCH (14:31)
[2016-06-01] MEDS: DAPTOmycin 500 MG VIAL IV SCH (14:32)
--- NOTE | 2016-06-01 15:13 | Internal Med Progress Note ---
Medical - PN: Subj Patient information: Note initiated : 06/01/16 at 3:10 pm Service Date, if different from initiated Date: [] Patient: Ryan Nunes 86 y/o M admitted on 05/28/16 for Cellulitis. Chief Complaint: [] Interval history: 05/29-Mr. Nunes is a 86 year old male is being admitted to swing bed status for continued antibiotics. patient has had multiple falls due to hypoglycemia and developed subdural hematoma. Patient was monitored in hospital while he underwent aggressive wound care involving his left leg. Patient is on daptomycin/clindamycin. His blood sugars have been stable after basal insulin was discontinued and started on Prandin. For the time of transfer to swing bed status patient is stable. Afebrile. patient has been intermittently confusedbut appears nondistressed. patient has been receiving physical therapy. 05/31- Patient alert and responsive. Tolerating physical therapy. Ongoing wound care and antibiotics. Left toes gangrenous with line of demarcation. wound care recommends continuingh Abx and wound dressings. Foleys catheter in place. tolerating diet. No concerns expressed by nursing staff. No overnight fever chills nausea vomiting. left lower extremity wound dressing 06/01- Patient seen in room with Dr Lomeli and wound nurse celso, Dressing unwrapped. Gangrenous toe, progressing since previous day. No LE pain, fowl smelling discharge. Stable hemodynamics. Pt intermittently confused. On Abx per Dr Lomeli. Wound care physician consulted IR dr Patel for LE vascular intervention in light of progressing gangrene. Started on cilostazole. Consulted Dr Babb [facility] for eval and recommndations. No f/C,pain. discussed with patient in depth about gangrene and risk of progressive infection. Patient agreeable to orthopedics consulted and possible amputation. Await interventional radiology consultation in light of severe peripheral vascular disease.continue cilostazol - Constitutional Vitals: Vital Signs Temp Pulse Resp BP Pulse Ox 98.5 F 54 L 14 158/63 97 06/01/16 08:00 06/01/16 14:40 06/01/16 14:40 06/01/16 08:00 06/01/16 08:00 Period Temp Pulse Resp BP Sys/Francis Pulse Ox Last 24 Hr 97.7 F-98.5 F 53-85 14-18 139-158/55-63 93-97 Intake and Output 06/01/16 06/01/16 06/01/16 05:59 13:59 21:59 Intake Total 120 / 120 Output Total 850 / 850 Balance -730 / -730 Intake & Output: Intake & Output 06/01/16 06/01/16 06/01/16 05:59 13:59 21:59 Intake Total 120 / 120 Output Total 850 / 850 Balance -730 / -730 Intake: Oral 120 / 120 Output: Urine Catheter Amount 850 / 850 General appearance: cooperative, no acute distress Exam: left foot multiple gangrenous toes Nonlabored breathing no lymphedema Minimal anxiety Alert Medical - PN: Obj Da - Labs CBC & Chem 7: 05/31/16 05:09 05/31/16 05:09 Labs: Abnormal Lab Results 05/31/16 05/31/16 05:09 05:09 RBC 4.46 L Hgb 10.3 L Hct 33.2 L MCV 74.3 L MCH 23.1 L RDW 32.3 H Plt Count 129 L Monocytes % (Manual) 15 H Platelet Estimate Decreased A Hypochromasia 1+ A Anisocytosis 3+ A Microcytosis 2+ A Target Cells Occ A Ovalocytes Few A Acanthocytes (Spur) Few A RBC Fragments Few A Chloride 93 L BUN 26 H Creatinine 1.7 H Glucose 64 L Uric Acid 8.3 H Phosphorus 4.7 H Meds: Medications Albuterol Sulfate (Ventolin) 2.5 mg NEB DAILY [facility] Last Admin: 06/01/16 14:31 Dose: 2.5 mg Carvedilol (Coreg) 12.5 mg PO BIDCC [facility] Last Admin: 06/01/16 08:22 Dose: 12.5 mg Clindamycin HCl (Cleocin) 300 mg PO TID [facility] Last Admin: 06/01/16 08:22 Dose: 300 mg Daptomycin (Cubicin) 500 mg IV Q24H [facility] Last Admin: 06/01/16 14:32 Dose: 500 mg Diagnostic Test (Pha) (Accu-Chek) 1 each FS ACHS [facility] Last Admin: 06/01/16 12:00 Dose: 1 each Digoxin (Lanoxin) 125 mcg PO DAILY [facility] Last Admin: 06/01/16 08:23 Dose: 125 mcg Docusate Sodium (Colace) 100 mg PO Q48@0900 [facility] Last Admin: 06/01/16 08:22 Dose: 100 mg Donepezil HCl (Aricept) 10 mg PO HS [facility] Last Admin: 05/31/16 20:35 Dose: 10 mg Furosemide (Lasix) 40 mg PO BID [facility] Last Admin: 06/01/16 08:22 Dose: 40 mg Insulin Glargine (Lantus) 35 unit SQ [facility] Last Admin: 05/31/16 20:36 Dose: 35 unit Insulin Human Lispro (Humalog) 1 unit SQ [facility] PRN Reason: Protocol Last Admin: 06/01/16 12:00 Dose: Not Given [facility]othyroxine [facility] ([facility]) [facility] Last Admin: 06/01/16 07:56 Dose: 75 mcg Niacin (Niacin) 500 mg PO [facility] Last Admin: 05/31/16 20:55 Dose: 500 mg Oxybutynin Chloride (Ditropan Xl) 10 mg PO DAILY [facility] Last Admin: 06/01/16 08:23 Dose: 10 mg Pantoprazole Sodium (Protonix) [facility] Last Admin: 06/01/16 07:56 Dose: 40 mg Clobetasol Emollient (0.05% Cream) 1 dose TOPICAL DAILY [facility] Last Admin: 06/01/16 08:24 Dose: Not Given Polyethylene Glycol (Miralax) 17 gm PO DAILYP PRN PRN Reason: Constipation Repaglinide (Prandin) 0.5 mg PO TIDAC [facility] Last Admin: 06/01/16 12:00 Dose: 0.5 mg Sitagliptin Phosphate (Januvia) 50 mg PO DAILY [facility] Last Admin: 06/01/16 08:23 Dose: 50 mg Tamsulosin HCl (Flomax) 0.4 mg PO [facility] Last Admin: 05/31/16 20:36 Dose: 0.4 mg Tiotropium [place] (Spiriva) 18 mcg INH DAILY [facility] Last Admin: 06/01/16 08:25 Dose: Not Given Verapamil HCl (Calan Sr) 180 mg PO DAILY [facility] Last Admin: 06/01/16 08:22 Dose: 180 mg Medical - PN: A/P - Time Spent With Patient Total time spent is greater than 50% in coordination of care (as documented) at patient's floor/unit and/or counseling patient: 25 - 35 minutes (1) Open wound of left foot Status: Acute Assessment and plan: * Left foot cellulitis. On daptomycin/clindamycin per wound care. Wound management ongoing per Dr. 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 Wound care managing and coordinating with interventional radiology for angioplasty. Patient started on cilostazol. Consulted orthopedics Dr. Huertafor evaluation of amputation. Discussed in depth with patient and agreeable with treatment plan. Patient may require transfer to tertiary Center Issues managed by hospitalist service * Hypochromic microcytic anemia with anisopiokilocytosis-status post IV iron infusion * Peripheral arterial disease-continue cilostazol * Recurrent falls- on fall watch. continue physical therapy * DM type II- off basal insulin,continue Prandin. * A. fib on digoxin/Coreg. Rate controlled * history of chronic kidney disease- creatinine at baseline around 1.8 * Dementia continue donepezil. mentation at baseline * hyperlipidemia on statin * Hypothyroidism - thyroxine * GERD on PPI * BPH continue tamsulosin plan * tax services specialist Dr. Barnett coordinating with interventional radiology at [facility] for angioplasty in light of gangrene from severe peripheral artery disease * Orthopedics consult for amputation evaluation * antibiotics per Dr. Barnett * Pre-existing medical condition management as above Current Visit: No Medical - PN: Qual - VTE Deep Vein Thrombosis/Pulmonary Embolism Present on Admission: No
[2016-06-01] MEDS ORDERED: HYDROcodone/APAP 5/325MG TABLET PO PRN (15:54)
[2016-06-01] MEDS: CILOSTAZOL 100 MG TABLET PO SCH (17:55)
--- NOTE | 2016-06-01 19:57 | General Surgery Consult Note ---
History of Present Illness Patient information: Note initiated : 06/01/16 at 7:57 pm Service Date, if different from initiated Date: [] Patient: Ryan Nunes 86 y/o M admitted on 05/28/16 for Cellulitis. Chief Complaint: [] Requesting physician: Anatoly Amador Medications and Allergies Home Medications Medication Instructions Recorded Confirmed Type Carvedilol [Coreg] 12.5 mg PO BIDCC 04/15/16 05/28/16 History Clindamycin [Cleocin] 300 mg PO TID #60 capsule 04/15/16 05/28/16 Rx Digoxin [Lanoxin] 125 mcg PO DAILY 04/15/16 05/28/16 History Donepezil [Aricept] 10 mg PO HS 04/15/16 05/28/16 History Furosemide [Lasix] 40 mg PO BID #30 tablet 04/15/16 05/28/16 Rx Levothyroxine [Synthroid] 75 mcg PO DAILY 04/15/16 05/28/16 History Niacin [Niacor] 500 mg PO HS 04/15/16 05/28/16 History Omeprazole [Prilosec] 20 mg PO DAILY 04/15/16 05/28/16 History Oxybutynin Chloride [Oxybutynin 10 mg PO DAILY 04/15/16 05/28/16 History Chloride ER] sitaGLIPtin [Januvia] 50 mg PO DAILY 04/15/16 05/28/16 History Albuterol Sulfate [Ventolin] 2.5 mg NEB DAILY 05/14/16 05/28/16 History Cholecalciferol (Vitamin D3) 2,000 unit PO DAILY 05/14/16 05/28/16 History [Vitamin D3] Clobetasol Propionate/Emoll 15 gm TP DAILY 05/14/16 05/28/16 History [Clobetasol Emollient 0.05% Crm] Docusate Sodium [Colace] 100 mg PO Q48@0900 05/14/16 05/28/16 History HYDROmorphone HCL [Dilaudid] 2 mg PO Q4-6HP PRN 05/14/16 05/28/16 History Polyethylene Glycol 3350 17 gm PO QDP PRN 05/14/16 05/28/16 History DAPTOmycin [Cubicin] 500 mg IV Q24H #0 vial 05/28/16 05/28/16 Rx Insulin Glargine, Human [Lantus] 35 unit SQ HS 05/28/16 05/28/16 History Repaglinide [Prandin] 0.5 mg PO TIDAC tablet 05/28/16 05/28/16 Rx Tamsulosin [Flomax] 0.4 mg PO HS capsule 05/28/16 05/28/16 Rx Tiotropium [place] [Spiriva] 18 mcg INH DAILY 05/28/16 05/28/16 History Verapamil HCl [Verapamil ER] 180 mg PO DAILY 05/28/16 05/28/16 History Warfarin [Coumadin] 2 mg PO DAILY 05/28/16 05/28/16 History Allergies Allergy/AdvReac Type Severity Reaction Status Date / Time morphine AdvReac Unknown Unknown Verified 05/14/16 07:15 Exam Temp Pulse Resp BP Pulse Ox 98.5 F 71 12 144/47 94 06/01/16 19:39 06/01/16 19:39 06/01/16 19:39 06/01/16 19:39 06/01/16 19:39 - General physical appearance well developed, well nourished, no distress, no pain - Eyes PERRL, normal ocular movement - ENT normal pinna, normal nares, normal mucosa, no congestion - Head Head exam IM: Present: atraumatic, normal inspection, normocephalic - Neck no masses, no bruits, trachea midline, no lymphadectomy, no venous distension - Cardiovascular Cardiovascular exam IM: Present: normal rate and rhythm - Respiratory normal expansion, normal respiratory effort, clear to auscultation - Abdomen Abdomen: Present: soft, non tender, bowel sounds - Integumentary Present: other (DRY gangrene right foot toes. Dependent rubor and Elevation pallor. Cellulitis for foot improving) - Neurologic Present: other (Detailed examination not done., Cranial nerves normal. NO Focal lateralizing deficits. ) Results - Labs 05/31/16 05:09 05/31/16 05:09 All other labs normal. Assessment and Plan (1) Cellulitis Onychogryposis of toe nails, infected right 3 rd toe , Cellulitis Right foot showing resolution on IV antibiotics. Dry gangrene of toes demarcating well. PATIENT NEEDS VASCULAR INTERVENTION for angiography and appropriate intervention. I HAVE SPOKEN WITH DR. MIL JERRY. Discussed this case with him at length. He is going to expedite this at [facility] in [place], [place]. Subsequently I have also discussed this with Dr. Amador Hospitalist. SPOKE AT LENGTH with Clarita, Patient's CG and have updated her of all developments and plan of care. FOLLOWING PATIENT. Status: Acute Priority: Medium Qualifiers: Site of cellulitis of extremity: lower extremity Laterality: right
[2016-06-01] MEDS: TAMSULOSIN 0.4 MG CAPSULE PO SCH (20:06)
[2016-06-01] MEDS: DONEPEZIL 10 MG TABLET PO SCH (20:06)
[2016-06-01] MEDS: NIACIN 250 MG CAP.SR.12H PO SCH (20:07)
[2016-06-01] MEDS: INSULIN GLARGINE, HUMAN 1 UNIT/0.01 ML SQ SCH (21:15)
--- NOTE | 2016-06-02 06:48 | Orthopedic Consult Note ---
History of Present Illness - HPI Patient information: Note initiated : 06/02/16 at 6:46 am Service Date, if different from initiated Date: [] Patient: Ryan Nunes 86 y/o M admitted on 05/28/16 for Cellulitis. Chief Complaint: [] Consult date: 06/02/16 Requesting physician: Anatoly Amador Consult reason: joint pain, fracture, low back pain, back pain, neck pain, other (gangrenous toes1-4 left) Review of Systems All systems PM: reviewed and no additional remarkable complaints except as stated (none) Past History Past medical history: per Dr Amador Past surgical history: per Dr Amador Past family history: per Dr Amador Past social history: per Dr Amador Medications and Allergies Home Medications Medication Instructions Recorded Confirmed Type Carvedilol [Coreg] 12.5 mg PO BIDCC 04/15/16 05/28/16 History Clindamycin [Cleocin] 300 mg PO TID #60 capsule 04/15/16 05/28/16 Rx Digoxin [Lanoxin] 125 mcg PO DAILY 04/15/16 05/28/16 History Donepezil [Aricept] 10 mg PO HS 04/15/16 05/28/16 History Furosemide [Lasix] 40 mg PO BID #30 tablet 04/15/16 05/28/16 Rx Levothyroxine [Synthroid] 75 mcg PO DAILY 04/15/16 05/28/16 History Niacin [Niacor] 500 mg PO HS 04/15/16 05/28/16 History Omeprazole [Prilosec] 20 mg PO DAILY 04/15/16 05/28/16 History Oxybutynin Chloride [Oxybutynin 10 mg PO DAILY 04/15/16 05/28/16 History Chloride ER] sitaGLIPtin [Januvia] 50 mg PO DAILY 04/15/16 05/28/16 History Albuterol Sulfate [Ventolin] 2.5 mg NEB DAILY 05/14/16 05/28/16 History Cholecalciferol (Vitamin D3) 2,000 unit PO DAILY 05/14/16 05/28/16 History [Vitamin D3] Clobetasol Propionate/Emoll 15 gm TP DAILY 05/14/16 05/28/16 History [Clobetasol Emollient 0.05% Crm] Docusate Sodium [Colace] 100 mg PO Q48@0900 05/14/16 05/28/16 History HYDROmorphone HCL [Dilaudid] 2 mg PO Q4-6HP PRN 05/14/16 05/28/16 History Polyethylene Glycol 3350 17 gm PO QDP PRN 05/14/16 05/28/16 History DAPTOmycin [Cubicin] 500 mg IV Q24H #0 vial 05/28/16 05/28/16 Rx Insulin Glargine, Human [Lantus] 35 unit SQ HS 05/28/16 05/28/16 History Repaglinide [Prandin] 0.5 mg PO TIDAC tablet 05/28/16 05/28/16 Rx Tamsulosin [Flomax] 0.4 mg PO HS capsule 05/28/16 05/28/16 Rx Tiotropium [place] [Spiriva] 18 mcg INH DAILY 05/28/16 05/28/16 History Verapamil HCl [Verapamil ER] 180 mg PO DAILY 05/28/16 05/28/16 History Warfarin [Coumadin] 2 mg PO DAILY 05/28/16 05/28/16 History Allergies Allergy/AdvReac Type Severity Reaction Status Date / Time morphine AdvReac Unknown Unknown Verified 05/14/16 07:15 Physical Examination - Ankle & Foot left Foot appearance: other (gangrenoous toes) Foot swelling: dorsal Tenderness with palpation: none Ankle pain worse with weight bearing: No Ankle pain relieved by non-weight bearing: No Foot pain worse with weight bearing: No Ankle alignment: normal Foot alignment: normal Hammer toe location: none Claw toe location: none ROM: dorsiflexion: 0 degrees ROM: plantarflexion: 40 degrees ROM: eversion: 10 degrees ROM: first MTP joint flexion: 10 degrees ROM: first MTP joint extension: normal Crepitus with motion: No Strength: toe extension: 5/5 Strength: toe flexion: 5/5 Tests: achilles rupture tests: negative Assessment and Plan (1) Cellulitis and abscess of foot Gangrene 1-4 left, no gas. Cellulitis well controlled. Discussed transmet amp with pt after [id number] for tomorrow) Status: Acute Priority: Medium
[2016-06-02] MEDS: LEVOTHYROXINE 75 MCG TABLET PO SCH (07:46)
[2016-06-02] MEDS: CILOSTAZOL 100 MG TABLET PO SCH ×2 (07:46→17:07)
[2016-06-02] MEDS: PANTOPRAZOLE 40 MG TABLET PO SCH (07:46)
[2016-06-02] MEDS: INSULIN LISPRO 1 UNIT/0.01 ML UNIT SQ SCH ×4 (07:47→21:00)
[2016-06-02] MEDS: REPAGLINIDE 0.5 MG TABLET PO SCH ×3 (07:47→17:07)
[2016-06-02] MEDS: OXYBUTYNIN CHLORIDE 5 MG TAB.XL.24H PO SCH (09:04)
[2016-06-02] MEDS: CLINDAMYCIN 150 MG CAPSULE PO SCH ×3 (09:05→21:00)
[2016-06-02] MEDS: CARVEDILOL 12.5 MG TABLET PO SCH ×2 (09:05→17:07)
[2016-06-02] MEDS: sitaGLIPtin 50 MG TABLET PO SCH (09:05)
[2016-06-02] MEDS: DIGOXIN 125 MCG TABLET PO SCH (09:06)
[2016-06-02] MEDS: VERAPAMIL 180 MG TAB.XL.24H PO SCH (09:07)
[2016-06-02] MEDS: FUROSEMIDE 40 MG TABLET PO SCH ×2 (09:07→21:00)
[2016-06-02] MEDS: TIOTROPIUM BROMIDE 18 MCG INHALANT INH SCH (09:08)
[2016-06-02] MEDS: CLOBETASOL EMOLLIENT 0.05% TOPICAL SCH (09:08)
[2016-06-02] MEDS: ALBUTEROL SULFATE 2.5 MG/3 ML NEBULIZER NEB SCH (09:29)
--- NOTE | 2016-06-02 11:25 | General Surgery Progress Note ---
Subjective Patient reports: other (No new interval changes. Spoke with nursing staff. Patient seen. ) Narrative: Note initiated : 06/02/16 at 11:23 am Service Date, if different from initiated Date: [] Patient: Ryan Nunes 86 y/o M admitted on 05/28/16 for Cellulitis. Chief Complaint: [] Objective Temp Pulse Resp BP Pulse Ox 97.9 F 66 12 117/54 97 06/02/16 10:25 06/02/16 10:25 06/02/16 10:25 06/02/16 10:25 06/02/16 10:25 AVSS. No changes clinical situation. Patient seen by Dr. Huerta, [facility] [place]. Waiting for input from Dr. Patel, Angiography / intervention. - Additional Data Intake & Output - Last 24 hours: Intake & Output 05/31/16 06/01/16 06/02/16 06/03/16 05:59 05:59 05:59 05:59 Intake Total 730 / 730 800 / 800 940 / 940 270 / 270 Output Total 1974 / 1974 1500 / 1500 852 / 852 Balance -1245 / -1245 -700 / -700 88 / 88 270 / 270 Weight 186 lb 12.8 oz - Labs 05/31/16 05:09 05/31/16 05:09 Medical - PN: A/P - Time Spent With Patient Total time spent is greater than 50% in coordination of care (as documented) at patient's floor/unit and/or counseling patient: less than 15 minutes (Await Angiogrphy / Intervention. Continue current treatment. Spoke with Hospitalist Dr. Amador.) (1) Cellulitis Status: Acute Current Visit: Yes
[2016-06-02] MEDS: DAPTOmycin 500 MG VIAL IV SCH (14:02)
--- NOTE | 2016-06-02 15:51 | Internal Med Progress Note ---
Medical - PN: Subj Patient information: Note initiated : 06/02/16 at 3:48 pm Service Date, if different from initiated Date: [] Patient: Ryan Nunes 86 y/o M admitted on 05/28/16 for Cellulitis. Chief Complaint: [] Interval history: 05/29-Mr. Nunes is a 86 year old male is being admitted to swing bed status for continued antibiotics. patient has had multiple falls due to hypoglycemia and developed subdural hematoma. Patient was monitored in hospital while he underwent aggressive wound care involving his left leg. Patient is on daptomycin/clindamycin. His blood sugars have been stable after basal insulin was discontinued and started on Prandin. For the time of transfer to swing bed status patient is stable. Afebrile. patient has been intermittently confusedbut appears nondistressed. patient has been receiving physical therapy. 05/31- Patient alert and responsive. Tolerating physical therapy. Ongoing wound care and antibiotics. Left toes gangrenous with line of demarcation. wound care recommends continuingh Abx and wound dressings. Foleys catheter in place. tolerating diet. No concerns expressed by nursing staff. No overnight fever chills nausea vomiting. left lower extremity wound dressing 06/01- Patient seen in room with Dr Lomeli and wound nurse celso, Dressing unwrapped. Gangrenous toe, progressing since previous day. No LE pain, fowl smelling discharge. Stable hemodynamics. Pt intermittently confused. On Abx per Dr Lomeli. Wound care physician consulted IR dr Patel for LE vascular intervention in light of progressing gangrene. Started on cilostazole. Consulted Dr Babb Orthopedics for eval and recommndations. No f/C,pain. discussed with patient in depth about gangrene and risk of progressive infection. Patient agreeable to orthopedics consulted and possible amputation. Await interventional radiology consultation in light of severe peripheral vascular disease.continue cilostazol 06/02- Patient scheduled for IR angioplasty tomorrow. Ortho consulted and recommnds transmet amputation post revasc procedure. Wound care on board. On Abx per physician dr Barnett. medical issues stable and managed by Hospitalist service on meds as below. No overnight F,C,Pain or SOB. - Constitutional Vitals: Vital Signs Temp Pulse Resp BP Pulse Ox 97.9 F 66 12 117/54 97 06/02/16 10:25 06/02/16 10:25 06/02/16 10:25 06/02/16 10:25 06/02/16 10:25 Period Temp Pulse Resp BP Sys/Francis Pulse Ox Last 24 Hr 97.2 F-98.5 F 57-77 12-14 117-144/47-56 94-98 Intake and Output 06/02/16 06/02/16 06/02/16 05:59 13:59 21:59 Intake Total 700 / 700 270 / 270 550 / 550 Output Total 252 / 252 201 / 201 Balance 448 / 448 69 / 69 550 / 550 Weight 186 lb 12.8 oz Patient Weight 06/03/16 05:59 Weight 186 lb 12.8 oz Intake & Output: Intake & Output 06/02/16 06/02/16 06/02/16 05:59 13:59 21:59 Intake Total 700 / 700 270 / 270 550 / 550 Output Total 252 / 252 201 / 201 Balance 448 / 448 69 / 69 550 / 550 Weight 186 lb 12.8 oz Intake: Oral 700 / 700 270 / 270 550 / 550 Output: Void Amount 250 / 250 200 / 200 # of times incontinent of 2 / 2 / urine Other: Meal Lunch Percent of Meal Consumed 75% Feeding Ability Independent # Voids 1 1 General appearance: cooperative Exam: Alert Non labored breathing, NT/ND abd No lymphedema Medical - PN: Obj Da - Labs CBC & Chem 7: 05/31/16 05:09 05/31/16 05:09 Labs: Abnormal Lab Results 05/31/16 05/31/16 05:09 05:09 RBC 4.46 L Hgb 10.3 L Hct 33.2 L MCV 74.3 L MCH 23.1 L RDW 32.3 H Plt Count 129 L Monocytes % (Manual) 15 H Platelet Estimate Decreased A Hypochromasia 1+ A Anisocytosis 3+ A Microcytosis 2+ A Target Cells Occ A Ovalocytes Few A Acanthocytes (Spur) Few A RBC Fragments Few A Chloride 93 L BUN 26 H Creatinine 1.7 H Glucose 64 L Uric Acid 8.3 H Phosphorus 4.7 H Meds: Medications Acetaminophen/Hydrocodone Bitart ([place] 5/325mg) 1 - 2 tab PO Q4-6HP PRN PRN Reason: Pain Albuterol Sulfate (Ventolin) 2.5 mg NEB DAILY [facility] Last Admin: 06/02/16 09:29 Dose: Not Given Carvedilol (Coreg) 12.5 mg PO BIDCC [facility] Last Admin: 06/02/16 09:05 Dose: 12.5 mg Cilostazol (Pletal) 100 mg PO BIDAC [facility] Last Admin: 06/02/16 07:46 Dose: 100 mg Clindamycin HCl (Cleocin) 300 mg PO TID [facility] Last Admin: 06/02/16 14:50 Dose: 300 mg Daptomycin (Cubicin) 500 mg IV Q24H [facility] Last Admin: 06/02/16 14:02 Dose: 500 mg Diagnostic Test (Pha) (Accu-Chek) 1 each FS ACHS [facility] Last Admin: 06/02/16 11:52 Dose: 1 each Digoxin (Lanoxin) 125 mcg PO DAILY [facility] Last Admin: 06/02/16 09:06 Dose: 125 mcg Docusate Sodium (Colace) 100 mg PO Q48@0900 [facility] Last Admin: 06/01/16 08:22 Dose: 100 mg Donepezil HCl (Aricept) 10 mg PO HS [facility] Last Admin: 06/01/16 20:06 Dose: 10 mg Furosemide (Lasix) 40 mg PO BID [facility] Last Admin: 06/02/16 09:07 Dose: 40 mg Insulin Glargine (Lantus) 35 unit SQ HS [facility] Last Admin: 06/01/16 21:15 Dose: 35 unit Insulin Human Lispro (Humalog) 0 unit SQ [facility] PRN Reason: Protocol Levothyroxine Sodium (Synthroid) 75 mcg PO QAMAC [facility] Last Admin: 06/02/16 07:46 Dose: 75 mcg Niacin (Niacin) 500 mg PO HS [facility] Last Admin: 06/01/16 20:07 Dose: 500 mg Oxybutynin Chloride (Ditropan Xl) 10 mg PO DAILY [facility] Last Admin: 06/02/16 09:04 Dose: 10 mg Pantoprazole Sodium (Protonix) 40 mg PO QAMAC [facility] Last Admin: 06/02/16 07:46 Dose: 40 mg Clobetasol Emollient (0.05% Cream) 1 dose TOPICAL DAILY [facility] Last Admin: 06/02/16 09:08 Dose: Not Given Polyethylene Glycol (Miralax) 17 gm PO DAILYP PRN PRN Reason: Constipation Repaglinide (Prandin) 0.5 mg PO TIDAC [facility] Last Admin: 06/02/16 11:51 Dose: Not Given Sitagliptin Phosphate (Januvia) 50 mg PO DAILY [facility] Last Admin: 06/02/16 09:05 Dose: 50 mg Tamsulosin HCl (Flomax) 0.4 mg PO HS [facility] Last Admin: 06/01/16 20:06 Dose: 0.4 mg Tiotropium [place] (Spiriva) 18 mcg INH DAILY [facility] Last Admin: 06/02/16 09:08 Dose: Not Given Verapamil HCl (Calan Sr) 180 mg PO DAILY [facility] Last Admin: 06/02/16 09:07 Dose: 180 mg Medical - PN: A/P - Time Spent With Patient Total time spent is greater than 50% in coordination of care (as documented) at patient's floor/unit and/or counseling patient: 15 - 24 minutes (1) Open wound of left foot Status: Acute Assessment and plan: * Left foot cellulitis. Wound care and Abx- dapto/clindamycin per Dr Guevara * 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 Wound care managing -> interventional radiology for angioplasty in AM. On cilostazol. Ortho on board. Patient may require transfer to tertiary Center post op ofr continued WC and rehab Issues managed by hospitalist service * Hypochromic microcytic anemia with anisopiokilocytosis-IV iron infusion * Peripheral arterial disease-continue cilostazol * Recurrent falls- on fall watch. continue physical therapy * DM type II- off basal insulin,continue Prandin. * A. fib on digoxin/Coreg. Rate controlled * history of chronic kidney disease- creatinine at baseline around 1.8 * Dementia continue donepezil. mentation at baseline * hyperlipidemia on statin * Hypothyroidism - thyroxine * GERD on PPI * BPH continue tamsulosin plan * wound care and Abx per Dr Barnett * IR angioplasty/revasciularization at [facility] in AM. * IV Iron * Med issues management per hospitalist as above * Pre-existing medical condition management as above Current Visit: No Medical - PN: Qual - VTE Deep Vein Thrombosis/Pulmonary Embolism Present on Admission: No
[2016-06-02] MEDS: TAMSULOSIN 0.4 MG CAPSULE PO SCH (21:00)
[2016-06-02] MEDS: DONEPEZIL 10 MG TABLET PO SCH (21:00)
[2016-06-02] MEDS: INSULIN GLARGINE, HUMAN 1 UNIT/0.01 ML SQ SCH (21:01)
[2016-06-02] MEDS: NIACIN 250 MG CAP.SR.12H PO SCH (21:03)
[2016-06-03] MEDS ORDERED: IRON SUCROSE COMPLEX 400 MG in 0.9 % SODIUM CHLORIDE 250 ML IV SCH (06:30)
[2016-06-03] MEDS: INSULIN LISPRO 1 UNIT/0.01 ML UNIT SQ SCH ×2 (06:46→12:54)
[2016-06-03] MEDS: LEVOTHYROXINE 75 MCG TABLET PO SCH (06:47)
[2016-06-03] MEDS: PANTOPRAZOLE 40 MG TABLET PO SCH (06:47)
[2016-06-03] MEDS: CARVEDILOL 12.5 MG TABLET PO SCH (06:57)
[2016-06-03 06:58] LABS: Mean Cell Volume 74.8 fL (80.0-100.0); Mean Corpuscular HGB Conc 30.9 g/dL (31.0-36.0); Mean Corpuscular Hemoglobin 23.1 pg (26.0-34.0); Platelet Count 147 K/mcL (140-440); RBC 4.65 M/mcL (4.50-5.90); Red Cell Distribution Width 32.7 % (11.5-14.5)
[2016-06-03] MEDS: CILOSTAZOL 100 MG TABLET PO SCH (06:58)
[2016-06-03] MEDS: REPAGLINIDE 1 MG TABLET PO SCH ×2 (06:58→12:54)
[2016-06-03] MEDS: VERAPAMIL 180 MG TAB.XL.24H PO SCH (07:30)
[2016-06-03] MEDS: FUROSEMIDE 40 MG TABLET PO SCH (07:31)
[2016-06-03] MEDS: CLINDAMYCIN 150 MG CAPSULE PO SCH (07:31)
[2016-06-03] MEDS: OXYBUTYNIN CHLORIDE 5 MG TAB.XL.24H PO SCH (07:31)
[2016-06-03] MEDS: DOCUSATE SODIUM 100 MG CAPSULE PO SCH (07:32)
[2016-06-03] MEDS: sitaGLIPtin 50 MG TABLET PO SCH (07:32)
[2016-06-03] MEDS: CLOBETASOL EMOLLIENT 0.05% TOPICAL SCH (07:32)
[2016-06-03] MEDS: DIGOXIN 125 MCG TABLET PO SCH (07:32)
[2016-06-03 07:40] LABS: ALT/SGPT 33 U/l (0-40); Albumin 3.8 gm/dL (3.2-5.2); Albumin/Globulin Ratio 1.3 (1.0-2.3); Alkaline Phosphatase 58 U/L (39-117); Bilirubin,Direct < 0.2 mg/dL (0.0-0.3); Blood Urea Nitrogen 28 mg/dl (8-23); Gamma Glutamyl Transpeptidase 54 U/L (8-61); Magnesium 2.3 mg/dL (1.6-2.5); Phosphorous 3.6 mg/dL (2.7-4.5); Uric Acid 8.7 mg/dL (2.5-8.0)
[2016-06-03] MEDS: TIOTROPIUM BROMIDE 18 MCG INHALANT INH SCH (07:42)
[2016-06-03] MEDS: ALBUTEROL SULFATE 2.5 MG/3 ML NEBULIZER NEB SCH (09:00)
[2016-06-03 09:03] LABS: Anisocytosis 3+ (NONE SEEN); Band Neutrophils % 3 % (0-10); Eosinophils % (Manual) 1 % (0-7); Hypochromasia 1+ (NONE SEEN); Lymphocytes % 11 % (15-49); Monocytes % (Manual) 11 % (1-9); Ovalocytes 1+ (NONE SEEN); Platelet Estimate NORMAL (NORMAL); RBC Morphology ABNORM (NORMAL); Segmented Neutrophils % 72 % (38-78)
--- NOTE | 2016-06-03 11:25 | Internal Med Progress Note ---
Medical - PN: Subj Patient information: Note initiated : 06/03/16 at 11:25 am Service Date, if different from initiated Date: [] Patient: Ryan Nunes a 86 y/o M admitted on 05/28/16 for Cellulitis. Chief Complaint: [] Interval history: 05/29-Mr. Nunes is a 86 year old male is being admitted to swing bed status for continued antibiotics. patient has had multiple falls due to hypoglycemia and developed subdural hematoma. Patient was monitored in hospital while he underwent aggressive wound care involving his left leg. Patient is on daptomycin/clindamycin. His blood sugars have been stable after basal insulin was discontinued and started on Prandin. For the time of transfer to swing bed status patient is stable. Afebrile. patient has been intermittently confusedbut appears nondistressed. patient has been receiving physical therapy. 05/31- Patient alert and responsive. Tolerating physical therapy. Ongoing wound care and antibiotics. Left toes gangrenous with line of demarcation. wound care recommends continuingh Abx and wound dressings. Foleys catheter in place. tolerating diet. No concerns expressed by nursing staff. No overnight fever chills nausea vomiting. left lower extremity wound dressing 06/01- Patient seen in room with Dr Lomeli and wound nurse celso, Dressing unwrapped. Gangrenous toe, progressing since previous day. No LE pain, fowl smelling discharge. Stable hemodynamics. Pt intermittently confused. On Abx per Dr Lomeli. Wound care physician consulted IR dr Patel for LE vascular intervention in light of progressing gangrene. Started on cilostazole. Consulted Dr Babb Orthopedics for eval and recommndations. No f/C,pain. discussed with patient in depth about gangrene and risk of progressive infection. Patient agreeable to orthopedics consulted and possible amputation. Await interventional radiology consultation in light of severe peripheral vascular disease.continue cilostazol 06/02- Patient scheduled for IR angioplasty tomorrow. Ortho consulted and recommnds transmet amputation post revasc procedure. Wound care on board. On Abx per physician dr Barnett. medical issues stable and managed by Hospitalist service on meds as below. No overnight F,C,Pain or SOB. Case discussed with patient's POA step [id number] Clarita on telephone after I received a call from [employer] Domenica STEVENS. patient's POA was concerned about her not having much knowledge above plan of care. I explained Annetta Bledsoe patient's current clinical status including of interval development of dry gangrenous toes which has progressed with a clear demarcation and is likely secondary to underlying peripheral vascular vascular disease. As per Dr. Barnett wound care physician patient's lower extremity cellulitis and wound have considerably improve however given his severe PVD/PAD patient will require vascular studies and possible angioplasty/intervention directed towards revascularization. Dr. Barnett coordinated with interventional radiologist Dr. Patle and patient is scheduled for vaascular procedure at [facility] in the next 24 hours. Postprocedure if adequate circulation is restored, orthopedics surgeon Dr. Huerat who has been consulted will further intervene on gangrenous toe based on response to revascularization. Patient may eventually need a transmetatarsal amputation as per orthopedics. I also informed Annetta Bledsoe POA about patient consenting to above procedures during my conversation the day prior. patient was also concerned about his gangrenous toes and expresses desire for treatment. He understands the treatment may include amputation and he is willing to proceed with necessary interventions. During our conversation he was in a clear state of mind and demonstrated a clear understanding of his disease process. Annetta Bledsoe was very appreciative of information and expressed desire to be involved in future decision making involving Ryan's goals of care. We will have further discussions after vascular procedures with patient and POA for goals of care. 06/03- patient will be transferred to inpatient status o enablevascular intervention procedures/continue wound management per and orthopedics is Dr. Huerta. In terms of subdural hematoma/hypoglycemia patient has improved. His hematoma has not progressed and his blood sugars have been at goal off basal insulin. ll other medical issues have been stable including chronic kidney disease that have been managed by hospitalist service. Await further input postprocedure from Dr. Lomeli wound care physician and Dr. Huerta orthopedics. - Constitutional Vitals: Vital Signs Temp Pulse Resp BP Pulse Ox 98.6 F 90 16 146/63 97 06/03/16 06:43 06/03/16 06:43 06/03/16 06:43 06/03/16 06:43 06/03/16 06:43 Period Temp Pulse Resp BP Sys/Francis Pulse Ox Last 24 Hr 98.6 F-98.7 F 61-90 16-16 136-146/56-63 97-97 Intake and Output 06/02/16 06/03/16 06/03/16 21:59 05:59 13:59 Intake Total 910 / 910 500 / 500 40 / 40 Output Total 153 / 153 201 / 201 Balance 910 / 910 347 / 347 -161 / -161 Intake & Output: Intake & Output 06/02/16 06/03/16 06/03/16 21:59 05:59 13:59 Intake Total 910 / 910 500 / 500 40 / 40 Output Total 153 / 153 201 / 201 Balance 910 / 910 347 / 347 -161 / -161 Intake: Oral 910 / 910 500 / 500 40 / 40 Output: Void Amount 150 / 150 200 / 200 # of times incontinent of urine Other: Meal Dinner Breakfast Percent of Meal Consumed 100% 100% Feeding Ability Independent # Voids 1 Medical - PN: Obj Da - Labs CBC & Chem 7: 06/03/16 06:10 06/03/16 06:10 Labs: Abnormal Lab Results 06/03/16 06/03/16 06:10 06:10 Hgb 10.7 L Hct 34.8 L MCV 74.8 L MCH 23.1 L MCHC 30.9 L RDW 32.7 H Lymphocytes % 11 L Monocytes % (Manual) 11 H RBC Morphology Abnorm A Hypochromasia 1+ A Anisocytosis 3+ A Microcytosis 2+ A Ovalocytes 1+ A BUN 28 H Creatinine 1.5 H Uric Acid 8.7 H Meds: Medications Acetaminophen/Hydrocodone Bitart ([place] 5/325mg) 1 - 2 tab PO Q4-6HP PRN PRN Reason: Pain Albuterol Sulfate (Ventolin) 2.5 mg NEB DAILY [facility] Last Admin: 06/03/16 09:00 Dose: Not Given Carvedilol (Coreg) 12.5 mg PO BIDCC [facility] Last Admin: 06/03/16 06:57 Dose: 12.5 mg Cilostazol (Pletal) 100 mg PO BIDAC [facility] Last Admin: 06/03/16 06:58 Dose: 100 mg Clindamycin HCl (Cleocin) 300 mg PO TID [facility] Last Admin: 06/03/16 07:31 Dose: 300 mg Daptomycin (Cubicin) 500 mg IV Q24H [facility] Last Admin: 06/02/16 14:02 Dose: 500 mg Diagnostic Test (Pha) (Accu-Chek) 1 each FS [facility] Last Admin: 06/03/16 06:45 Dose: 1 each Digoxin (Lanoxin) 125 mcg PO DAILY [facility] Last Admin: 06/03/16 07:32 Dose: 125 mcg Docusate Sodium (Colace) 100 mg PO Q48@0900 [facility] Last Admin: 06/03/16 07:32 Dose: 100 mg Donepezil HCl (Aricept) 10 mg PO [facility] Last Admin: 06/02/16 21:00 Dose: 10 mg Furosemide (Lasix) 40 mg PO BID [facility] Last Admin: 06/03/16 07:31 Dose: 40 mg Insulin Glargine (Lantus) 35 unit SQ [facility] Last Admin: 06/02/16 21:01 Dose: 35 unit Insulin Human Lispro (Humalog) 0 unit SQ [facility] PRN Reason: Protocol Last Admin: 06/03/16 06:46 Dose: Not Given Levothyroxine [facility] ([facility]throid) [facility] Last Admin: 06/03/16 06:47 Dose: 75 mcg Niacin (Niacin) 500 mg PO [facility] Last Admin: 06/02/16 21:03 Dose: 500 mg Oxybutynin Chloride (Ditropan Xl) 10 mg PO DAILY [facility] Last Admin: 06/03/16 07:31 Dose: 10 mg Pantoprazole Sodium (Protonix) [facility] Last Admin: 06/03/16 06:47 Dose: 40 mg Clobetasol Emollient (0.05% Cream) 1 dose TOPICAL DAILY [facility] Last Admin: 06/03/16 07:32 Dose: Not Given Polyethylene Glycol (Miralax) 17 gm PO DAILYP PRN PRN Reason: Constipation Repaglinide (Prandin) 0.5 mg PO TIDAC [facility] Last Admin: 06/03/16 06:58 Dose: 0.5 mg Sitagliptin Phosphate (Januvia) 50 mg PO DAILY [facility] Last Admin: 06/03/16 07:32 Dose: 50 mg Tamsulosin HCl (Flomax) 0.4 mg PO [facility] Last Admin: 06/02/16 21:00 Dose: 0.4 mg Tiotropium [place] (Spiriva) 18 mcg INH DAILY [facility] Last Admin: 06/03/16 07:42 Dose: Not Given Verapamil HCl (Calan Sr) 180 mg PO DAILY [facility] Last Admin: 06/03/16 07:30 Dose: 180 mg Medical - PN: A/P - Time Spent With Patient Total time spent is greater than 50% in coordination of care (as documented) at patient's floor/unit and/or counseling patient: 25 - 35 minutes (1) Open wound of left foot Status: Acute Assessment and plan: * Left foot cellulitis. clinically improving as per Dr. Barnett wound care physician. continuing on antibiotics- dapto/clindamycin per Dr Lomeli. 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 Wound care managing -> vascular intervention [email or web address] [email or web address] by Dr. Patel. On cilostazol. Issues managed by hospitalist service * Hypochromic microcytic anemia with anisopiokilocytosis-status post 800 mg IV iron infusion * Peripheral arterial disease-continue cilostazol * Recurrent falls- on fall watch. ongoing physical therapy. Clinically improving * DM type II- off basal insulin,continue Prandin. blood sugars at goal 100 * A. fib on digoxin/Coreg. Rate controlled * history of chronic kidney disease- creatinine at baseline around 1.6 * Dementia continue donepezil. mentation at baseline * hyperlipidemia on statin * Hypothyroidism - thyroxine * GERD on PPI * BPH continue tamsulosin plan * ransferring to inpatient o facilitate vascular intervention/wound care and orthopedics management forfoot gangrene * Continue medical management as above as per hospitalist service Current Visit: No Medical - PN: Qual - VTE Deep Vein Thrombosis/Pulmonary Embolism Present on Admission: No
== END 2016-06-03 12:13 | disposition other institution (70) | DRG 300 ==
LOC: MEDSUR 10:35
PROVIDERS: ADMIT Internal Medicine; ATTEND Internal Medicine

== ENCOUNTER 2016-06-03 12:07 | Inpatient (IN) ==
[2016-06-03] MEDS ORDERED: HYDROcodone/APAP 5/325MG TABLET PO PRN (12:50)
[2016-06-03] MEDS ORDERED: traZODone HCL 50 MG TABLET PO PRN (12:50)
[2016-06-03] MEDS ORDERED: ACETAMINOPHEN 1,000 MG/100 ML BOTTLE IV PRN (12:50)
[2016-06-03] MEDS ORDERED: ONDANSETRON 4 MG/2 ML VIAL IV PRN (12:50)
[2016-06-03] MEDS ORDERED: ACETAMINOPHEN 325 MG TABLET PO PRN (12:50)
[2016-06-03] MEDS ORDERED: MAGNESIUM SULFATE 2 GM/50 ML BAG IV PRN (12:50)
[2016-06-03] MEDS ORDERED: DEXTROSE 50% 50 ML VIAL IV PRN (12:50)
--- NOTE | 2016-06-03 13:02 | Internal Med History&Physical ---
Medical - H&P: HPI Patient information: Note initiated : 06/03/16 at 12:54 pm Service Date, if different from initiated Date: [] Patient: Ryan Nunes 86 y/o M admitted on 06/03/16 for Cellulitis. Chief Complaint: [] History of present illness: Mr. Nunes is a 86 year old male admitted with subdural hematoma/fall/ secondary to hypoglycemia. patient however had chronic lower extremity toenail fungus and had toenail removal done tablets cellulitis and was managed on antibiotics by wound care clinic. Over the last few weeks patient has had progressive gangrenous changes involving the left foot/toes and has been undergoing aggressive wound care treatment along with antibiotics as per Dr. Barnett. With concerns of severe peripheral vascular disease leading to dry gangrene Dr. Lomeli coordinated vascular intervention with Dr. Patel intervention radiologist to [place]. patient will undergo revascularization/angioplasty today. Orthopedics was also consulted for evaluation of gangrene and recommends amputation post vascular intervention. hospitalist service during this admission will continue to manage medical issues including diabetes chronic kidney disease along with atrial fibrillation , hypothyroidism/hyperlipidemia and will address any other medical needs require during hospitalization INTERVAL MEDICAL HISTORY DURING SWING BED ADMISSION BELOW 05/29-Mr. Nunes is a 86 year old male is being admitted to swing bed status for continued antibiotics. patient has had multiple falls due to hypoglycemia and developed subdural hematoma. Patient was monitored in hospital while he underwent aggressive wound care involving his left leg. Patient is on daptomycin/clindamycin. His blood sugars have been stable after basal insulin was discontinued and started on Prandin. For the time of transfer to swing bed status patient is stable. Afebrile. patient has been intermittently confusedbut appears nondistressed. patient has been receiving physical therapy. 05/31- Patient alert and responsive. Tolerating physical therapy. Ongoing wound care and antibiotics. Left toes gangrenous with line of demarcation. wound care recommends continuingh Abx and wound dressings. Foleys catheter in place. tolerating diet. No concerns expressed by nursing staff. No overnight fever chills nausea vomiting. left lower extremity wound dressing 06/01- Patient seen in room with Dr Lomeli and wound nurse celso, Dressing unwrapped. Gangrenous toe, progressing since previous day. No LE pain, fowl smelling discharge. Stable hemodynamics. Pt intermittently confused. On Abx per Dr Guevara Wound care physician consulted IR dr Patel for LE vascular intervention in light of progressing gangrene. Started on cilostazole. Consulted Dr Babb Orthopedics for eval and recommndations. No f/C,pain. discussed with patient in depth about gangrene and risk of progressive infection. Patient agreeable to orthopedics consulted and possible amputation. Await interventional radiology consultation in light of severe peripheral vascular disease.continue cilostazol 06/02- Patient scheduled for IR angioplasty tomorrow. Ortho consulted and recommnds transmet amputation post revasc procedure. Wound care on board. On Abx per physician dr Barnett. medical issues stable and managed by Hospitalist service on meds as below. No overnight F,C,Pain or SOB. Case discussed with patient's POA step [id number] Clarita on telephone after I received a call from [employer] Domenica STEVENS. patient's POA was concerned about her not having much knowledge above plan of care. I explained Annetta Bledsoe patient's current clinical status including of interval development of dry gangrenous toes which has progressed with a clear demarcation and is likely secondary to underlying peripheral vascular vascular disease. As per Dr. Barnett wound care physician patient's lower extremity cellulitis and wound have considerably improve however given his severe PVD/PAD patient will require vascular studies and possible angioplasty/intervention directed towards revascularization. Dr. Barnett coordinated with interventional radiologist Dr. Patel and patient is scheduled for vaascular procedure at [place] in the next 24 hours. Postprocedure if adequate circulation is restored, orthopedics surgeon Dr. Huerta who has been consulted will further intervene on gangrenous toe based on response to revascularization. Patient may eventually need a transmetatarsal amputation as per orthopedics. I also informed Annetta Bledsoe POA about patient consenting to above procedures during my conversation the day prior. patient was also concerned about his gangrenous toes and expresses desire for treatment. He understands the treatment may include amputation and he is willing to proceed with necessary interventions. During our conversation he was in a clear state of mind and demonstrated a clear understanding of his disease process. Annetta Bledsoe was very appreciative of information and expressed desire to be involved in future decision making involving Ryan's goals of care. We will have further discussions after vascular procedures with patient and POA for goals of care. 06/03- patient will be transferred to inpatient status o enablevascular intervention procedures/continue wound management per and orthopedics is Dr. Huerta. In terms of subdural hematoma/hypoglycemia patient has improved. His hematoma has not progressed and his blood sugars have been at goal off basal insulin. ll other medical issues have been stable including chronic kidney disease that have been managed by hospitalist service. Await further input postprocedure from Dr. Lomeli wound care physician and Dr. Huerta orthopedics. Review of systems: atient alert oriented. No significant change since previous day no anxiety tolerating physical therapy on-labored breathing Nondistended abdomen Medical - H&P: Meds Home Medications Medication Instructions Recorded Confirmed Type Carvedilol [Coreg] 12.5 mg PO BIDCC 04/15/16 05/28/16 History Clindamycin [Cleocin] 300 mg PO TID #60 capsule 04/15/16 05/28/16 Rx Digoxin [Lanoxin] 125 mcg PO DAILY 04/15/16 05/28/16 History Donepezil [Aricept] 10 mg PO HS 04/15/16 05/28/16 History Furosemide [Lasix] 40 mg PO BID #30 tablet 04/15/16 05/28/16 Rx Levothyroxine [Synthroid] 75 mcg PO DAILY 04/15/16 05/28/16 History Niacin [Niacor] 500 mg PO HS 04/15/16 05/28/16 History Omeprazole [Prilosec] 20 mg PO DAILY 04/15/16 05/28/16 History Oxybutynin Chloride [Oxybutynin 10 mg PO DAILY 04/15/16 05/28/16 History Chloride ER] sitaGLIPtin [Januvia] 50 mg PO DAILY 04/15/16 05/28/16 History Albuterol Sulfate [Ventolin] 2.5 mg NEB DAILY 05/14/16 05/28/16 History Cholecalciferol (Vitamin D3) 2,000 unit PO DAILY 05/14/16 05/28/16 History [Vitamin D3] Clobetasol Propionate/Emoll 15 gm TP DAILY 05/14/16 05/28/16 History [Clobetasol Emollient 0.05% Crm] Docusate Sodium [Colace] 100 mg PO Q48@0900 02/09/17 02/23/17 History HYDROmorphone HCL [Dilaudid] 2 mg PO Q4-6HP PRN 05/14/16 05/28/16 History Polyethylene Glycol 3350 17 gm PO QDP PRN 05/14/16 05/28/16 History DAPTOmycin [Cubicin] 500 mg IV Q24H #0 vial 05/28/16 05/28/16 Rx Insulin Glargine, Human [Lantus] 35 unit SQ HS 05/28/16 05/28/16 History Repaglinide [Prandin] 0.5 mg PO TIDAC tablet 05/28/16 05/28/16 Rx Tamsulosin [Flomax] 0.4 mg PO HS capsule 05/28/16 05/28/16 Rx Tiotropium [place] [Spiriva] 18 mcg INH DAILY 05/28/16 05/28/16 History Verapamil HCl [Verapamil ER] 180 mg PO DAILY 05/28/16 05/28/16 History Warfarin [Coumadin] 2 mg PO DAILY 05/28/16 05/28/16 History Allergies Allergy/AdvReac Type Severity Reaction Status Date / Time morphine AdvReac Unknown Unknown Verified 05/14/16 07:15 Medical - H&P: Exam - Constitutional Exam: no significant changes since previous day Nonlabored breathing nondistended abdomen No anxiety alert oriented To self and place but not to time Medical - H&P: A/P (1) Toe gangrene Current visit: Yes Status: Acute * 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 Wound care managing -> vascular intervention today- [facility] by Dr. Patel. continue cilostazol. * Left foot cellulitis. clinically improving as per Dr. Barnett wound care physician. continuing on antibiotics- dapto/clindamycin per Dr Guevara Issues managed by hospitalist service * Hypochromic microcytic anemia with anisopiokilocytosis-status post 800 mg IV iron infusion. continue monitoring hemoglobin * Peripheral arterial disease-continue cilostazol. await further recommendations from Dr. Patel IR * Recurrent falls- on fall watch. ongoing physical therapy. Clinically improving * DM type II- off basal insulin,continue Prandin. blood sugars at goal 100 * A. fib on digoxin/Coreg. Rate controlled * history of chronic kidney disease- creatinine at baseline around 1.6 * Dementia continue donepezil. mentation at baseline * hyperlipidemia on statin * Hypothyroidism - thyroxine * GERD on PPI * BPH continue tamsulosin plan * Gangrene/cellulitis management perwound care physician Dr. Lomeli/intervention radiology Dr. Patel/Dr. Huerta orthopedics * antibiotics as per wound care physician-daptomycin/gentamicin * Medical condition management as per hospitalist service as above
[2016-06-03] MEDS ORDERED: POLYETHYLENE GLYCOL PO PRN (14:58)
[2016-06-03] MEDS ORDERED: POLYETHYLENE GLYCOL 3350 17 GM PACKET PO PRN (15:28)
[2016-06-03] MEDS ORDERED: SENNOSIDES/DOCUSATE SODIUM 1 TAB TABLET PO SCH (21:00)
[2016-06-03] MEDS ORDERED: DONEPEZIL 10 MG TABLET PO SCH (21:00)
[2016-06-03] MEDS ORDERED: TAMSULOSIN 0.4 MG CAPSULE PO SCH (21:00)
[2016-06-04] MEDS ORDERED: LEVOTHYROXINE 75 MCG TABLET PO SCH (07:30)
[2016-06-04] MEDS ORDERED: PANTOPRAZOLE 40 MG TABLET PO SCH (07:30)
[2016-06-04] MEDS ORDERED: sitaGLIPtin 50 MG TABLET PO SCH (09:00)
[2016-06-04] MEDS ORDERED: sitaGLIPtin 100 MG TABLET PO SCH (09:00)
[2016-06-04] MEDS ORDERED: DIGOXIN 125 MCG TABLET PO SCH (09:00)
[2016-06-04] MEDS ORDERED: VERAPAMIL 180 MG TAB.XL.24H PO SCH (09:00)
[2016-06-04] MEDS ORDERED: FOLIC ACID 1 MG TABLET PO SCH (09:00)
[2016-06-04] MEDS ORDERED: MULTIVIT,THER IRON,CA,FA & MIN 1 TABLET PO SCH (09:00)
[2016-06-04] MEDS ORDERED: FUROSEMIDE 40 MG TABLET PO SCH (09:00)
[2016-06-04] MEDS ORDERED: TIOTROPIUM BROMIDE 18 MCG INHALANT INH SCH (09:00)
[2016-06-04] MEDS: 0.9 % SODIUM CHLORIDE 10 ML SYRINGE IV SCH ×3 (09:33→22:32)
[2016-06-04] MEDS: DAPTOmycin 500 MG VIAL IV SCH ×2 (09:33→17:59)
[2016-06-04] MEDS: CLINDAMYCIN 150 MG CAPSULE PO SCH ×3 (09:34→22:32)
[2016-06-04] MEDS: INSULIN LISPRO 1 UNIT/0.01 ML UNIT SQ SCH ×4 (09:35→21:20)
[2016-06-04] MEDS: CARVEDILOL 12.5 MG TABLET PO SCH ×2 (09:36→18:08)
[2016-06-04] MEDS: DOCUSATE SODIUM 100 MG CAPSULE PO SCH ×2 (09:36→21:21)
[2016-06-04] MEDS: REPAGLINIDE 1 MG TABLET PO SCH ×3 (09:36→18:08)
[2016-06-04] MEDS: CYANOCOBALAMIN (VITAMIN B-12) 500 MCG TABLET PO SCH ×2 (09:37→21:21)
[2016-06-04] MEDS ORDERED: KETAMINE 100 MG/ML ML IV ONE (13:25)
[2016-06-04] MEDS ORDERED: GLYCOPYRROLATE 0.2 MG/ML VIAL IV ONE (13:25)
[2016-06-04] MEDS ORDERED: MIDAZOLAM 5 MG/5 ML VIAL IV ONE (13:25)
[2016-06-04] MEDS ORDERED: fentaNYL 100 MCG/2 ML VIAL IV ONE (13:25)
[2016-06-04] MEDS ORDERED: TRANEXAMIC ACID 1,000 MG/10 ML VIAL IV ONE (13:48)
[2016-06-04] MEDS ORDERED: NALOXONE HCL 0.4 MG/ML VIAL IV PRN (14:00)
[2016-06-04] MEDS ORDERED: fentaNYL 100 MCG/2 ML VIAL IV PRN (14:00)
[2016-06-04] MEDS ORDERED: IPRATROPIUM/ALBUTEROL 3 ML AMPUL.NEB NEB PRN (14:00)
[2016-06-04] MEDS ORDERED: FLUMAZENIL 0.1 MG/ML ML IV PRN (14:00)
[2016-06-04] MEDS ORDERED: BENZOCAINE/MENTHOL 1 LOZENGE PO PRN (14:00)
[2016-06-04] MEDS ORDERED: diphenhydrAMINE 50 MG/ML VIAL IV PRN (14:00)
[2016-06-04] MEDS ORDERED: HYDROmorphone 2 MG/ML SYRINGE IV PRN (14:00)
[2016-06-04] MEDS ORDERED: ePHEDrine 50 MG/ML AMPUL IV PRN (14:00)
[2016-06-04] MEDS ORDERED: LACTATED RINGERS 1,000 ML IV SCH (14:00)
[2016-06-04] MEDS ORDERED: ONDANSETRON 4 MG/2 ML VIAL IV PRN ×2 (14:00→15:16)
[2016-06-04] MEDS ORDERED: LACTATED RINGERS 250 ML IV PRN (14:00)
[2016-06-04] MEDS ORDERED: LIDOCAINE 1% 20 ML VIAL SQ ONE (14:20)
[2016-06-04] MEDS ORDERED: BUPIVACAINE 0.5% 50 ML VIAL IJ ONE (14:22)
[2016-06-04] MEDS ORDERED: HYDROmorphone 2 MG TABLET PO PRN (14:33)
--- NOTE | 2016-06-04 15:02 | Internal Med Progress Note ---
Medical - PN: Subj Patient information: Note initiated : 06/04/16 at 3:02 pm Service Date, if different from initiated Date: [] Patient: Ryan Nunes 86 y/o M admitted on 06/03/16 for Cellulitis. Chief Complaint: [] Interval history: 06/03- Await further input postprocedure from Dr. Lomeli wound care physician and Dr. Huerta orthopedics. Mr. Nunes is a 86 year old male admitted with subdural hematoma/fall/ secondary to hypoglycemia. patient however had chronic lower extremity toenail fungus and had toenail removal developed toe cellulitis and was managed on antibiotics by wound care clinic. Over the last few weeks patient has had progressive gangrenous changes involving the left foot/toes and has been undergoing aggressive wound care treatment along with antibiotics as per Dr. Barnett. With concerns of severe peripheral vascular disease leading to dry gangrene Dr. Lomeli coordinated vascular intervention with Dr. Patel intervention radiologist to [place]. patient will undergo revascularization/ angioplasty today. Orthopedics was also consulted for evaluation of gangrene and recommends amputation post vascular intervention. hospitalist service during this admission will continue to manage medical issues including diabetes chronic kidney disease along with atrial fibrillation , hypothyroidism/hyperlipidemia and will address any other medical needs require during hospitalization 06/04- patient is post transmetatarsal amputation performed by Dr. Huerta. status post vascular intervention by Dr. Patel. On Plavix. Anticipate [facility] rehabilitation transfer for continued wound care and post hospitalization rehabilitation. DC antibiotics in 24 hours. case discussed with patient's POA and patient along with fan Babb at bedside. patient and POA agreeable with treatment plan. Stable hemodynamics. - Constitutional Vitals: Vital Signs Temp Pulse Resp BP Pulse Ox 97.4 F L 54 L 12 131/53 99 06/04/16 15:01 06/04/16 15:01 06/04/16 15:01 06/04/16 15:01 06/04/16 15:01 Period Temp Pulse Resp BP Sys/Francis Pulse Ox Last 24 Hr 97.4 F-97.7 F 48-61 10-16 105-134/41-65 96-99 Intake and Output 06/04/16 06/04/16 06/04/16 05:59 13:59 21:59 Intake Total 800 / 800 Output Total 700 / 700 Balance 100 / 100 Weight 186 lb Patient Weight 06/05/16 05:59 Weight 186 lb Intake & Output: Intake & Output 06/04/16 06/04/16 06/04/16 05:59 13:59 21:59 Intake Total 800 / 800 Output Total 700 / 700 Balance 100 / 100 Weight 186 lb Intake: IV 800 / 800 Output: Void Amount 600 / 600 Straight 600 / 600 Estimated Blood Loss 100 / 100 Medical - PN: Obj Da - Labs Meds: Medications Acetaminophen (Tylenol) 650 mg PO Q4-6HP PRN PRN Reason: PAIN/FEVER > 101 Acetaminophen/Hydrocodone Bitart ([place] 5/325mg) 0 tab PO Q4HP PRN PRN Reason: Pain Albuterol Sulfate (Ventolin) 2.5 mg NEB DAILY DENISHA Albuterol/Ipratropium (Duoneb) 3 ml NEB ONCE PRN PRN Reason: Wheezing Stop: 06/04/16 16:00 Bupivacaine HCl (Marcaine 0.5%) 20 ml IJ ONCE ONE Stop: 06/04/16 14:23 Last Admin: 06/04/16 14:22 Dose: 30 ml [facility] ([facility]g) [facility] Last Admin: 06/04/16 09:36 Dose: Not Given Clindamycin HCl (Cleocin) 300 mg PO TID [facility] Last Admin: 06/04/16 09:57 Dose: Not Given Clopidogrel Bisulfate (Plavix) 75 mg PO DAILY [facility] Cyanocobalamin (Vitamin B-12) 1,000 mcg PO BID [facility] Stop: 06/08/16 09:01 Last Admin: 06/04/16 09:37 Dose: Not Given Daptomycin (Cubicin) 500 mg IV Q24H [facility] Last Admin: 06/04/16 09:33 Dose: Not Given Dextrose (Dextrose 50%) 0 ml IV UD PRN PRN Reason: Hypoglycemia Diagnostic Test (Pha) (Accu-Chek) 1 each FS ACHS [facility] Last Admin: 06/04/16 11:50 Dose: 1 each Digoxin (Lanoxin) 125 mcg PO DAILY [facility] Last Admin: 06/04/16 09:38 Dose: Not Given Diphenhydramine HCl (Benadryl) 25 mg IV ONCE PRN PRN Reason: ITCH Stop: 06/04/16 16:00 Docusate Sodium (Colace) 100 mg PO BID [facility] Last Admin: 06/04/16 09:36 Dose: Not Given Docusate Sodium (Colace) 100 mg PO Q48@0900 [facility] Donepezil HCl (Aricept) 10 mg PO HS [facility] Last Admin: 06/04/16 09:36 Dose: Not Given Ephedrine Sulfate (Ephedrine Sulfate) 0 mg IV Q30M PRN PRN Reason: Hypotension Stop: 06/04/16 16:00 Fentanyl (Sublimaze) 25 mcg IV Q2M PRN PRN Reason: Pain Stop: 06/04/16 16:01 Flumazenil (Romazicon) 0.1 mg IV Q2MIN PRN PRN Reason: BENZODIAZEPINE REVERSAL Stop: 06/04/16 16:01 Folic Acid (Folic Acid) 1 mg PO DAILY [facility] Last Admin: 06/04/16 09:38 Dose: Not Given Furosemide (Lasix) 40 mg PO DAILY [facility] Last Admin: 06/04/16 09:32 Dose: Not Given Hydromorphone HCl (Dilaudid) 0.5 mg IV Q5MIN PRN PRN Reason: Pain Stop: 06/04/16 16:01 Hydromorphone HCl (Dilaudid) 2 mg PO Q4-6HP PRN PRN Reason: Pain Magnesium Sulfate (Magnesium Sulfate) 2 gm in 50 mls @ 50 mls/hr IV UD PRN PRN Reason: MG = or < 1.7 Acetaminophen (Ofirmev) 1,000 mg in 100 mls @ 200 mls/hr IV Q6HP PRN PRN Reason: PAIN/FEVER > 101 Lactated Ringer's (Lactated Ringers) 250 mls @ 0 mls/hr IV PRN PRN; Wide Open PRN Reason: Hypovolemia Stop: 06/04/16 16:01 Lactated Ringer's (Lactated Ringers) 1,000 mls @ 20 mls/hr IV .Q24H [facility] Stop: 06/04/16 16:01 Insulin Glargine (Lantus) 35 unit SQ HS [facility] Insulin Human Lispro (Humalog) 0 unit SQ ACHS DENISHA PRN Reason: Protocol Last Admin: 06/04/16 11:51 Dose: Not Given Iron Carb/Multivit/[place]/Folic Acid (Multivitamin W/Minerals) 1 tab PO DAILY [facility] Last Admin: 06/04/16 09:32 Dose: Not Given Levothyroxine Sodium (Synthroid) 75 mcg PO QAMAC [facility] Last Admin: 06/04/16 09:38 Dose: Not Given Lidocaine HCl (Lidocaine 1%) 20 ml SQ ONCE ONE Stop: 06/04/16 14:21 Last Admin: 06/04/16 14:21 Dose: 20 ml Naloxone HCl (Narcan) 0.1 mg IV Q2MIN PRN PRN Reason: Opiate Reversal Stop: 06/04/16 16:01 Non-Formulary Medication (Cholecalciferol (Vitamin D3) [Vitamin D3]) 2,000 unit PO DAILY [facility] Non-Formulary Medication (Clobetasol Propionate/Emoll [Clobetasol Emollient 0.05 % Crm]) 15 gm TP DAILY [facility] Non-Formulary Medication (Niacin [Niacor]) 500 mg PO [facility] Non-Formulary Medication (Oxybutynin Chloride [Oxybutynin Chloride Er]) 10 mg PO DAILY [facility] Ondansetron HCl (Zofran) 4 mg IV Q4-6HP PRN PRN Reason: Nausea And Vomiting Ondansetron HCl (Zofran) 4 mg IV ONCE PRN PRN Reason: Nausea And Vomiting Stop: 06/04/16 16:01 Pantoprazole Sodium (Protonix) [facility] Last Admin: 06/04/16 09:37 Dose: Not Given Polyethylene Glycol (Miralax) 17 gm PO DAILYP PRN PRN Reason: Constipation Repaglinide (Prandin) 0.5 mg PO TIDAC [facility] Last Admin: 06/04/16 11:51 Dose: Not Given Senna/Docusate Sodium (Senna Plus Tablet) 1 tab PO [facility] Last Admin: 06/04/16 09:37 Dose: Not Given Sitagliptin Phosphate (Januvia) 100 mg PO DAILY [facility] Last Admin: 06/04/16 09:38 Dose: Not Given Sitagliptin Phosphate (Januvia) 50 mg PO DAILY [facility] Last Admin: 06/04/16 09:38 Dose: Not Given Sodium Chloride (Saline Flush) 10 ml IV Q8 [facility] Last Admin: 06/04/16 09:33 Dose: Not Given Tamsulosin HCl (Flomax) 0.4 mg PO [facility] Last Admin: 03/02/17 09:37 Dose: Not Given Throat Lozenges (Cepacol) 1 lozenge PO PRN PRN PRN Reason: Sore Throat Stop: 06/04/16 16:00 Tiotropium [place] (Spiriva) 18 mcg INH DAILY [facility] Last Admin: 06/04/16 09:31 Dose: Not Given Tranexamic Acid (Tranexamic Acid) 1,000 mg IV ONCE ONE Stop: 06/04/16 13:49 Last Admin: 06/04/16 14:18 Dose: 1,000 mg Trazodone HCl (Desyrel) 50 mg PO HSP PRN PRN Reason: Insomnia Verapamil HCl (Calan Sr) 180 mg PO DAILY [facility] Last Admin: 06/04/16 09:38 Dose: Not Given Warfarin Sodium (Coumadin) 2 mg PO DAILY [facility] Medical - PN: A/P - Time Spent With Patient Total time spent is greater than 50% in coordination of care (as documented) at patient's floor/unit and/or counseling patient: 15 - 24 minutes (1) Toe gangrene Status: Acute Assessment and plan: * Left foot/toe gangrene- post amputation day 1/vascular procedure by Dr. Patel. On Plavix. Continue wound care. Anticipate transfer to [facility] * Left foot cellulitis. clinically improving. Managed by Dr. Barnett. DC antibiotics in 24 hours Issues managed by hospitalist service * Hypochromic microcytic anemia with anisopiokilocytosis-status post 800 mg IV iron infusion. CBC in a.m. * peripheral artery disease- on Plavix status post vascular intervention by Derick Patel intervention radiology * Severe deconditioning- anticipate LTAC transfer for rehabilitation * DM type II- off basal insulin, continue Prandin * A. fib on digoxin/Coreg. Rate controlled * history of chronic kidney disease-baseline Cr 1.6. Continue monitoring renal function * Dementia continue donepezil. mentation at baseline * hyperlipidemia on statin * Hypothyroidism - thyroxine * GERD on PPI * BPH continue tamsulosin plan * postoperative care per orthopedics * recommend discontinuing antibiotics in 24 hours * Medical condition management as per hospitalist service as above Current Visit: Yes Medical - PN: Qual - VTE Deep Vein Thrombosis/Pulmonary Embolism Present on Admission: No
--- NOTE | 2016-06-04 15:10 | XRay Report ---
HISTORY: Reason for Exam:s/p transmet amp FINDINGS: The distal foot has been amputated across the bases of the first through fifth metatarsals. Adjacent to the residual metatarsals there is significant lobulated soft tissue thickening. There is no bone erosion or periosteal elevation. No gas is seen in the soft tissues. There are extensive vascular calcifications in the foot and ankle. Calcaneal spurs are noted. IMPRESSION: No radiographic evidence of osteomyelitis Interpreted and Authenticated by: Edwar Castañeda 06/04/16
[2016-06-04] MEDS ORDERED: ACETAMINOPHEN 1,000 MG/100 ML BOTTLE IV PRN (15:16)
[2016-06-04] MEDS ORDERED: DEXTROSE 50% 50 ML VIAL IV PRN (15:16)
[2016-06-04] MEDS ORDERED: POLYETHYLENE GLYCOL 3350 17 GM PACKET PO PRN (15:16)
[2016-06-04] MEDS ORDERED: MAGNESIUM SULFATE 2 GM/50 ML BAG IV PRN (15:16)
[2016-06-04] MEDS ORDERED: ACETAMINOPHEN 325 MG TABLET PO PRN (15:16)
--- NOTE | 2016-06-04 15:29 | Operative Note ---
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 OPERATION: Left transmetatarsal amputation. SURGEON: Jose M Huerta MD. RECREATION FACILITY ATTENDANT: Sukhdev Mead PA-C. ANESTHESIA: Ankle block with sedation. SUMMARY OF PROCEDURE: The patient was sedated. An ankle block was placed with 35 mL of Marcaine. The foot and ankle was prepped and draped. An ankle level Esmarch tourniquet was put up. A modified fishmouth incision was made sharply around the mid foot. It was taken down to the proximal aspect of the metatarsals. I then used a saw to osteotomize the metatarsals about 1.5 cm distal to the corresponding midfoot joints. It was done in a decrescendo pattern from first to fifth metatarsal. The osteotomies were completed. A bevel cut was made in the soft tissue to remove the sesamoids and as much tendon as possible (flexor tendons and extensor tendons). The tourniquet was let down. All bleeding points and arterial bleeders were coagulated. The wound was irrigated and then I used 1 gram of tranexamic acid. There was minimal to no bleeding, and I did not think a drain was needed. There was no purulence in the wound. The subcutaneous tissue was closed with interrupted 2-0 Vicryl. The skin was closed with mattress sutures of 2-0 Prolene. A sterile compressive dressing was applied. The sponge and needle count was correct. The patient tolerated the procedure well and was taken to the recovery room in stable condition. TJF:cate Job ID: [id number] Doc ID: [id number] Jose M Huerta MD
[2016-06-04 18:59] LABS: Mean Cell Volume 76.4 fL (80.0-100.0); Mean Corpuscular HGB Conc 30.9 g/dL (31.0-36.0); Mean Corpuscular Hemoglobin 23.6 pg (26.0-34.0); Platelet Count 141 K/mcL (140-440); RBC 4.57 M/mcL (4.50-5.90); Red Cell Distribution Width 32.9 % (11.5-14.5)
[2016-06-04 19:32] LABS: Anisocytosis 3+ (NONE SEEN); Band Neutrophils % 2 % (0-10); Basophils % (Manual) 1 % (0-2); Eosinophils % (Manual) 1 % (0-7); Hypochromasia 2+ (NONE SEEN); Lymphocytes % 13 % (15-49); Monocytes % (Manual) 6 % (1-9); Platelet Estimate NORMAL (NORMAL); RBC Morphology ABNORMAL (NORMAL); Segmented Neutrophils % 77 % (38-78)
[2016-06-04 19:34] LABS: ALT/SGPT 31 U/l (0-40); Albumin 3.6 gm/dL (3.2-5.2); Albumin/Globulin Ratio 1.2 (1.0-2.3); Alkaline Phosphatase 55 U/L (39-117); Bilirubin,Direct < 0.2 mg/dL (0.0-0.3); Blood Urea Nitrogen 19 mg/dl (8-23); Gamma Glutamyl Transpeptidase 49 U/L (8-61); Magnesium 2.3 mg/dL (1.6-2.5); Phosphorous 3.6 mg/dL (2.7-4.5)
[2016-06-04] MEDS ORDERED: traZODone HCL 50 MG TABLET PO PRN (21:00)
[2016-06-04] MEDS ORDERED: NIACIN 500 MG PO SCH (21:00)
[2016-06-04] MEDS ORDERED: SENNOSIDES/DOCUSATE SODIUM 1 TAB TABLET PO SCH (21:00)
[2016-06-04] MEDS ORDERED: INSULIN GLARGINE, HUMAN 1 UNIT/0.01 ML SQ SCH ×2 (21:00)
[2016-06-04] MEDS ORDERED: NIACIN 100 MG TABLET PO SCH (21:00)
[2016-06-04] MEDS ORDERED: TAMSULOSIN 0.4 MG CAPSULE PO SCH (21:00)
[2016-06-04] MEDS ORDERED: CLINDAMYCIN 150 MG CAPSULE PO SCH (21:00)
[2016-06-04] MEDS ORDERED: DONEPEZIL 10 MG TABLET PO SCH (21:00)
[2016-06-04] MEDS: HYDROmorphone 2 MG TABLET PO PRN (21:29)
[2016-06-05] MEDS: HYDROmorphone 2 MG TABLET PO PRN ×2 (02:25→07:29)
[2016-06-05] MEDS: 0.9 % SODIUM CHLORIDE 10 ML SYRINGE IV SCH (06:17)
[2016-06-05 06:29] LABS: Mean Cell Volume 75.6 fL (80.0-100.0); Mean Corpuscular HGB Conc 31.2 g/dL (31.0-36.0); Mean Corpuscular Hemoglobin 23.6 pg (26.0-34.0); Platelet Count 134 K/mcL (140-440); RBC 3.91 M/mcL (4.50-5.90); Red Cell Distribution Width 32.7 % (11.5-14.5)
[2016-06-05 06:48] LABS: ALT/SGPT 26 U/l (0-40); Albumin 3.3 gm/dL (3.2-5.2); Albumin/Globulin Ratio 1.3 (1.0-2.3); Alkaline Phosphatase 56 U/L (39-117); Bilirubin,Direct < 0.2 mg/dL (0.0-0.3); Blood Urea Nitrogen 19 mg/dl (8-23); Gamma Glutamyl Transpeptidase 47 U/L (8-61); Magnesium 2.2 mg/dL (1.6-2.5); Phosphorous 2.6 mg/dL (2.7-4.5); Uric Acid 8.1 mg/dL (2.5-8.0)
[2016-06-05] MEDS: REPAGLINIDE 1 MG TABLET PO SCH ×2 (06:53→09:37)
[2016-06-05] MEDS: INSULIN LISPRO 1 UNIT/0.01 ML UNIT SQ SCH ×2 (06:53→11:13)
[2016-06-05] MEDS ORDERED: PANTOPRAZOLE 40 MG TABLET PO SCH (07:30)
[2016-06-05] MEDS ORDERED: LEVOTHYROXINE 75 MCG TABLET PO SCH (07:30)
--- NOTE | 2016-06-05 07:39 | Orthopedic Progress Note ---
Subjective Patient information: Note initiated : 06/05/16 at 7:37 am Service Date, if different from initiated Date: [] Patient: Ryan Nunes 86 y/o M admitted on 06/03/16 for Cellulitis. Chief Complaint: [] Principal diagnosis: R TMA yesterday Objective Vital signs: Vital Signs Temp Pulse Resp BP BP Pulse Ox 06/05/16 07:05 98.2 F 16 133/66 94 06/05/16 03:40 99.1 F 73 20 150/65 96 06/05/16 00:00 98.3 F 77 18 165/54 94 06/04/16 20:00 97.6 F 67 16 129/52 95 06/04/16 16:43 97.2 F L 50 L 16 126/55 100 06/04/16 15:01 97.4 F L 54 L 12 131/53 99 06/04/16 14:49 58 L 10 L 123/46 99 06/04/16 14:40 59 L 10 L 134/46 99 06/04/16 14:35 61 10 L 134/65 98 06/04/16 14:33 97.5 F L 56 L 14 111/51 97 06/04/16 12:00 97.7 F 48 L 16 105/41 96 Intake and Output 06/04/16 06/05/16 06/05/16 21:59 05:59 13:59 Intake Total 920 / 920 300 / 300 Output Total 701 / 701 52 / 52 Balance 219 / 219 248 / 248 Intake: IV 800 / 800 Oral 120 / 120 300 / 300 Output: Void Amount 600 / 600 50 / 50 Straight 600 / 600 # of times incontinent of 1 / 1 2 / 2 urine Estimated Blood Loss 100 / 100 Other: Meal Dinner Percent of Meal Consumed 75% Feeding Ability Independent # Voids 1 Weight 185 lb Intake & Output: Intake & Output 06/04/16 06/05/16 06/05/16 21:59 05:59 13:59 Intake Total 920 / 920 300 / 300 Output Total 701 / 701 52 / 52 Balance 219 / 219 248 / 248 Weight 185 lb Intake: IV 800 / 800 Oral 120 / 120 300 / 300 Output: Void Amount 600 / 600 50 / 50 Straight 600 / 600 # of times incontinent of 1 / 1 2 / 2 urine Estimated Blood Loss 100 / 100 Other: Meal Dinner Percent of Meal Consumed 75% Feeding Ability Independent # Voids 1 Dressing: Yes clean, Yes dry, Yes intact Weight bearing status: full Neurological exam IM: Yes alert, Yes altered - Labs CBC & BMP: 06/05/16 04:18 06/05/16 04:18 Labs: Orthopedic Labs 06/05/16 04:18 PT 16.4 H INR 1.3 H 06/05/16 06/04/16 04:18 18:10 Hgb 9.2 L 10.8 L Hct 29.6 L 34.9 L Assessment and Plan (1) Status post transmetatarsal amputation of right foot BRP Plavix dressing change tomorrow Status: Acute
[2016-06-05 08:01] LABS: Anisocytosis 3+ (NONE SEEN); Hypochromasia 1+ (NONE SEEN); Lymphocytes % 11 % (15-49); Monocytes % (Manual) 10 % (1-9); Ovalocytes 1+ (NONE SEEN); Platelet Estimate DECREASED (NORMAL); RBC Morphology ABNORM (NORMAL); Segmented Neutrophils % 79 % (38-78)
[2016-06-05] MEDS ORDERED: CLOPIDOGREL 75 MG TABLET PO SCH (09:00)
[2016-06-05] MEDS ORDERED: DIGOXIN 125 MCG TABLET PO SCH (09:00)
[2016-06-05] MEDS ORDERED: sitaGLIPtin 100 MG TABLET PO SCH (09:00)
[2016-06-05] MEDS ORDERED: VITAMIN D3 1,000 UNIT TABLET PO SCH ×2 (09:00)
[2016-06-05] MEDS ORDERED: sitaGLIPtin 50 MG TABLET PO SCH (09:00)
[2016-06-05] MEDS ORDERED: CLOBETASOL PROP OINT 0.05% TUBE 15GM TOPICAL SCH ×2 (09:00)
[2016-06-05] MEDS ORDERED: FUROSEMIDE 40 MG TABLET PO SCH (09:00)
[2016-06-05] MEDS ORDERED: TIOTROPIUM BROMIDE 18 MCG INHALANT INH SCH (09:00)
[2016-06-05] MEDS ORDERED: VERAPAMIL 180 MG TAB.XL.24H PO SCH (09:00)
[2016-06-05] MEDS ORDERED: OXYBUTYNIN CHLORIDE 5 MG TAB.XL.24H PO SCH ×2 (09:00)
[2016-06-05] MEDS ORDERED: FOLIC ACID 1 MG TABLET PO SCH (09:00)
[2016-06-05] MEDS ORDERED: ALBUTEROL SULFATE 2.5 MG/3 ML NEBULIZER NEB SCH ×2 (09:00)
[2016-06-05] MEDS ORDERED: MULTIVIT,THER IRON,CA,FA & MIN 1 TABLET PO SCH (09:00)
[2016-06-05] MEDS: CARVEDILOL 12.5 MG TABLET PO SCH (09:36)
[2016-06-05] MEDS: DOCUSATE SODIUM 100 MG CAPSULE PO SCH (09:37)
[2016-06-05] MEDS: CYANOCOBALAMIN (VITAMIN B-12) 500 MCG TABLET PO SCH (09:37)
--- NOTE | 2016-06-05 10:15 | Discharge Summary ---
Medical - DS: Prov Patient information: Note initiated : 06/05/16 at 10:11 am Service Date, if different from initiated Date: [] Patient: Ryan Nunes 86 y/o M admitted on 06/03/16 for Cellulitis. Chief Complaint: [] Date of admission: 06/03/16 12:13 Discharge date: 06/05/16 Primary care physician: [f_Reg Prim Care Provider] Consults: 06/05/16 09:50 Consult to Physician [CONS] Routine Comment: Consulting Provider: [facility] Reason For Exam: Physician to Consult Medical - DS: Meds - Discharge Medications Active and Home Medications: Home Medications Carvedilol [Coreg] 12.5 mg PO BIDCC 04/15/16 [History Confirmed 06/03/16 Last Taken 06/03/16 06:57] Clindamycin [Cleocin] 300 mg PO TID #60 capsule 04/15/16 [Rx Confirmed 06/03/16 Last Taken 06/03/16 07:31] Digoxin [Lanoxin] 125 mcg PO DAILY 04/15/16 [History Confirmed 06/03/16 Last Taken 06/03/16 07:32] Donepezil [Aricept] 10 mg PO HS 04/15/16 [History Confirmed 06/03/16 Last Taken 05/27/16 20:30] Furosemide [Lasix] 40 mg PO BID #30 tablet 04/15/16 [Rx Confirmed 06/03/16 Last Taken 06/03/16 07:31] Levothyroxine [Synthroid] 75 mcg PO DAILY 04/15/16 [History Confirmed 06/03/16 Last Taken 06/03/16 06:47] Niacin [Niacor] 500 mg PO HS 04/15/16 [History Confirmed 06/03/16 Last Taken 21:03] Omeprazole [Prilosec] 20 mg PO DAILY 04/15/16 [History Confirmed 06/03/16 Last Taken 05/19/16 08:00] Oxybutynin Chloride [Oxybutynin Chloride ER] 10 mg PO DAILY 04/15/16 [History Confirmed 06/03/16 Last Taken 06/03/16 07:31] sitaGLIPtin [Januvia] 50 mg PO DAILY 04/15/16 [History Confirmed 06/03/16 Last Taken 06/03/16 07:32] Albuterol Sulfate [Ventolin] 2.5 mg NEB DAILY 05/14/16 [History Confirmed Last Taken 06/01/16 14:31] Cholecalciferol (Vitamin D3) [Vitamin D3] 2,000 unit PO DAILY 05/14/16 [History Confirmed 06/03/16 Last Taken 05/28/16 08:35] Clobetasol Propionate/Emoll [Clobetasol Emollient 0.05% Crm] 15 gm TP DAILY 12/20 [History Confirmed 06/03/16 Last Taken 05/18/16 21:00] Docusate Sodium [Colace] 100 mg PO Q48@0900 05/14/16 [History Confirmed Last Taken 06/03/16 07:32] HYDROmorphone HCL [Dilaudid] 2 mg PO Q4-6HP PRN 05/14/16 [History Confirmed 04/21 Last Taken 05/28/16 09:00] Polyethylene Glycol 3350 17 gm PO QDP PRN 05/14/16 [History Confirmed 06/03/16 Last Taken 05/18/16 08:00] DAPTOmycin [Cubicin] 500 mg IV Q24H #0 vial 05/28/16 [Rx Confirmed 06/03/16 Last Taken 06/02/16] Insulin Glargine, Human [Lantus] 35 unit SQ HS 05/28/16 [History Confirmed 06/03 Last Taken Unknown] Repaglinide [Prandin] 0.5 mg PO TIDAC tablet 05/28/16 [Rx Confirmed 06/03/16 Last Taken 06/03/16 06:58] Tamsulosin [Flomax] 0.4 mg PO HS capsule 05/28/16 [Rx Confirmed 06/03/16 Last Taken 06/02/16 21:00] Tiotropium [place] [Spiriva] 18 mcg INH DAILY 05/28/16 [History Confirmed Last Taken Unknown] Verapamil HCl [Verapamil ER] 180 mg PO DAILY 05/28/16 [History Confirmed Last Taken 06/03/16 07:30] Warfarin [Coumadin] 2 mg PO DAILY 05/28/16 [History Confirmed 06/03/16 Last Taken Unknown] Medical - DS: Hosp Hospital course: DISCHARGE DIAGNOSIS * 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 Patel. On Plavix. ransferring to SNF today * Left foot cellulitis. clinically resolved after excision of gangrenous toes. per orthopedics dr. Huerta antibiotic can be DC'd today. Issues managed by hospitalist service * Hypochromic microcytic anemia with anisopiokilocytosis-status post 800 mg IV iron infusion. Hemoglobin 9.2 * Peripheral artery disease- on Plavix status post vascular intervention by Derick Patel intervention radiology. continue outpatient follow-up with Dr. Patel as recommended * Severe deconditioning- SNF transfer for posthospitalization/post amputation rehabilitation * DM type II- continue Prandin and discontinue home dose Lantus in light of recurrent hypoglycemia leading to falls * A. fib on digoxin/Coreg. Rate controlled. Coumadin discontinued in light of falls with recent subdural hematoma * recent subdural hematoma- interval CT scan with no changes/progression and of hematoma as of May 23. patient will remain high risk bleed if anticoagulation continued along with Plavix and hence Coumadin has been discontinued. * Hstory of chronic kidney disease-baseline Cr 1.3. Stable/follow-up nephrology as outpatient. * Dementia continue donepezil. mentation at baseline * hyperlipidemia on statin * Hypothyroidism - thyroxine * GERD on PPI * BPH continue tamsulosin BRIEF HOSPITAL COURSE 06/03- admitted to inpatient. Await further input postprocedure from Dr. Lomeli wound care physician and Dr. Huerta orthopedics. ck Nunes is a 86 year old male admitted with subdural hematoma/ fall/ secondary to hypoglycemia. patient however had chronic lower extremity toenail fungus and had toenail removal as outpatient. He developed toe cellulitis and was managed on antibiotics by wound care clinic. Over the last few weeks patient has had progressive gangrenous changes involving the left foot /toes and has been undergoing aggressive wound care treatment along with antibiotics as per Dr. Barnett. With concerns of severe peripheral vascular disease leading to dry gangrene Dr. Lomeli coordinated vascular intervention with Dr. Patel intervention radiologist to [place]. patient will undergo revascularization/angioplasty today. Orthopedics was also consulted for evaluation of gangrene and recommends amputation post vascular intervention. hospitalist service during this admission will continue to manage medical issues including diabetes chronic kidney disease along with atrial fibrillation , hypothyroidism/hyperlipidemia and will address any other medical needs require during hospitalization 06/04- patient is post transmetatarsal amputation performed by Dr. Huerta. status post vascular intervention by Dr. Patel. On Plavix. Anticipate [facility] rehabilitation transfer for continued wound care and post hospitalization rehabilitation. DC antibiotics in 24 hours. case discussed with patient's POA and patient along with fan Babb at bedside. patient and POA agreeable with treatment plan. Stable hemodynamics. 06/05-postop day 2. Doing remarkably well. Antibiotics DC'd as per orthopedic recommendations. On Plavix forpost vascular intervention. Coumadin discontinued. Lantus discontinued. Detailed discharge instructions as below. Transfer to SNF for continued posthospitalization rehabilitation. Discharge diagnosis: for gangrene, peripheral vascular disease - Time Spent with Patient Total time spent providing and/or coordinating discharge services: Greater than 30 minutes Medical - DS: Exam - Constitutional Vitals: Vital Signs Temp Pulse Resp BP BP Pulse Ox 06/05/16 07:05 98.2 F 16 133/66 94 06/05/16 03:40 99.1 F 73 20 150/65 96 06/05/16 00:00 98.3 F 77 18 165/54 94 06/04/16 20:00 97.6 F 67 16 129/52 95 06/04/16 16:43 97.2 F L 50 L 16 126/55 100 06/04/16 15:01 97.4 F L 54 L 12 131/53 99 06/04/16 14:49 58 L 10 L 123/46 99 06/04/16 14:40 59 L 10 L 134/46 99 06/04/16 14:35 61 10 L 134/65 98 06/04/16 14:33 97.5 F L 56 L 14 111/51 97 06/04/16 12:00 97.7 F 48 L 16 105/41 96 Intake and Output 06/04/16 06/05/16 06/05/16 21:59 05:59 13:59 Intake Total 920 / 920 300 / 300 100 / 100 Output Total 701 / 701 52 / 52 Balance 219 / 219 248 / 248 100 / 100 Intake: IV 800 / 800 Oral 120 / 120 300 / 300 100 / 100 Output: Void Amount 600 / 600 50 / 50 Straight 600 / 600 # of times incontinent of 1 / 1 2 / 2 urine Estimated Blood Loss 100 / 100 Other: Meal Dinner Breakfast Percent of Meal Consumed 75% 100% Feeding Ability Independent Independent # Voids 1 Weight 185 lb Medical - DS: Data Labs on day of discharge: Labs from last 24 hours 06/05/16 06/05/16 06/05/16 04:18 04:18 04:18 WBC 5.3 RBC 3.91 L Hgb 9.2 L Hct 29.6 L MCV 75.6 L MCH 23.6 L MCHC 31.2 RDW 32.7 H Plt Count 134 L MPV 10.3 Total Counted 100 Seg Neutrophils % 79 H Band Neutrophils % Not Reportable Lymphocytes % 11 L Monocytes % (Manual) 10 H Eosinophils % (Manual) Basophils % (Manual) Platelet Estimate Decreased A RBC Morphology Abnorm A Hypochromasia 1+ A Anisocytosis 3+ A Microcytosis 1+ A Ovalocytes 1+ A PT 16.4 H INR 1.3 H Sodium 143 Potassium 3.6 Chloride 102 Carbon Dioxide 31 H Anion Gap 10.0 BUN 19 Creatinine 1.3 H GFR Calculation 49 Glucose 99 Uric Acid 8.1 H Calcium 9.6 Phosphorus 2.6 L Magnesium 2.2 Total Bilirubin 0.3 Direct Bilirubin < 0.2 GGT 47 AST 27 ALT 26 Alkaline Phosphatase 56 Lactate Dehydrogenase 170 Total Protein 5.8 L Albumin 3.3 Globulin 2.5 Albumin/Globulin Ratio 1.3 Triglycerides 74 06/04/16 06/04/16 18:10 18:10 WBC 5.2 RBC 4.57 Hgb 10.8 L Hct 34.9 L MCV 76.4 L MCH 23.6 L MCHC 30.9 L RDW 32.9 H Plt Count 141 MPV 9.4 Total Counted 100 Seg Neutrophils % 77 Band Neutrophils % 2 Lymphocytes % 13 L Monocytes % (Manual) 6 Eosinophils % (Manual) 1 Basophils % (Manual) 1 Platelet Estimate Normal RBC Morphology Abnormal Hypochromasia 2+ A Anisocytosis 3+ A Microcytosis 1+ A Ovalocytes PT INR Sodium 142 Potassium 3.6 Chloride 100 Carbon Dioxide 31 H Anion Gap 11.0 BUN 19 Creatinine 1.3 H GFR Calculation 49 Glucose 73 Uric Acid 8.0 Calcium 10.0 Phosphorus 3.6 Magnesium 2.3 Total Bilirubin 0.5 Direct Bilirubin < 0.2 GGT 49 AST 32 ALT 31 Alkaline Phosphatase 55 Lactate Dehydrogenase 195 Total Protein 6.6 Albumin 3.6 Globulin 3.0 Albumin/Globulin Ratio 1.2 Triglycerides 59 Medical - DS: A/P - Patient/Caregiver Discharge Instructions Activity: as per physical therapy Diet: Renal/Consistent Carbs Additional Instructions: Schedule an appointment with Dr Patel in 3-4 weeks for surgical follow up. Patient to fill scripts from Dr Patel after discharge for Plavix and Protonix. (in the chart) No tub baths swimming or hot tub for 2 weeks status post Angiogram done on . Follow up with Sukhdev for Dr Huerta in 1 week. Weight bearing to bathroom with post op shoe on, may work with P.T. for balance training with shoe on but no ambulation in hallway yet. continue postop care as per orthopedicsRecommendations Follow-up nephrology as outpatient for management of chronic disease Close follow-up of blood sugars and diabetes management per primary care physician Follow-up PCP in 5-10 days discontinue Coumadin/Lantus Continue Prandin to avoid hypoglycemia Coumadin as per orthopedics for post hip DVT prophylaxis I recommend SNF physician to check CBC BMP UA as a posthospital follow-up Continue aggressive bowel regimen to prevent constipation Continue fall precautions Continue aggressive PT OT at SNF All meals on chair sitting upright at 90 degrees to prevent aspiration Return to ER if worsening fever chills shortness of breath, diarrhea, bleeding Review risk and side effect profile of medications including Plavix. Side effect may include mild to severe reaction including life-threatening intracranial hemorrhage and even which can be prevented by close follow- up with care providers and monitoring for symptoms/neuro changes at SNF Continue diet and activity as advised Discussed importance of medication adherence Please review medication list with patient prior to discharge Please schedule follow-up with PCP/Providers prior to discharge and provide printouts Portions of this chart may have been created with [employer] voice recognition software. Occasional wrong-word or ?sound-like? substitutions may have occurred due to the inherent limitations of voice recognition software. Please read the chart carefully and recognize, using context, where the substitutions have occurred. CC- PCP - Problem Maintenance (1) Toe gangrene Status: Acute - Follow up Plan Disposition: [facility] Prognosis: Fair Rehab Potential: Fair I certify that the patient requires SNF services: Yes Overall status at discharge: patient is progressing back to baseline Medical - DS: Qual - VTE Deep Vein Thrombosis/Pulmonary Embolism Present on Admission: No
--- NOTE | 2016-06-05 13:23 | Discharge Summary ---
Medical - DS: Prov Patient information: Note initiated : 06/05/16 at 1:15 pm Service Date, if different from initiated Date: [] Patient: Ryan Nunes 86 y/o M admitted on 06/03/16 for Cellulitis. Chief Complaint: [] Date of admission: 06/03/16 12:13 Primary care physician: [f_Reg Prim Care Provider] Consults: 06/05/16 09:50 Consult to Physician [CONS] Routine Comment: Consulting Provider: [facility] Reason For Exam: Physician to Consult 06/05/16 10:39 Consult to Physician [CONS] Routine Comment: Consulting Provider: [facility] Reason For Exam: Physician to Consult Medical - DS: Meds - Discharge Medications Prescriptions: Clopidogrel Bisulfate [Plavix] 75 mg PO DAILY #60 tablet HYDROmorphone [Dilaudid] 0.5 mg PO Q4-6HP PRN #14 tablet PRN Reason: Pain Pantoprazole [Protonix] 40 mg PO QAMAC #30 tablet metFORMIN HCL [Metformin HCl ER] 500 mg PO DAILY #30 tab.er.24 Active and Home Medications: Home Medications Carvedilol [Coreg] 12.5 mg PO BIDCC 04/15/16 [History Confirmed 06/03/16 Last Taken 06/03/16 06:57] Digoxin [Lanoxin] 125 mcg PO DAILY 04/15/16 [History Confirmed 06/03/16 Last Taken 06/03/16 07:32] Donepezil [Aricept] 10 mg PO HS 04/15/16 [History Confirmed 06/03/16 Last Taken 05/27/16 20:30] Furosemide [Lasix] 40 mg PO BID #30 tablet 04/15/16 [Rx Confirmed 06/03/16 Last Taken 06/03/16 07:31] Levothyroxine [Synthroid] 75 mcg PO DAILY 04/15/16 [History Confirmed 06/03/16 Last Taken 06/03/16 06:47] Niacin [Niacor] 500 mg PO HS 04/15/16 [History Confirmed 06/03/16 Last Taken 21:03] Oxybutynin Chloride [Oxybutynin Chloride ER] 10 mg PO DAILY 04/15/16 [History Confirmed 06/03/16 Last Taken 06/03/16 07:31] sitaGLIPtin [Januvia] 50 mg PO DAILY 04/15/16 [History Confirmed 06/03/16 Last Taken 06/03/16 07:32] Albuterol Sulfate [Ventolin] 2.5 mg NEB DAILY 05/14/16 [History Confirmed Last Taken 06/01/16 14:31] Cholecalciferol (Vitamin D3) [Vitamin D3] 2,000 unit PO DAILY 05/14/16 [History Confirmed 06/03/16 Last Taken 05/28/16 08:35] Clobetasol Propionate/Emoll [Clobetasol Emollient 0.05% Crm] 15 gm TP DAILY 12/20 [History Confirmed 06/03/16 Last Taken 05/18/16 21:00] Docusate Sodium [Colace] 100 mg PO Q48@0900 05/14/16 [History Confirmed Last Taken 06/03/16 07:32] HYDROmorphone HCL [Dilaudid] 2 mg PO Q4-6HP PRN 05/14/16 [History Confirmed 04/21 Last Taken 05/28/16 09:00] Polyethylene Glycol 3350 17 gm PO QDP PRN 05/14/16 [History Confirmed 06/03/16 Last Taken 05/18/16 08:00] Tamsulosin [Flomax] 0.4 mg PO HS capsule 05/28/16 [Rx Confirmed 06/03/16 Last Taken 06/02/16 21:00] Tiotropium [place] [Spiriva] 18 mcg INH DAILY 05/28/16 [History Confirmed Last Taken Unknown] Verapamil HCl [Verapamil ER] 180 mg PO DAILY 05/28/16 [History Confirmed Last Taken 06/03/16 07:30] Clopidogrel Bisulfate [Plavix] 75 mg PO DAILY #60 tablet 06/05/16 [Rx Last Taken Unknown] HYDROmorphone [Dilaudid] 0.5 mg PO Q4-6HP PRN #14 tablet 06/05/16 [Rx Last Taken Unknown] Pantoprazole [Protonix] 40 mg PO QAMAC #30 tablet 06/05/16 [Rx Last Taken Unknown] metFORMIN HCL [Metformin HCl ER] 500 mg PO DAILY #30 tab.er.24 06/05/16 [Rx Last Taken Unknown] Medical - DS: Hosp Hospital course: Mr. Nunes is a 86 year old male - Time Spent with Patient Total time spent providing and/or coordinating discharge services: Medical - DS: Exam - Constitutional Vitals: Vital Signs Temp Pulse Resp BP BP Pulse Ox 06/05/16 12:21 97.6 F 90 16 137/70 97 06/05/16 10:27 16 94 06/05/16 07:05 98.2 F 16 133/66 94 06/05/16 03:40 99.1 F 73 20 150/65 96 06/05/16 00:00 98.3 F 77 18 165/54 94 06/04/16 20:00 97.6 F 67 16 129/52 95 06/04/16 16:43 97.2 F L 50 L 16 126/55 100 06/04/16 15:01 97.4 F L 54 L 12 131/53 99 06/04/16 14:49 58 L 10 L 123/46 99 06/04/16 14:40 59 L 10 L 134/46 99 06/04/16 14:35 61 10 L 134/65 98 06/04/16 14:33 97.5 F L 56 L 14 111/51 97 Intake and Output 06/04/16 06/05/16 06/05/16 21:59 05:59 13:59 Intake Total 920 / 920 300 / 300 220 / 220 Output Total 701 / 701 52 / 52 Balance 219 / 219 248 / 248 220 / 220 Intake: IV 800 / 800 Oral 120 / 120 300 / 300 220 / 220 Output: Void Amount 600 / 600 50 / 50 Straight 600 / 600 # of times incontinent of 1 / 1 2 / 2 urine Estimated Blood Loss 100 / 100 Other: Meal Dinner Lunch Percent of Meal Consumed 75% 75% Feeding Ability Independent Assist with Tray Set Up # Voids 1 Weight 185 lb Medical - DS: Data Labs on day of discharge: Labs from last 24 hours 06/05/16 06/05/16 06/05/16 04:18 04:18 04:18 WBC 5.3 RBC 3.91 L Hgb 9.2 L Hct 29.6 L MCV 75.6 L MCH 23.6 L MCHC 31.2 RDW 32.7 H Plt Count 134 L MPV 10.3 Total Counted 100 Seg Neutrophils % 79 H Band Neutrophils % Not Reportable Lymphocytes % 11 L Monocytes % (Manual) 10 H Eosinophils % (Manual) Basophils % (Manual) Platelet Estimate Decreased A RBC Morphology Abnorm A Hypochromasia 1+ A Anisocytosis 3+ A Microcytosis 1+ A Ovalocytes 1+ A PT 16.4 H INR 1.3 H Sodium 143 Potassium 3.6 Chloride 102 Carbon Dioxide 31 H Anion Gap 10.0 BUN 19 Creatinine 1.3 H GFR Calculation 49 Glucose 99 Uric Acid 8.1 H Calcium 9.6 Phosphorus 2.6 L Magnesium 2.2 Total Bilirubin 0.3 Direct Bilirubin < 0.2 GGT 47 AST 27 ALT 26 Alkaline Phosphatase 56 Lactate Dehydrogenase 170 Total Protein 5.8 L Albumin 3.3 Globulin 2.5 Albumin/Globulin Ratio 1.3 Triglycerides 74 06/04/16 06/04/16 18:10 18:10 WBC 5.2 RBC 4.57 Hgb 10.8 L Hct 34.9 L MCV 76.4 L MCH 23.6 L MCHC 30.9 L RDW 32.9 H Plt Count 141 MPV 9.4 Total Counted 100 Seg Neutrophils % 77 Band Neutrophils % 2 Lymphocytes % 13 L Monocytes % (Manual) 6 Eosinophils % (Manual) 1 Basophils % (Manual) 1 Platelet Estimate Normal RBC Morphology Abnormal Hypochromasia 2+ A Anisocytosis 3+ A Microcytosis 1+ A Ovalocytes PT INR Sodium 142 Potassium 3.6 Chloride 100 Carbon Dioxide 31 H Anion Gap 11.0 BUN 19 Creatinine 1.3 H GFR Calculation 49 Glucose 73 Uric Acid 8.0 Calcium 10.0 Phosphorus 3.6 Magnesium 2.3 Total Bilirubin 0.5 Direct Bilirubin < 0.2 GGT 49 AST 32 ALT 31 Alkaline Phosphatase 55 Lactate Dehydrogenase 195 Total Protein 6.6 Albumin 3.6 Globulin 3.0 Albumin/Globulin Ratio 1.2 Triglycerides 59 Medical - DS: A/P - Patient/Caregiver Discharge Instructions Additional Instructions: Schedule an appointment with Dr Patel in 3-4 weeks for surgical follow up. Patient to fill scripts from Dr Patel after discharge for Plavix and Protonix. (in the chart) No tub baths swimming or hot tub for 2 weeks status post Angiogram done on . Schedule Follow up with [facility] for Dr Huerta in 1 week. Weight bearing to bathroom with post op shoe on, may work with P.T. for balance training with shoe on but no ambulation in hallway yet. continue postop care as per orthopedics Recommendations: Left foot Transmetatarsal Amputation done 06/04/16, Per Dr Huerta: Wound care to Left foot with dressing changes to start 06/06/16 to cleanse with normal saline then apply Silvasorb gel to suture line then apply Xeroform gauze on top, apply gauze then wrap with Kerlix and Sravan wrap. Change dressing every other day. Schedule Follow-up with nephrology Dr Carreno as outpatient for management of chronic disease Close follow-up of blood sugars and diabetes management per primary care physician Follow-up PCP in 5-10 days- Call and schedule discontinue Coumadin/Lantus Continue Prandin to avoid hypoglycemia Coumadin as per orthopedics for post hip DVT prophylaxis I recommend SNF physician to check CBC BMP UA as a posthospital follow-up Continue aggressive bowel regimen to prevent constipation Continue fall precautions Continue aggressive PT, OT at SNF All meals on chair sitting upright at 90 degrees to prevent aspiration Return to ER if worsening fever chills shortness of breath, diarrhea, bleeding Review risk and side effect profile of medications including Plavix. Side effect may include mild to severe reaction including life-threatening intracranial hemorrhage and even which can be prevented by close follow- up with care providers and monitoring for symptoms/neuro changes at SNF Continue diet and activity as advised Discussed importance of medication adherence Please review medication list with patient prior to discharge Please schedule follow-up with PCP/Providers prior to discharge and provide printouts Portions of this chart may have been created with [employer] voice recognition software. Occasional wrong-word or ?sound-like? substitutions may have occurred due to the inherent limitations of voice recognition software. Please read the chart carefully and recognize, using context, where the substitutions have occurred. CC- PCP Prescriptions: Clopidogrel Bisulfate [Plavix] 75 mg PO DAILY #60 tablet HYDROmorphone [Dilaudid] 0.5 mg PO Q4-6HP PRN #14 tablet PRN Reason: Pain Pantoprazole [Protonix] 40 mg PO QAMAC #30 tablet metFORMIN HCL [Metformin HCl ER] 500 mg PO DAILY #30 tab.er.24 - Problem Maintenance (1) Toe gangrene Status: Acute - Follow up Plan Follow up with: Pina Vizcarra MD [Primary Care Provider] - (call/schedule hospital follow up to be seen in 5-10 days.) Jose M Huerta MD [Physician] - (Call/Schedule follow up to be seen in one week. ) Derick Patel MD [Physician] - (call/schedule follow up to angiogram in 3-4 weeks. ) Willie Carreno MD [Physician] - Disposition: Xfer SNF Prognosis: Fair Medical - DS: Qual - VTE Deep Vein Thrombosis/Pulmonary Embolism Present on Admission: No
[2016-06-05] MEDS ORDERED: DAPTOmycin 500 MG VIAL IV SCH (14:00)
[2016-06-05] MEDS ORDERED: WARFARIN 2 MG TABLET PO SCH ×2 (14:00)
[2016-06-06] MEDS ORDERED: DOCUSATE SODIUM 100 MG CAPSULE PO SCH (09:00)
== END 2016-06-05 13:10 | DRG 240 ==
LOC: MEDSUR 12:13
PROVIDERS: ADMIT Internal Medicine; ATTEND Internal Medicine